=== PATIENT | female | born 1940 | race Asian ===

== ENCOUNTER 2018-02-12 23:22 | Inpatient (IN) | payer MEDICARE, OTHER ==
[~2018-02-12] VITALS: Ht 157.5 cm; Wt 39.5 kg
[~2018-02-12 23:22] MED LIST: BYSTOLIC10 MG ORAL; HYDRALAZINE HC100 MG ORAL; NIFEDIPINE XL30 M1 ORAL; SILDENAFIL20 MG ORAL
[2018-02-12] MEDS ORDERED: Sodium Chloride 500ML 500 ML IV ONE (23:31)
[2018-02-12 23:46] VITALS: BP 146/53
[2018-02-13] VITALS (10 sets, daily range): BP systolic 86–140; BP diastolic 40–78
--- NOTE | 2018-02-13 00:14 | Emergency Room Report ---
History of Present Illness General Chief Complaint: Chest Pain Source: Patient, Medical Record Present Illness HPI Patient was brought in with complaints of chest pain Started several hours ago prior to arrival Patient is at a nursing facility She had dialysis earlier in the morning today Feels of the pain started several hours after that Midsternal 5 out of 10 Denies any shortness of breath or cough and eyes any back or flank pain Patient gets dialysis Sunday and Saturdays Denies any fevers or chills Allergies: Coded Allergies: OLMESARTAN (Verified Allergy, Mild, 01/18/14) SWOOLEN BODY HEPARIN (Verified Adverse Reaction, Severe, 01/18/14) TOLD ALEJANDRA RE ICNov THAT PATIENT CANNOT HAVE HEPARIN. Patient History Past Medical History: see triage record Pertinent Family History: none Reviewed Nursing Documentation: PMH: Agreed; PSxH: Agreed Nursing Documentation-PMH Past Medical History: No History, Except For Hx Cardiac Problems: Yes - Heart disease; Heart failure; Cardiomyopathy; NSTEMI Hx Hypertension: Yes - Anemia Hx Diabetes: Yes Hx Cancer: No Hx Gastrointestinal Problems: No - Dysphagia; ESRD; Dialysis Hx Dialysis: Yes - [facility] LEFT ARM PERMACATH RIGHT SIDE CHEST Hx Neurological Problems: Yes Hx Cerebrovascular Accident: Yes - ICB NOV 2012 WITH SURGERY Hx Neurologic Surgery: Yes - 2013 Review of Systems All Other Systems: negative except mentioned in HPI Physical Exam Vital Signs Date Time Temp Pulse Resp B/P (MAP) Pulse Ox O2 Delivery O2 Flow Rate FiO2 02/12/18 23:23 88 16 141/76 98 Room Air Sp02 EP Interpretation: reviewed, normal General Appearance: no apparent distress Head: normocephalic, atraumatic Eyes: bilateral eye PERRL, bilateral eye EOMI ENT: normal pharynx, no angioedema Neck: supple Respiratory: lungs clear, normal breath sounds Cardiovascular #1: regular rate, rhythm, no edema Gastrointestinal: non tender Genitourinary: no CVA tenderness Musculoskeletal: back normal Neurologic: alert, oriented x3 Skin: other Lymphatic: no adenopathy Medical Decision Making Diagnostic Impression: Primary Impression: ACS (acute coronary syndrome) Additional Impression: Elevated troponin ER Course Patient is a fairly complex patient with multiple differential to consideration including but not limited to cardiac cardiopulmonary and vascular emergencies Patient's EKG does not show any obvious ST elevations Patient has done well throughout his stay At this time troponin elevated However the patient does have renal disease and dialysis Remains hemodynamically stable and admitted for further inpatient care Labs Test 02/12/18 23:59 White Blood Count 5.5 K/UL (4.8-10.8) Red Blood Count 4.11 M/UL (4.20-5.40) Hemoglobin 14.5 G/DL (12.0-16.0) Hematocrit 42.1 % (37.0-47.0) Mean Corpuscular Volume 102 FL (80-99) Mean Corpuscular Hemoglobin 35.3 PG (27.0-31.0) Mean Corpuscular Hemoglobin Concent 34.5 G/DL (32.0-36.0) Red Cell Distribution Width 15.9 % (11.6-14.8) Platelet Count 129 K/UL (150-450) Mean Platelet Volume 9.8 FL (6.5-10.1) Neutrophils (%) (Auto) 72.3 % (45.0-75.0) Lymphocytes (%) (Auto) 17.5 % (20.0-45.0) Monocytes (%) (Auto) 7.3 % (1.0-10.0) Eosinophils (%) (Auto) 1.4 % (0.0-3.0) Basophils (%) (Auto) 1.6 % (0.0-2.0) Sodium Level 130 MMOL/L (136-145) Potassium Level 4.4 MMOL/L (3.5-5.1) Chloride Level 91 MMOL/L (98-107) Carbon Dioxide Level 30 MMOL/L (21-32) Anion Gap 9 mmol/L (5-15) Blood Urea Nitrogen 17 mg/dL (7-18) Creatinine 3.2 MG/DL (0.55-1.30) Estimat Glomerular Filtration Rate mL/min (>60) Glucose Level 173 MG/DL (74-106) Calcium Level 7.8 MG/DL (8.5-10.1) Total Bilirubin 1.4 MG/DL (0.2-1.0) Direct Bilirubin 0.2 MG/DL (0.0-0.3) Aspartate Amino Transf (AST/SGOT) 56 U/L (15-37) Alanine Aminotransferase (ALT/SGPT) 14 U/L (12-78) Alkaline Phosphatase 135 U/L (46-116) Total Creatine Kinase 107 U/L (26-308) Creatine Kinase MB 1.9 NG/ML (0.0-3.6) Creatine Kinase MB Relative Index 1.7 Troponin I 1.550 ng/mL (0.000-0.056) Pro-B-Type Natriuretic Peptide 5946 pg/mL (0-125) Total Protein 9.6 G/DL (6.4-8.2) Albumin 2.6 G/DL (3.4-5.0) Globulin 7.0 g/dL Albumin/Globulin Ratio 0.4 (1.0-2.7) Lipase 219 U/L (73-393) EKG Diagnostic Results Rate: normal Rhythm: NSR ST Segments: other - Nonspecific ST and T-wave changes Rhythm Strip Diag. Results EP Interpretation: yes Rate: 88 Rhythm: NSR, no PVC's, no ectopy Chest X-Ray Diagnostic Results Chest X-Ray Diagnostic Results : Chest X-Ray Ordered: Yes # of Views/Limited/Complete: 1 View Indication: Chest Pain EP Interpretation: Yes Interpretation: no consolidation, no effusion, no pneumothorax Impression: No acute disease Electronically Signed by: Arcenio Rodriguez DO Last Vital Signs Date Time Temp Pulse Resp B/P (MAP) Pulse Ox O2 Delivery O2 Flow Rate FiO2 02/12/18 23:23 88 16 141/76 98 Room Air Status: improved Disposition: ADMITTED INPATIENT Condition: Serious Referrals: NON PHYSICIAN (PCP) Arcenio Rodriguez DO Feb 13, 2018 00:14
[2018-02-13] MEDS ORDERED: CALCIUM CARBON200 M1 PO (00:17)
[2018-02-13] MEDS ORDERED: ATORVASTATIN CA80 MG ORAL (00:17)
[2018-02-13] MEDS ORDERED: BENZONATATE100 MG ORAL (00:17)
[2018-02-13] MEDS ORDERED: CARVEDILOL6.25 MG ORAL (00:19)
[2018-02-13] MEDS ORDERED: PLAVIX75 MG ORAL (00:19)
[2018-02-13] MEDS ORDERED: CATAPRES0.1 MG ORAL (00:19)
[2018-02-13] MEDS ORDERED: FLUTICASONE PRO15 GM TOPIC (00:21)
[2018-02-13] MEDS ORDERED: DULCOLAX10 MG RC (00:21)
[2018-02-13] MEDS ORDERED: DIPHENHYDRAMINE25 M1 ORAL (00:21)
[2018-02-13 00:23] LABS: BASOPHILS % (AUTO) 1.6 % (0.0-2.0); EOSINOPHILS % (AUTO) 1.4 % (0.0-3.0); HEMATOCRIT 42.1 % (37.0-47.0); HEMOGLOBIN 14.5 G/DL (12.0-16.0); LYMPHOCYTES % (AUTO) 17.5 % (20.0-45.0); MEAN CORPUSCULAR VOLUME 102 FL (80-99); MONOCYTES % (AUTO) 7.3 % (1.0-10.0); NEUTROPHILS % (AUTO) 72.3 % (45.0-75.0); PLATELET COUNT 129 K/UL (150-450); RED BLOOD COUNT 4.11 M/UL (4.20-5.40); RED CELL DISTRIBUTION WIDTH 15.9 % (11.6-14.8); WHITE BLOOD COUNT 5.5 K/UL (4.8-10.8)
[2018-02-13] MEDS ORDERED: HEPARIN SO5000 UNIT2 SUBQ (00:24)
[2018-02-13] MEDS ORDERED: GUAIFENESI100 MG/5 M ORAL (00:24)
[2018-02-13] MEDS ORDERED: HYDROXYZINE HCL25 M1 PO (00:24)
[2018-02-13] MEDS ORDERED: LANTUS SOL100 UNIT/1 SUBQ (00:25)
[2018-02-13] MEDS ORDERED: LIDODERM700 M1 TOPIC (00:25)
[2018-02-13] MEDS ORDERED: ISOSORBIDE MONO30 M1 PO (00:25)
[2018-02-13] MEDS ORDERED: NEPHROVITE1 TAB ORAL (00:27)
[2018-02-13] MEDS ORDERED: LISINOPRIL10 MG ORAL (00:27)
[2018-02-13] MEDS ORDERED: MELATONIN3 M1 ORAL (00:27)
[2018-02-13] MEDS ORDERED: ACTOS45 MG ORAL (00:28)
[2018-02-13] MEDS ORDERED: MIRTAZAPINE15 MG ORAL (00:28)
[2018-02-13] MEDS ORDERED: RENVELA0.8 GM ORAL (00:28)
[2018-02-13] MEDS ORDERED: SENSIPAR30 MG ORAL (00:29)
[2018-02-13] MEDS ORDERED: Morphine Sulfate 2mg/ml Inj IVP ONE (00:45)
[2018-02-13 00:48] LABS: ANION GAP 9 mmol/L (5-15); BLOOD UREA NITROGEN 17 mg/dL (7-18); CALCIUM 7.8 MG/DL (8.5-10.1); CARBON DIOXIDE 30 MMOL/L (21-32); CHLORIDE 91 MMOL/L (98-107); CREATININE 3.2 MG/DL (0.55-1.30); POTASSIUM 4.4 MMOL/L (3.5-5.1); SODIUM 130 MMOL/L (136-145)
[2018-02-13 01:00] LABS: ALANINE AMINOTRANSFERASE 14 U/L (12-78); ALBUMIN 2.6 G/DL (3.4-5.0); ALBUMIN/GLOBULIN RATIO 0.4 (1.0-2.7); ALKALINE PHOSPHATASE 135 U/L (46-116); ASPARTATE AMINO TRANSFERASE 56 U/L (15-37); BILIRUBIN,TOTAL 1.4 MG/DL (0.2-1.0); CKMB 1.9 NG/ML (0.0-3.6); CREATINE KINASE 107 U/L (26-308)
[2018-02-13 01:09] LABS: BILIRUBIN,DIRECT 0.2 MG/DL (0.0-0.3)
[2018-02-13] MEDS ORDERED: SEROQUEL50 MG ORAL (04:08)
[2018-02-13] MEDS ORDERED: TRAMADOL HCL50 MG ORAL (04:08)
[2018-02-13] MEDS ORDERED: guaiFENesin 100mg/5ml Liq ud ORAL PRN (04:15)
[2018-02-13] MEDS ORDERED: HydrOXYzine tab 25 MG TAB ORAL PRN (04:15)
[2018-02-13] MEDS ORDERED: Heparin 5000 units/ml inj SUBQ SCH (06:00)
[2018-02-13] MEDS: NovoLOG Insulin Flexpen SUBQ SCH ×4 (06:30→21:21)
[2018-02-13] MEDS ORDERED: Imdur 30mg tab ORAL SCH (09:00)
[2018-02-13] MEDS ORDERED: Lisinopril 10mg tab ORAL SCH (09:00)
[2018-02-13] MEDS ORDERED: Carvedilol 6.25mg Tab ORAL SCH (09:00)
--- NOTE | 2018-02-13 09:24 | Diagnostic Imaging Report ---
Indication: Chest pain Technique: XRAY Chest 1v Comparison: 01/18/2014 Findings: Limited exam with low lung volumes and patient rotation. Heart is enlarged. Aorta is calcified and tortuous. There is mild interstitial edema. Linear atelectasis or scarring is noted at the left base. There is no large pleural effusion. No definite pneumothorax. There is osteopenia and degenerative change of the spine. Question mild age-indeterminate mid and lower thoracic vertebral body compression deformities. The previously seen dialysis catheter has been removed. There are multiple clips at the level of the left elbow/arm possibly related to dialysis access. There are atherosclerotic vascular calcifications. IMPRESSION: Limited exam. Cardiomegaly and mild interstitial opacification/edema. Linear opacity in the left midlung likely related to subsegmental atelectasis or scarring. Osteopenia with questionable mild compression deformities of some thoracic vertebral bodies. Clinical correlation recommended. Dedicated imaging of the spine can be obtained as clinically indicated. Atherosclerosis. Findings suggestive of end-stage renal disease/dialysis. Correlate clinically. Study obtained via the emergency department however patient admitted to the hospital at time of dictation of the final report.
[2018-02-13] MEDS: Nephrovite tab (Rena-Vite) ORAL SCH (09:27)
[2018-02-13] MEDS: Benzonatate 100mg Perles ORAL SCH ×3 (09:27→17:39)
[2018-02-13] MEDS: Renvela 800mg Pkt ORAL SCH ×3 (09:27→17:39)
[2018-02-13] MEDS: Sensipar 30mg Tab ORAL SCH (09:30)
[2018-02-13] MEDS: Levemir Flexpen SUBQ SCH (09:46)
--- NOTE | 2018-02-13 11:16 | History & Physical ---
History and Physical History & Physicial Dictated for Int Med-Dr Garcia no. [id number]. ANNY VALVERDE Feb 13, 2018 11:16
[2018-02-13 12:19] LABS: WHITE BLOOD COUNT 6.9 K/UL (4.8-10.8)
[2018-02-13 12:20] LABS: BASOPHILS % (AUTO) 1.3 % (0.0-2.0); EOSINOPHILS % (AUTO) 3.1 % (0.0-3.0); HEMOGLOBIN 11.6 G/DL (12.0-16.0); LYMPHOCYTES % (AUTO) 11.6 % (20.0-45.0); MEAN CORPUSCULAR VOLUME 104 FL (80-99); MONOCYTES % (AUTO) 9.3 % (1.0-10.0); NEUTROPHILS % (AUTO) 74.7 % (45.0-75.0); PLATELET COUNT 104 K/UL (150-450); RED BLOOD COUNT 3.38 M/UL (4.20-5.40)
--- NOTE | 2018-02-13 12:40 | Consultation ---
History of Present Illness General Date patient seen: Feb 13, 2018 Chief Complaint: Chest Pain Reason for Consultation: cough Present Illness HPI 77 year old female with hx of ESRF, on HD, DM, PVD, with ulcers on her right dorman and gangrenous toe, prison resident CHELSEA with cc of dyspnea, productive cough and chest pain. Pt is a poor historian and most of the information is obtained from the grand son at the bed site. She looks cachectic and chronically ill, in no acute distress. Allergies: Coded Allergies: OLMESARTAN (Verified Allergy, Mild, 01/18/14) SWOOLEN BODY DRONABINOL (Verified Allergy, Unknown, 02/13/18) HEPARIN (Verified Adverse Reaction, Severe, 01/18/14) DR TOLD SONS RE ICNov THAT PATIENT CANNOT HAVE HEPARIN. Medication History Scheduled Atorvastatin Calcium* (Lipitor*), 80 MG ORAL BEDTIME, (Reported) Benzonatate* (Benzonatate*), 100 MG ORAL THREE TIMES A DAY, (Reported) Calcium Carbonate (Calcium Carbonate), 200 MG PO EVERY 8 HOURS, (Reported) Carvedilol* (Carvedilol*), 6.25 MG ORAL EVERY 12 HOURS, (Reported) Cinacalcet* (Sensipar*), 30 MG ORAL DAILY, (Reported) Clonidine Hcl* (Catapres*), 0.1 MG ORAL BID, (Reported) Clopidogrel Bisulfate* (Plavix*), 75 MG ORAL DAILY, (Reported) Fluticasone Propionate (Fluticasone Propionate), 1 APPLIC TOPIC TWICE A DAY, ( Reported) Heparin Sod (Porcine) (Heparin Sodium*), 5,000 UNITS SUBQ EVERY 8 HOURS, ( Reported) Insulin Glargine (Lantus), 5 UNITS SUBQ DAILY, (Reported) Isosorbide Mononitrate (Isosorbide Mononitrate Er), 30 MG PO DAILY, (Reported) Lisinopril* (Lisinopril*), 10 MG ORAL DAILY, (Reported) Mirtazapine* (Remeron*), 15 MG ORAL BEDTIME, (Reported) Pioglitazone Hcl* (Actos*), 45 MG ORAL DAILY, (Reported) Quetiapine Fumarate (Seroquel), 25 MG ORAL 3XW, (Reported) Sevelamer Carbonate* (Renvela*), 800 MG ORAL THREE TIMES A DAY, (Reported) Vitamin B Cmplx/Vit C/Folic AC (Nephro-Luisa Tablet), 1 TAB ORAL DAILY, (Reported ) Scheduled PRN Bisacodyl (Dulcolax), 10 MG RC EVERY 6 HOURS PRN for Constipation, (Reported) Diphenhydramine Hcl* (Diphenhydramine Hcl*), 25 MG ORAL Q6H PRN for Itching, ( Reported) Guaifenesin* (Guaifenesin), 10 ML ORAL Q4H PRN for For Cough, (Reported) Hydroxyzine Hcl (Hydroxyzine Hcl), 25 MG PO Q6HR PRN for Itching, (Reported) Lidocaine (Lidoderm), 1 PATCH TOPIC EVERY 12 HOURS PRN for For Pain, (Reported) Tramadol Hcl* (Ultram*), 25 MG ORAL Q6H PRN for Moderate Pain (Pain Scale 4-6), (Reported) Discontinued Medications Hydralazine Hcl* (Hydralazine Hcl*), 100 MG ORAL EVERY 8 HOURS, (Reported) Discontinued Reason: MD discontinued med Melatonin (Melatonin), 3 MG ORAL BEDTIME PRN for Insomnia, (Reported) Discontinued Reason: MD discontinued med Nebivolol Hcl (Bystolic*), 20 MG ORAL DAILY, (Reported) Discontinued Reason: MD discontinued med Nifedipine Xl* (Nifedipine Xl*), 90 MG ORAL DAILY, (Reported) Discontinued Reason: MD discontinued med Sildenafil Citrate (Sildenafil), 25 MG ORAL TID, (Reported) Discontinued Reason: MD discontinued med Patient History Healthcare decision maker Resuscitation status Do Not Resuscitate Advanced Directive on File Yes Past Medical/Surgical History Past Medical/Surgical History: (1) Diabetes mellitus (2) PVD (peripheral vascular disease) (3) Severe protein-calorie malnutrition (4) ESRD (end stage renal disease) on dialysis Review of Systems All Other Systems: negative except mentioned in HPI Physical Exam General Appearance: cachetic Lines, tubes and drains: peripheral HEENT: normocephalic, atraumatic Neck: non-tender, normal alignment Respiratory/Chest: chest wall non-tender, lungs clear Breasts: no masses Cardiovascular/Chest: normal peripheral pulses Abdomen: normal bowel sounds, non tender Genitourinary/Rectal: normal genital exam Extremities: normal range of motion Skin Exam: other - vascular ulcer at right dorman, gangrenous toe Last 24 Hour Vital Signs Date Time Temp Pulse Resp B/P (MAP) Pulse Ox O2 Delivery O2 Flow Rate FiO2 02/13/18 09:27 140/68 02/13/18 09:27 140/68 02/13/18 09:27 140/68 02/13/18 09:27 75 140/68 02/13/18 08:00 97.0 75 20 140/68 99 Room Air 97.0 02/13/18 08:00 79 02/13/18 04:00 80 02/13/18 04:00 97.2 75 16 133/74 99 97.2 02/13/18 02:30 97.5 81 18 138/77 98 Room Air 97.5 02/13/18 02:12 81 02/13/18 02:05 97.7 79 16 140/78 98 Room Air 97.7 02/13/18 01:45 97.7 79 16 140/78 98 Room Air 97.7 02/13/18 01:32 97.7 02/13/18 00:45 97.9 78 18 134/65 99 Room Air 97.9 02/12/18 23:46 83 18 Room Air 02/12/18 23:46 97.9 83 18 146/53 98 Room Air 97.9 02/12/18 23:23 88 16 141/76 98 Room Air Intake and Output 02/12/18 02/13/18 19:00 07:00 Intake Total 740 ml Balance 740 ml Intake Oral 240 ml IV Total 500 ml Laboratory Tests Test 02/12/18 23:59 02/13/18 11:20 White Blood Count 5.5 K/UL (4.8-10.8) 6.9 K/UL (4.8-10.8) Red Blood Count 4.11 M/UL (4.20-5.40) L 3.38 M/UL (4.20-5.40) L Hemoglobin 14.5 G/DL (12.0-16.0) 11.6 G/DL (12.0-16.0) L Hematocrit 42.1 % (37.0-47.0) 35.0 % (37.0-47.0) L Mean Corpuscular Volume 102 FL (80-99) H 104 FL (80-99) H Mean Corpuscular Hemoglobin 35.3 PG (27.0-31.0) H 34.3 PG (27.0-31.0) H Mean Corpuscular Hemoglobin Concent 34.5 G/DL (32.0-36.0) 33.1 G/DL (32.0-36.0) Red Cell Distribution Width 15.9 % (11.6-14.8) H 16.0 % (11.6-14.8) H Platelet Count 129 K/UL (150-450) L 104 K/UL (150-450) L Mean Platelet Volume 9.8 FL (6.5-10.1) 8.8 FL (6.5-10.1) Neutrophils (%) (Auto) 72.3 % (45.0-75.0) 74.7 % (45.0-75.0) Lymphocytes (%) (Auto) 17.5 % (20.0-45.0) L 11.6 % (20.0-45.0) L Monocytes (%) (Auto) 7.3 % (1.0-10.0) 9.3 % (1.0-10.0) Eosinophils (%) (Auto) 1.4 % (0.0-3.0) 3.1 % (0.0-3.0) H Basophils (%) (Auto) 1.6 % (0.0-2.0) 1.3 % (0.0-2.0) Sodium Level 130 MMOL/L (136-145) L Pending Potassium Level 4.4 MMOL/L (3.5-5.1) Pending Chloride Level 91 MMOL/L (98-107) L Pending Carbon Dioxide Level 30 MMOL/L (21-32) Pending Anion Gap 9 mmol/L (5-15) Blood Urea Nitrogen 17 mg/dL (7-18) Pending Creatinine 3.2 MG/DL (0.55-1.30) H Pending Estimat Glomerular Filtration Rate mL/min (>60) Pending Glucose Level 173 MG/DL (74-106) H Pending Calcium Level 7.8 MG/DL (8.5-10.1) L Pending Total Bilirubin 1.4 MG/DL (0.2-1.0) H Pending Direct Bilirubin 0.2 MG/DL (0.0-0.3) Aspartate Amino Transf (AST/SGOT) 56 U/L (15-37) H Pending Alanine Aminotransferase (ALT/SGPT) 14 U/L (12-78) Pending Alkaline Phosphatase 135 U/L (46-116) H Pending Total Creatine Kinase 107 U/L (26-308) Creatine Kinase MB 1.9 NG/ML (0.0-3.6) Creatine Kinase MB Relative Index 1.7 Troponin I 1.550 ng/mL (0.000-0.056) Pending Pro-B-Type Natriuretic Peptide 5946 pg/mL (0-125) H Total Protein 9.6 G/DL (6.4-8.2) H Pending Albumin 2.6 G/DL (3.4-5.0) L Pending Globulin 7.0 g/dL Pending Albumin/Globulin Ratio 0.4 (1.0-2.7) L Lipase 219 U/L (73-393) Phosphorus Level Pending Magnesium Level Pending Height (Feet): 5 Height (Inches): 2.00 Weight (Pounds): 87 Medications Current Medications Medications (Trade) Dose Ordered Sig/Finn Route PRN Reason Start Time Stop Time Status Last Admin Dose Admin Atorvastatin Calcium (Lipitor) 80 mg BEDTIME ORAL 02/13/18 21:00 03/15/18 20:59 Benzonatate (Tessalon Perles) 100 mg THREE TIMES A DAY ORAL 02/13/18 09:00 03/15/18 08:59 02/13/18 09:27 Bisacodyl (Dulcolax) 10 mg EVERY 6 HOURS PRN RECTAL Constipation 02/13/18 04:15 03/15/18 04:14 Carvedilol (Coreg) 6.25 mg EVERY 12 HOURS ORAL 02/13/18 09:00 03/15/18 08:59 02/13/18 09:27 Cinacalcet (Sensipar) 30 mg DAILY ORAL 02/13/18 09:00 03/15/18 08:59 02/13/18 09:30 Clonidine HCl (Catapres Tab) 0.1 mg BID ORAL 02/13/18 09:00 03/15/18 08:59 02/13/18 09:27 Clopidogrel Bisulfate (Plavix) 75 mg DAILY ORAL 02/13/18 09:00 03/15/18 08:59 02/13/18 09:26 Dextrose (Dextrose 50%) 25 ml STAT PRN IV Hypoglycemia 02/13/18 04:00 03/15/18 03:59 Dextrose (Dextrose 50%) 50 ml STAT PRN IV Hypoglycemia 02/13/18 04:00 03/15/18 03:59 Diphenhydramine HCl (Benadryl) 25 mg Q6H PRN ORAL Itching 02/13/18 04:15 03/15/18 04:14 Guaifenesin (Robitussin) 200 mg Q4H PRN ORAL For Cough 02/13/18 04:15 03/15/18 04:14 Hydroxyzine HCl (Atarax) 25 mg Q6HR PRN ORAL Itching 02/13/18 04:15 03/15/18 04:14 Insulin Aspart (NovoLOG) BEFORE MEALS AND HS SUBQ 02/13/18 06:30 03/15/18 06:29 Insulin Detemir (Levemir) 5 units DAILY SUBQ 02/13/18 09:00 03/15/18 08:59 02/13/18 09:46 Isosorbide Mononitrate (Imdur) 30 mg DAILY ORAL 02/13/18 09:00 03/15/18 08:59 02/13/18 09:27 Lidocaine (Lidoderm 5% PATCH) 1 patch EVERY 12 HOURS PRN TDERMAL For Pain 02/13/18 04:15 03/15/18 04:14 Lisinopril (Zestril) 10 mg DAILY ORAL 02/13/18 09:00 03/15/18 08:59 02/13/18 09:27 Mirtazapine (Remeron) 15 mg BEDTIME ORAL 02/13/18 21:00 03/15/18 20:59 Non-Formulary Medication (Non-Formulary Med) 1 ea DAILY ORAL 02/13/18 09:00 03/15/18 08:59 UNV Pioglitazone HCl (Actos) 45 mg DAILY ORAL 02/13/18 09:00 03/15/18 08:59 02/13/18 09:27 Quetiapine Fumarate (SEROquel) 25 mg DAILYPRN PRN ORAL PRIOR TO HD SESSIONS ONLY 02/13/18 08:45 03/15/18 08:44 Sevelamer Carbonate (Renvela) 800 mg THREE TIMES A DAY ORAL 02/13/18 09:00 03/15/18 08:59 02/13/18 09:27 Tramadol HCl (Ultram) 25 mg Q6H PRN ORAL Moderate Pain (Pain Scale 4-6) 02/13/18 07:00 02/20/18 06:59 Vitamin B Complex/ Vit C/Folic Acid (Nephrovite) 1 tab DAILY ORAL 02/13/18 09:00 03/15/18 08:59 02/13/18 09:27 Assessment/Plan Problem List: (1) Acute bronchitis ICD Codes: J20.9 - Acute bronchitis, unspecified SNOMED: 34987831 (2) Pulmonary edema ICD Codes: J81.1 - Chronic pulmonary edema SNOMED: 87100122 (3) ESRD (end stage renal disease) on dialysis ICD Codes: N18.6 - End stage renal disease; Z99.2 - Dependence on renal dialysis SNOMED: 861719138 (4) Severe protein-calorie malnutrition ICD Codes: E43 - Unspecified severe protein-calorie malnutrition SNOMED: 392333878 (5) PVD (peripheral vascular disease) ICD Codes: I73.9 - Peripheral vascular disease, unspecified SNOMED: 667703724 (6) Congestive heart failure (CHF) (7) Hypoxia Assessment/Plan check sputum iv abx HD respiratory treatment titrate fio2 to sat of 92% HD by chemical pumper optimize cardiac meds dvt prophylaxis. Get Joyce MD Feb 13, 2018 12:40
[2018-02-13] MEDS ORDERED: Albuterol/Ipratropium 3ml neb HHN PRN (12:45)
[2018-02-13] MEDS ORDERED: Promethazine/Codeine 5ml UD ORAL PRN (12:45)
[2018-02-13 12:50] LABS: ALANINE AMINOTRANSFERASE 13 U/L (12-78); ALBUMIN 2.1 G/DL (3.4-5.0); ALBUMIN/GLOBULIN RATIO 0.4 (1.0-2.7); ALKALINE PHOSPHATASE 113 U/L (46-116); ANION GAP 9 mmol/L (5-15); ASPARTATE AMINO TRANSFERASE 24 U/L (15-37); BILIRUBIN,TOTAL 0.9 MG/DL (0.2-1.0); BLOOD UREA NITROGEN 23 mg/dL (7-18); CALCIUM 7.1 MG/DL (8.5-10.1); CARBON DIOXIDE 32 MMOL/L (21-32); CHLORIDE 93 MMOL/L (98-107); CREATININE 3.9 MG/DL (0.55-1.30); PHOSPHORUS 5.3 MG/DL (2.5-4.9); POTASSIUM 3.2 MMOL/L (3.5-5.1); SODIUM 134 MMOL/L (136-145)
--- NOTE | 2018-02-13 13:30 | History and Physical Report ---
DATE OF ADMISSION: 02/12/2018 CHIEF COMPLAINT: The patient is a 77-year-old female, who presents with complaint of chest pain. HISTORY OF PRESENT ILLNESS: Much of the history and physical was obtained from the patient's son, Tami Lombardo, at the bedside. The patient herself understands Hungarian, however, she is Setswana speaking. The patient is a resident of [facility]. According to staff at [facility], the patient began to experience chest pain about 5 to 6 days ago. Chest pain increased last evening, 02/12/2018. The patient describes the chest pain "allover." The patient had associated dizziness. The patient states she was unable to open her eyes. The chest pain increased over the last 5 to 6 hours prior to admission. The patient presented to [facility]. The patient was found to have elevated troponin and elevated BNP. The patient was admitted for chest pain to rule out acute coronary syndrome. REVIEW OF SYSTEMS: CONSTITUTIONAL: The patient denies weight loss or weight gain. The patient denies fevers or chills. HEENT: The patient denies ear or throat pain. The patient denies headache. CARDIOVASCULAR: The patient complains of chest pain as above. The patient denies palpitations. CHEST: The patient denies wheeze or shortness of breath. ABDOMINAL: The patient denies nausea, vomiting, diarrhea, or constipation. GENITOURINARY: The patient denies dysuria or increased frequency of urination. NEUROMUSCULAR: The patient denies seizures or generalized weakness. PAST MEDICAL HISTORY: Significant for: 1. Coronary artery disease, status post stent placement. 2. Congestive heart failure. 3. End-stage renal disease, on hemodialysis every Sunday, , and Sunday. Last dialysis was February 12, 2018. 4. Diabetes type 2. 5. Hypertension. 6. Cerebrovascular disease, status post cerebrovascular accident in 2013. 7. Peripheral vascular disease. PAST SURGICAL HISTORY: Significant for: 1. Craniotomy in 2013 2. Left hip replacement in 2016. 3. Left upper extremity arteriovenous graft for hemodialysis. 4. Pacemaker implantation in 2016. 5. Renal transplant. 6. Left heart catheterization in 2014 with stent placement. 7. Pacemaker implantation in 2016. CURRENT MEDICATIONS: 1. Lipitor 80 mg p.o. daily. 2. Benzoate 100 mg p.o. q.8 hours p.r.n. 3. Calcium carbonate 200 mg p.o. q.8 hours. 4. Carvedilol 6.2 mg p.o. twice daily. 5. Clonidine 0.1 mg p.o. 4 times daily. 6. Clopidogrel 75 mg p.o. daily. 7. cream applied twice daily. 8. Heparin 5000 units subcutaneously q.8 hours. 9. Hydroxyzine 25 mg p.o. q.6 hours p.r.n. 10. Lantus insulin 5 units subcutaneously daily. 11. Isosorbide mononitrate 30 mg p.o. daily. 12. Lisinopril 10 mg p.o. daily. 13. Melatonin 3 mg p.o. nightly. 14. Nephro-Luisa 1 tablet p.o. daily. 15. Pioglitazone 45 mg p.o. daily. 16. Remeron 15 mg p.o. nightly. 17. Renvela 800 mg p.o. 3 times daily. 18. Sensipar 30 mg p.o. daily. ALLERGIES: To Benicar. SOCIAL HISTORY: The patient is a . The patient denies tobacco or alcohol use. The patient has a grown son, who is at the bedside. PHYSICAL EXAMINATION: VITAL SIGNS: Temperature 97.7, respirations 16, pulse 79, blood pressure 140/78. GENERAL: The patient is a thin-appearing female, in no apparent distress. HEENT: Eyes, pupils equal and responsive to light and accommodation. Extraocular movements are intact. NECK: Supple. No lymphadenopathy. CHEST: Lungs are clear to auscultation bilaterally without wheezes or rales. CARDIOVASCULAR: Regular rhythm and rate. S1, S2 normal without murmurs, rubs, or gallops. ABDOMEN: Soft, nontender, nondistended. Positive bowel sounds. No evidence of hepatosplenomegaly. Currently, no rebound or guarding noted. EXTREMITIES: Negative for clubbing, cyanosis, or edema. There are multiple ulcers over the right leg and right arm which are healing. NEUROLOGIC: Cranial nerves II through XII grossly intact without focal deficits. Motor strength is 5/5, bilaterally intact. Deep tendon reflexes are 2+, plantar. LABORATORY STUDIES: WBC 5.5, hemoglobin 14.5, hematocrit 42.1, platelet 129,000. Sodium 130, potassium 4.4, chloride 91, CO2 30, BUN 17, creatinine 3.3, and glucose 173. Troponin elevated at 1.55. BNP elevated at 5946. ASSESSMENT: This is a 77-year-old female with: 1. Chest pain. 2. Elevated troponin. 3. Acute on chronic congestive heart failure. 4. End-stage renal disease. 5. Coronary artery disease. 6. Cerebrovascular disease. 7. Diabetes type 2. 8. Hypertension. 9. Peripheral vascular disease. 10. Pacemaker in situ. TREATMENT: 1. Chest pain/elevated troponin/congestive heart failure. Cardiology consultation has been obtained with Dr. Abhijit Simental. An echocardiogram is pending. Serial troponin levels will be performed. Serial BMP levels will be performed. 2. End-stage renal disease. The patient's last dialysis was on Monday, February 12, 2018. Nephrology consultation has been obtained with Dr. Newton. We will follow recommendations of Dr. Newton. 3. Coronary artery disease. As above, Cardiology consultation has been obtained with Dr. Simental. 4. History of cerebrovascular disease. 5. Diabetes type 2. The patient has been started on NovoLog sliding scale. 6. Hypertension. Continue lisinopril and Coreg as above. 7. Peripheral vascular disease. 8. Pacemaker in situ. Victorino Merino M.D. DR: Andrés JOB#: [id number] CC:
--- NOTE | 2018-02-13 14:33 | Consultation ---
History of Present Illness General Date patient seen: Feb 13, 2018 Time patient seen: 14:19 Chief Complaint: Chest Pain Reason for Consultation: cough Present Illness HPI 77 yo F with x of ESRD on HD TThS L AVG and R chest permacath, DM2, HLD, CVA 2013 s/p craniotomy,s/p L hip replacement 2016, CHF/ICM s/p PPM 2016, CAD/ NSTEMI s/p stent, PVD w/ ulcers on R dorman and gangrenous toe, alf resident presents to ED on 02/12 with dyspnea, productive cough, CP (midsternal, 02/28) w/ associated dizziness. In ED found to have elevated troponin, BNP. Denies SOB, f/c afebrile, no leukocytosis. At RA. Allergies: Coded Allergies: OLMESARTAN (Verified Allergy, Mild, 01/18/14) SWOOLEN BODY DRONABINOL (Verified Allergy, Unknown, 02/13/18) HEPARIN (Verified Adverse Reaction, Severe, 01/18/14) TOLD SONS RE Nov THAT PATIENT CANNOT HAVE HEPARIN. Medication History Scheduled Atorvastatin Calcium* (Lipitor*), 80 MG ORAL BEDTIME, (Reported) Benzonatate* (Benzonatate*), 100 MG ORAL THREE TIMES A DAY, (Reported) Calcium Carbonate (Calcium Carbonate), 200 MG PO EVERY 8 HOURS, (Reported) Carvedilol* (Carvedilol*), 6.25 MG ORAL EVERY 12 HOURS, (Reported) Cinacalcet* (Sensipar*), 30 MG ORAL DAILY, (Reported) Clonidine Hcl* (Catapres*), 0.1 MG ORAL BID, (Reported) Clopidogrel Bisulfate* (Plavix*), 75 MG ORAL DAILY, (Reported) Fluticasone Propionate (Fluticasone Propionate), 1 APPLIC TOPIC TWICE A DAY, ( Reported) Heparin Sod (Porcine) (Heparin Sodium*), 5,000 UNITS SUBQ EVERY 8 HOURS, ( Reported) Insulin Glargine (Lantus), 5 UNITS SUBQ DAILY, (Reported) Isosorbide Mononitrate (Isosorbide Mononitrate Er), 30 MG PO DAILY, (Reported) Lisinopril* (Lisinopril*), 10 MG ORAL DAILY, (Reported) Mirtazapine* (Remeron*), 15 MG ORAL BEDTIME, (Reported) Pioglitazone Hcl* (Actos*), 45 MG ORAL DAILY, (Reported) Quetiapine Fumarate (Seroquel), 25 MG ORAL 3XW, (Reported) Sevelamer Carbonate* (Renvela*), 800 MG ORAL THREE TIMES A DAY, (Reported) Vitamin B Cmplx/Vit C/Folic AC (Nephro-Luisa Tablet), 1 TAB ORAL DAILY, (Reported ) Scheduled PRN Bisacodyl (Dulcolax), 10 MG RC EVERY 6 HOURS PRN for Constipation, (Reported) Diphenhydramine Hcl* (Diphenhydramine Hcl*), 25 MG ORAL Q6H PRN for Itching, ( Reported) Guaifenesin* (Guaifenesin), 10 ML ORAL Q4H PRN for For Cough, (Reported) Hydroxyzine Hcl (Hydroxyzine Hcl), 25 MG PO Q6HR PRN for Itching, (Reported) Lidocaine (Lidoderm), 1 PATCH TOPIC EVERY 12 HOURS PRN for For Pain, (Reported) Tramadol Hcl* (Ultram*), 25 MG ORAL Q6H PRN for Moderate Pain (Pain Scale 4-6), (Reported) Discontinued Medications Hydralazine Hcl* (Hydralazine Hcl*), 100 MG ORAL EVERY 8 HOURS, (Reported) Discontinued Reason: MD discontinued med Melatonin (Melatonin), 3 MG ORAL BEDTIME PRN for Insomnia, (Reported) Discontinued Reason: MD discontinued med Nebivolol Hcl (Bystolic*), 20 MG ORAL DAILY, (Reported) Discontinued Reason: MD discontinued med Nifedipine Xl* (Nifedipine Xl*), 90 MG ORAL DAILY, (Reported) Discontinued Reason: MD discontinued med Sildenafil Citrate (Sildenafil), 25 MG ORAL TID, (Reported) Discontinued Reason: MD discontinued med Patient History Healthcare decision maker Resuscitation status Do Not Resuscitate Advanced Directive on File Yes Patient History Narrative Pmhx: as above Shx: The patient is a . The patient denies tobacco or alcohol use. The patient has a grown son, who is at the bedside. Fhx: non contributory Review of Systems All Other Systems: negative except mentioned in HPI Physical Exam Physical Exam Narrative GENERAL: The patient is a thin-appearing female, in no apparent distress. HEENT: Eyes, pupils equal and responsive to light and accommodation. Extraocular movements are intact. NECK: Supple. No lymphadenopathy. CHEST: Lungs are clear to auscultation bilaterally without wheezes or rales. CARDIOVASCULAR: Regular rhythm and rate. S1, S2 normal without murmurs, rubs, or gallops. ABDOMEN: Soft, nontender, nondistended. Positive bowel sounds. No evidence of hepatosplenomegaly. Currently, no rebound or guarding noted. EXTREMITIES: Negative for clubbing, cyanosis, or edema. There are multiple ulcers over the right leg and right arm which are healing. Last 24 Hour Vital Signs Date Time Temp Pulse Resp B/P (MAP) Pulse Ox O2 Delivery O2 Flow Rate FiO2 02/13/18 12:00 97.2 68 20 102/49 99 Room Air 97.2 02/13/18 12:00 70 02/13/18 09:27 140/68 02/13/18 09:27 140/68 02/13/18 09:27 140/68 02/13/18 09:27 75 140/68 02/13/18 08:00 97.0 75 20 140/68 99 Room Air 97.0 02/13/18 08:00 79 02/13/18 04:00 80 02/13/18 04:00 97.2 75 16 133/74 99 97.2 02/13/18 02:30 97.5 81 18 138/77 98 Room Air 97.5 02/13/18 02:12 81 02/13/18 02:05 97.7 79 16 140/78 98 Room Air 97.7 02/13/18 01:45 97.7 79 16 140/78 98 Room Air 97.7 02/13/18 01:32 97.7 02/13/18 00:45 97.9 78 18 134/65 99 Room Air 97.9 02/12/18 23:46 83 18 Room Air 02/12/18 23:46 97.9 83 18 146/53 98 Room Air 97.9 02/12/18 23:23 88 16 141/76 98 Room Air Intake and Output 02/12/18 02/13/18 19:00 07:00 Intake Total 740 ml Balance 740 ml Intake Oral 240 ml IV Total 500 ml Laboratory Tests Test 02/12/18 23:59 02/13/18 11:20 White Blood Count 5.5 K/UL (4.8-10.8) 6.9 K/UL (4.8-10.8) Red Blood Count 4.11 M/UL (4.20-5.40) L 3.38 M/UL (4.20-5.40) L Hemoglobin 14.5 G/DL (12.0-16.0) 11.6 G/DL (12.0-16.0) L Hematocrit 42.1 % (37.0-47.0) 35.0 % (37.0-47.0) L Mean Corpuscular Volume 102 FL (80-99) H 104 FL (80-99) H Mean Corpuscular Hemoglobin 35.3 PG (27.0-31.0) H 34.3 PG (27.0-31.0) H Mean Corpuscular Hemoglobin Concent 34.5 G/DL (32.0-36.0) 33.1 G/DL (32.0-36.0) Red Cell Distribution Width 15.9 % (11.6-14.8) H 16.0 % (11.6-14.8) H Platelet Count 129 K/UL (150-450) L 104 K/UL (150-450) L Mean Platelet Volume 9.8 FL (6.5-10.1) 8.8 FL (6.5-10.1) Neutrophils (%) (Auto) 72.3 % (45.0-75.0) 74.7 % (45.0-75.0) Lymphocytes (%) (Auto) 17.5 % (20.0-45.0) L 11.6 % (20.0-45.0) L Monocytes (%) (Auto) 7.3 % (1.0-10.0) 9.3 % (1.0-10.0) Eosinophils (%) (Auto) 1.4 % (0.0-3.0) 3.1 % (0.0-3.0) H Basophils (%) (Auto) 1.6 % (0.0-2.0) 1.3 % (0.0-2.0) Sodium Level 130 MMOL/L (136-145) L 134 MMOL/L (136-145) L Potassium Level 4.4 MMOL/L (3.5-5.1) 3.2 MMOL/L (3.5-5.1) L Chloride Level 91 MMOL/L (98-107) L 93 MMOL/L (98-107) L Carbon Dioxide Level 30 MMOL/L (21-32) 32 MMOL/L (21-32) Anion Gap 9 mmol/L (5-15) 9 mmol/L (5-15) Blood Urea Nitrogen 17 mg/dL (7-18) 23 mg/dL (7-18) H Creatinine 3.2 MG/DL (0.55-1.30) H 3.9 MG/DL (0.55-1.30) H Estimat Glomerular Filtration Rate mL/min (>60) mL/min (>60) Glucose Level 173 MG/DL (74-106) H 161 MG/DL (74-106) H Calcium Level 7.8 MG/DL (8.5-10.1) L 7.1 MG/DL (8.5-10.1) L Total Bilirubin 1.4 MG/DL (0.2-1.0) H 0.9 MG/DL (0.2-1.0) Direct Bilirubin 0.2 MG/DL (0.0-0.3) Aspartate Amino Transf (AST/SGOT) 56 U/L (15-37) H 24 U/L (15-37) Alanine Aminotransferase (ALT/SGPT) 14 U/L (12-78) 13 U/L (12-78) Alkaline Phosphatase 135 U/L (46-116) H 113 U/L (46-116) Total Creatine Kinase 107 U/L (26-308) Creatine Kinase MB 1.9 NG/ML (0.0-3.6) Creatine Kinase MB Relative Index 1.7 Troponin I 1.550 ng/mL (0.000-0.056) 1.421 ng/mL (0.000-0.056) Pro-B-Type Natriuretic Peptide 5946 pg/mL (0-125) H Total Protein 9.6 G/DL (6.4-8.2) H 7.3 G/DL (6.4-8.2) Albumin 2.6 G/DL (3.4-5.0) L 2.1 G/DL (3.4-5.0) L Globulin 7.0 g/dL 5.2 g/dL Albumin/Globulin Ratio 0.4 (1.0-2.7) L 0.4 (1.0-2.7) L Lipase 219 U/L (73-393) Phosphorus Level 5.3 MG/DL (2.5-4.9) H Magnesium Level 2.1 MG/DL (1.8-2.4) Height (Feet): 5 Height (Inches): 2.00 Weight (Pounds): 87 Medications Current Medications Medications (Trade) Dose Ordered Sig/Finn Route PRN Reason Start Time Stop Time Status Last Admin Dose Admin Albuterol/ Ipratropium (Albuterol/ Ipratropium) 3 ml EVERY 4 HOURS PRN HHN Shortness of Breath 02/13/18 12:45 02/18/18 12:44 Atorvastatin Calcium (Lipitor) 80 mg BEDTIME ORAL 02/13/18 21:00 03/15/18 20:59 Benzonatate (Tessalon Perles) 100 mg THREE TIMES A DAY ORAL 02/13/18 09:00 03/15/18 08:59 02/13/18 12:39 Bisacodyl (Dulcolax) 10 mg EVERY 6 HOURS PRN RECTAL Constipation 02/13/18 04:15 03/15/18 04:14 Carvedilol (Coreg) 6.25 mg EVERY 12 HOURS ORAL 02/13/18 09:00 03/15/18 08:59 02/13/18 09:27 Cinacalcet (Sensipar) 30 mg DAILY ORAL 02/13/18 09:00 03/15/18 08:59 02/13/18 09:30 Clonidine HCl (Catapres Tab) 0.1 mg BID ORAL 02/13/18 09:00 03/15/18 08:59 02/13/18 09:27 Clopidogrel Bisulfate (Plavix) 75 mg DAILY ORAL 02/13/18 09:00 03/15/18 08:59 02/13/18 09:26 Dextrose (Dextrose 50%) 25 ml STAT PRN IV Hypoglycemia 02/13/18 04:00 03/15/18 03:59 Dextrose (Dextrose 50%) 50 ml STAT PRN IV Hypoglycemia 02/13/18 04:00 03/15/18 03:59 Diphenhydramine HCl (Benadryl) 25 mg Q6H PRN ORAL Itching 02/13/18 04:15 03/15/18 04:14 Guaifenesin (Robitussin) 200 mg Q4H PRN ORAL For Cough 02/13/18 04:15 03/15/18 04:14 Hydroxyzine HCl (Atarax) 25 mg Q6HR PRN ORAL Itching 02/13/18 04:15 03/15/18 04:14 Insulin Aspart (NovoLOG) BEFORE MEALS AND HS SUBQ 02/13/18 06:30 03/15/18 06:29 02/13/18 12:39 Insulin Detemir (Levemir) 5 units DAILY SUBQ 02/13/18 09:00 03/15/18 08:59 02/13/18 09:46 Isosorbide Mononitrate (Imdur) 30 mg DAILY ORAL 02/13/18 09:00 03/15/18 08:59 02/13/18 09:27 Levofloxacin 100 ml @ 100 mls/hr Q24H IVPB 02/13/18 14:00 02/20/18 13:59 Lidocaine (Lidoderm 5% PATCH) 1 patch EVERY 12 HOURS PRN TDERMAL For Pain 02/13/18 04:15 03/15/18 04:14 Lisinopril (Zestril) 10 mg DAILY ORAL 02/13/18 09:00 03/15/18 08:59 02/13/18 09:27 Mirtazapine (Remeron) 15 mg BEDTIME ORAL 02/13/18 21:00 03/15/18 20:59 Non-Formulary Medication (Non-Formulary Med) 1 ea DAILY ORAL 02/13/18 09:00 03/15/18 08:59 UNV Pioglitazone HCl (Actos) 45 mg DAILY ORAL 02/13/18 09:00 03/15/18 08:59 02/13/18 09:27 Promethazine HCl/ Codeine (Phenergan with Codeine) 5 ml Q4H PRN ORAL For Cough 02/13/18 12:45 03/15/18 12:44 Quetiapine Fumarate (SEROquel) 25 mg DAILYPRN PRN ORAL PRIOR TO HD SESSIONS ONLY 02/13/18 08:45 03/15/18 08:44 Sevelamer Carbonate (Renvela) 800 mg THREE TIMES A DAY ORAL 02/13/18 09:00 03/15/18 08:59 02/13/18 12:39 Tramadol HCl (Ultram) 25 mg Q6H PRN ORAL Moderate Pain (Pain Scale 4-6) 02/13/18 07:00 02/20/18 06:59 Vitamin B Complex/ Vit C/Folic Acid (Nephrovite) 1 tab DAILY ORAL 02/13/18 09:00 03/15/18 08:59 02/13/18 09:27 Assessment/Plan Assessment/Plan Abx: Levaquin 02/13- Assessment: Afebrile, no leukocytosis Dyspnea- 2ry to CHF exacerbation; no PNA -CXR: Cardiomegaly and mild interstitial opacification/edema. Linear opacity in the left midlung likely related to subsegmental atelectasis or scarring. Troponinemia- ?NSTEMI I vs II MACY ESRD on HD TThS L AVG and R chest permacath DM2 HLD CVA/ICH 2013 s/p craniotomy s/p L hip replacement 2016 CHF/ICM s/p PPM 2017 CAD/NSTEMI s/p stent PVD w/ ulcers on R dorman and gangrenous toe alf resident Plan: -D/c Levaquin #1 and monitor off abx -f/u cx -Monitor CBC/BMP, temperatures -cards, renal f/u -aspiration precautions Thank you for this consultation. Will continue to follow along with you. Discussed with Cora Carrillo M.D. Feb 13, 2018 14:33
--- NOTE | 2018-02-13 14:35 | Cardiology Report ---
APPROVED REPORT EXAM: Two-dimensional and M-mode echocardiogram with Doppler and color Doppler. INDICATION Chest Pain M-Mode DIMENSIONS IVSd1.2 (0.7-1.1cm)Left Atrium (MM)4.5 (1.6-4.0cm) LVDd4.5 (3.5-5.6cm)Aortic Root3.2 (2.0-3.7cm) PWd1.2 (0.7-1.1cm)Aortic Cusp Exc.1.2 (1.5-2.0cm) LVDs3.2 (2.5-4.0cm) PWs1.8 cm Normal left ventricular chamber size. Global left ventricular hypokinesis. Left ventricular ejection fraction estimated to be 40 %. Mild left ventricular hypertrophy. No evidence of pericardial effusion. Moderate left atrial enlargement. Mild right atrial enlargement. Right ventricular chamber size is within normal limits. Aortic valve calcification with decreased cusp excursion c/w aortic stenosis. Moderately thickened mitral valve leaflets with normal excursion. Heavy mitral annulus and aortic root calcification. Normal pulmonic valve structure. Normal tricuspid valve structure. IVC dilated at 2.2 cm with slight physiologic collapse suggestive of increased RA pressure. A color flow and spectral Doppler study was performed and revealed: Moderate aortic regurgitation. Peak aortic valve gradient of 45 mm Hg and a mean of 22 mmHg. Aortic valve area 0.9 cm2 calculated by continuity equation suggestive of moderate to severe aortic stenosis. Moderate mitral regurgitation. Mitral inflow velocities indicates possible pseudo normalization pattern implying moderately elevated left atrial pressure (Grade II ) Moderate to severe tricuspid regurgitation. Tricuspid systolic velocities suggests peak right ventricular systolic pressure of 56 mmHg, consistent with moderate to severe pulmonary hypertension. Moderate pulmonic regurgitation present.
--- NOTE | 2018-02-13 14:52 | Consultation ---
Consult Note Consult Note asked to [facility] for dialysis management Patient was brought in with complaints of chest pain Started several hours ago prior to arrival Patient is at a nursing facility She had dialysis earlier 02/12/18 Feels of the pain started several hours after that Midsternal 5 out of 10 Denies any shortness of breath or cough and eyes any back or flank pain Patient gets dialysis Sunday and Saturdays Denies any fevers or chills Allergies: Coded Allergies: OLMESARTAN (Verified Allergy, Mild, 01/18/14) SWOOLEN BODY HEPARIN (Verified Adverse Reaction, Severe, 01/18/14) TOLD SONS RE [facility] NOV THAT PATIENT CANNOT HAVE HEPARIN. Past Medical History: No History, Except For Hx Cardiac Problems: Yes - Heart disease; Heart failure; Cardiomyopathy; NSTEMI Hx Hypertension: Yes - Anemia Hx Diabetes: Yes Hx Gastrointestinal Problems: No - Dysphagia; ESRD; Dialysis Hx Dialysis: Yes - [facility] LEFT ARM PERMACATH RIGHT SIDE CHEST Hx Neurological Problems: Yes Hx Cerebrovascular Accident: Yes - [facility] NOV 2012 WITH SURGERY Hx Neurologic Surgery: Yes - 2013 . Assessment/Plan admitted with CP and high Trop I ESRD left arm fistula HTN s/p Craniotomy DM2 HypoAlbuminemia Pulm HTN h/o SDH Anemia CHF Diastolic Pacer TR Plan: Adjust BP meds Echo: Noted Phos binders- Gastric support Per orders HD in [place]- ARLET NINO Feb 13, 2018 14:52
--- NOTE | 2018-02-13 14:54 | Cardiology Report ---
APPROVED REPORT EKG Measurement Heart [id number] Normal sinus rhythm Possible Left atrial enlargement Left axis deviation Right bundle branch block Left ventricular hypertrophy Abnormal ECG
[2018-02-13] MEDS ORDERED: Sodium Chloride 500ML 500 ML IV ONE (16:15)
[2018-02-13] MEDS: Docusate 100mg cap ORAL SCH (17:39)
--- NOTE | 2018-02-13 19:40 | Cardiology Progress Note ---
Assessment/Plan Assessment/Plan chest pain nstemi likey demad related hypertension with hs of labile b[p cardiomyuopathy mild to mod cad by cath [facility] 2015 dm esrd on hd s/p ns bolus bp marginally better need to check bp other ext trop min elevated and on down [place] erwin reviewed hold all antihypertensive be toelrant of moderate elelvatecd bp and treat iff bp umm greater than 140 dc coreg is on clinidien which may affect heart rate as well ecotrin statin Objective Last 24 Hour Vital Signs Date Time Temp Pulse Resp B/P (MAP) Pulse Ox O2 Delivery O2 Flow Rate FiO2 02/13/18 17:22 48 90/49 02/13/18 17:02 47 94/42 96 Nasal Cannula 2.0 02/13/18 16:21 97.3 51 20 86/40 99 Room Air 97.3 02/13/18 16:00 52 02/13/18 12:00 97.2 68 20 102/49 99 Room Air 97.2 02/13/18 12:00 70 02/13/18 09:27 140/68 02/13/18 09:27 140/68 02/13/18 09:27 140/68 02/13/18 09:27 75 140/68 02/13/18 08:00 97.0 75 20 140/68 99 Room Air 97.0 02/13/18 08:00 79 02/13/18 04:00 80 02/13/18 04:00 97.2 75 16 133/74 99 97.2 02/13/18 02:30 97.5 81 18 138/77 98 Room Air 97.5 02/13/18 02:12 81 02/13/18 02:05 97.7 79 16 140/78 98 Room Air 97.7 02/13/18 01:45 97.7 79 16 140/78 98 Room Air 97.7 02/13/18 01:32 97.7 02/13/18 00:45 97.9 78 18 134/65 99 Room Air 97.9 02/12/18 23:46 83 18 Room Air 02/12/18 23:46 97.9 83 18 146/53 98 Room Air 97.9 02/12/18 23:23 88 16 141/76 98 Room Air Intake and Output 02/12/18 02/13/18 19:00 07:00 Intake Total 740 ml Balance 740 ml Intake Oral 240 ml IV Total 500 ml Laboratory Tests Test 02/12/18 23:59 02/13/18 11:20 White Blood Count 5.5 K/UL (4.8-10.8) 6.9 K/UL (4.8-10.8) Red Blood Count 4.11 M/UL (4.20-5.40) L 3.38 M/UL (4.20-5.40) L Hemoglobin 14.5 G/DL (12.0-16.0) 11.6 G/DL (12.0-16.0) L Hematocrit 42.1 % (37.0-47.0) 35.0 % (37.0-47.0) L Mean Corpuscular Volume 102 FL (80-99) H 104 FL (80-99) H Mean Corpuscular Hemoglobin 35.3 PG (27.0-31.0) H 34.3 PG (27.0-31.0) H Mean Corpuscular Hemoglobin Concent 34.5 G/DL (32.0-36.0) 33.1 G/DL (32.0-36.0) Red Cell Distribution Width 15.9 % (11.6-14.8) H 16.0 % (11.6-14.8) H Platelet Count 129 K/UL (150-450) L 104 K/UL (150-450) L Mean Platelet Volume 9.8 FL (6.5-10.1) 8.8 FL (6.5-10.1) Neutrophils (%) (Auto) 72.3 % (45.0-75.0) 74.7 % (45.0-75.0) Lymphocytes (%) (Auto) 17.5 % (20.0-45.0) L 11.6 % (20.0-45.0) L Monocytes (%) (Auto) 7.3 % (1.0-10.0) 9.3 % (1.0-10.0) Eosinophils (%) (Auto) 1.4 % (0.0-3.0) 3.1 % (0.0-3.0) H Basophils (%) (Auto) 1.6 % (0.0-2.0) 1.3 % (0.0-2.0) Sodium Level 130 MMOL/L (136-145) L 134 MMOL/L (136-145) L Potassium Level 4.4 MMOL/L (3.5-5.1) 3.2 MMOL/L (3.5-5.1) L Chloride Level 91 MMOL/L (98-107) L 93 MMOL/L (98-107) L Carbon Dioxide Level 30 MMOL/L (21-32) 32 MMOL/L (21-32) Anion Gap 9 mmol/L (5-15) 9 mmol/L (5-15) Blood Urea Nitrogen 17 mg/dL (7-18) 23 mg/dL (7-18) H Creatinine 3.2 MG/DL (0.55-1.30) H 3.9 MG/DL (0.55-1.30) H Estimat Glomerular Filtration Rate mL/min (>60) mL/min (>60) Glucose Level 173 MG/DL (74-106) H 161 MG/DL (74-106) H Calcium Level 7.8 MG/DL (8.5-10.1) L 7.1 MG/DL (8.5-10.1) L Total Bilirubin 1.4 MG/DL (0.2-1.0) H 0.9 MG/DL (0.2-1.0) Direct Bilirubin 0.2 MG/DL (0.0-0.3) Aspartate Amino Transf (AST/SGOT) 56 U/L (15-37) H 24 U/L (15-37) Alanine Aminotransferase (ALT/SGPT) 14 U/L (12-78) 13 U/L (12-78) Alkaline Phosphatase 135 U/L (46-116) H 113 U/L (46-116) Total Creatine Kinase 107 U/L (26-308) Creatine Kinase MB 1.9 NG/ML (0.0-3.6) Creatine Kinase MB Relative Index 1.7 Troponin I 1.550 ng/mL (0.000-0.056) 1.421 ng/mL (0.000-0.056) Pro-B-Type Natriuretic Peptide 5946 pg/mL (0-125) H Total Protein 9.6 G/DL (6.4-8.2) H 7.3 G/DL (6.4-8.2) Albumin 2.6 G/DL (3.4-5.0) L 2.1 G/DL (3.4-5.0) L Globulin 7.0 g/dL 5.2 g/dL Albumin/Globulin Ratio 0.4 (1.0-2.7) L 0.4 (1.0-2.7) L Lipase 219 U/L (73-393) Phosphorus Level 5.3 MG/DL (2.5-4.9) H Magnesium Level 2.1 MG/DL (1.8-2.4) UBALDO DALLAS Feb 13, 2018 19:40
[2018-02-13] MEDS: Atorvastatin 80mg tab ORAL SCH (21:20)
[2018-02-14] VITALS: BP 93/46
[2018-02-14 04:00] VITALS: BP 145/117
[2018-02-14] MEDS: NovoLOG Insulin Flexpen SUBQ SCH ×4 (06:46→20:44)
[2018-02-14 08:00] VITALS: BP 104/43
--- NOTE | 2018-02-14 08:01 | Consultation ---
DATE OF CONSULTATION: 02/13/2018 CARDIOLOGY CONSULTATION CONSULTING PHYSICIAN: Abhijit Simental M.D. REFERRING PHYSICIAN: Nas Garcia M.D. REASON FOR REFERRAL: Abnormal cardiac enzymes. HISTORY OF PRESENT ILLNESS: This is an elderly female, who is really a poor historian at the present time. The patient is a resident of convalescent facility and was transferred to the acute care hospital for midsternal and nonradiating sharp chest pains for six hours, apparently at the time of onset of cough. No shortness of breath. No pain on palpation. No bruising. No bleeding or deformity. No reduction of pain after two sprays of nitroglycerin and aspirin. The patient has multiple open wounds allover from unknown source. IV was attempted and placed and the patient was brought to the emergency room at [facility]. EKG showed right bundle-branch conduction with secondary T-wave abnormality at that time. The patient was brought to the emergency room here at [place], was seen by the emergency room physician, and indicated she had dialysis earlier in the morning on the day of admission and pain started several hours after that dialysis, 02/28. No fevers or chills documented. The patient is somewhat drowsy at the present time and not able to provide information. The [facility] data was reviewed as well as the convalescent facility notes being reviewed and it appears that in December, she was seen by Dr. Lokesh azevedo at [facility] and diagnosed with acute coronary syndrome with [id number] myocardial infarction, CAD, congestive heart failure, systolic and diastolic dysfunction, hypertension, hyperlipidemia, renal failure, on hemodialysis, aortic stenosis, diabetes mellitus, left bundle-branch hemiblock. In September 2017, she underwent an echocardiogram that showed severely suppressed LV systolic function with ejection fraction of 26%, severe diastolic dysfunction, global hypokinesis, RV hypokinesis, low-gradient moderate aortic stenosis, peak gradient of 16 and mean of 8 at that time, aortic valve area of 0.8. In 2014, she underwent cardiac catheterization that basically showed nonobstructive coronary artery disease, the left main 20% to 30% distal stenosis, 50% mid LAD stenosis, circumflex and mild calcifications of small vessel with RCA proximal 30% stenosis, 50% right PDA stenosis at that time. She has had several hospitalizations at [facility]. Subsequently, she was seen by Dr. Lokesh Cummings and cardiac evaluations have shown some troponins to be abnormal with levels as high as 9.39 and Gianfranco level of 1.17. The patient, however, has not had any further studies performed. PAST MEDICAL HISTORY: Her other medical problems, history of congestive heart failure, arthritis, diabetes mellitus, hypertension, stroke in 2014, and pulmonary hypertension. PAST SURGICAL HISTORY: PermCath placement, AV fistulas, craniotomies, temporary pacemaker implantation, kidney transplant, and joint replacements. SOCIAL HISTORY: She never smoked and never drank alcoholic beverages. She lives in a convalescent facility. REVIEW OF SYSTEMS: GASTROINTESTINAL: From the patient, really unable to obtain. Per nursing staff, there are some reports of vomiting today. No coffee-grounds and no bloody or black stool. GENITOURINARY: Negative. PULMONARY: She has not been really coughing significantly. CONSTITUTIONAL: No fever, chills, or night sweats. PHYSICAL EXAMINATION: GENERAL: Shows to be lethargic, arousable, elderly female, in no respiratory distress. VITAL SIGNS: Blood pressure has been anywhere between 86/40 to 102/49 with heart rate in the 50s. NECK: Supple. LUNGS: Few crackles at the bases. CARDIAC: Showed regular rhythm. Systolic ejection murmur noted. ABDOMEN: Soft and nontender. Positive bowel sounds. EXTREMITIES: There is no edema. NEUROLOGIC: She is awake, alert, and responsive. LABORATORY AND DIAGNOSTIC DATA: White count of 6.9, hemoglobin 11.6, and platelet count of 104,000. Sodium 134, potassium 3.2, chloride 92, bicarbonate 32, BUN of 22, creatinine 3.9, and glucose of 161. Troponin 1.5 at the time of admission late last night and 1.42 at 11 o'clock today. Chest x-ray performed in the emergency room last night shows limited study, cardiomegaly, interstitial opacification edema, subsegmental atelectasis versus scarring, osteopenia, compression deformities in the thoracic spine, and atherosclerotic changes. An echocardiogram has been performed showing ejection fraction of 40%, global hypokinesis, moderate aortic regurgitation, peak gradient of aortic valve of 45, mean of 22, aortic valve area of 0.9, moderate mitral regurgitation, and diastolic relaxation abnormality. The patient's electrocardiogram shows basically sinus rhythm with right bundle-branch conduction defect and in direct comparison with data from [facility], last EKG in December 2017 appears completely unchanged. ASSESSMENT AND PLAN: 1. Nes-NC-kugxffsvr myocardial infarction, possibly demand related. 2. Bwjl-mo-zgcurxyi coronary artery disease on cardiac catheterization in 2014. 3. End-stage renal disease, on hemodialysis. 4. Hypotension. 5. Aortic stenosis. 6. LV systolic dysfunction. 7. Congestive heart failure. 8. Peripheral vascular disease. Dr. Garcia, this patient's data was reviewed. As mentioned, [facility] data was reviewed. The patient's medications include Lipitor 80, Coreg 6.25 mg two times daily, clonidine 0.1 mg three times daily for hypertension, Plavix 75 mg, Benadryl, heparin subcutaneously, hydroxyzine, insulin, Imdur 30 mg, Lidoderm patch, lisinopril 10 mg, melatonin, Nephro-Luisa, diabetic medication, Renvela, Sensipar. For the time being because she is at times bradycardic, we will discontinue Coreg. All antihypertensive medications will be on hold. In light of her low blood pressure, the patient has received some fluids, normal saline hydration. She appears awake, responsive, and communicative and does not appear to be in any respiratory distress. Her cardiac enzyme abnormalities are mild and I am certain that the renal insufficiency is of questionable significance with a new assay. It is of note that she has had cardiac enzyme abnormalities even at higher level back in August 2017, but she has never had any cardiac workup subsequent to a cath in 2014. Her EKG appears to be unchanged. We will ask the staff to check blood pressure on other extremities to make sure it is not a single erroneous reading of hypotension. Her blood pressure readings at [facility] were in the 110 range on previous occasions on several of the progress notes I have noted through at [facility]. Therefore, this may not be significantly different. She apparently has advanced directives of Do Not Resuscitate and she is known to have apparently labile blood pressure. Abhijit Simental M.D. DR: FREDY JOB#: [id number] CC:
[2018-02-14] MEDS: Sensipar 30mg Tab ORAL SCH (08:29)
[2018-02-14] MEDS: Nephrovite tab (Rena-Vite) ORAL SCH (08:29)
[2018-02-14] MEDS: Docusate 100mg cap ORAL SCH ×3 (08:29→17:30)
[2018-02-14] MEDS: Benzonatate 100mg Perles ORAL SCH ×3 (08:29→17:30)
[2018-02-14] MEDS: Renvela 800mg Pkt ORAL SCH ×3 (08:30→17:30)
[2018-02-14] MEDS: Levemir Flexpen SUBQ SCH (08:46)
[2018-02-14] MEDS ORDERED: Lisinopril 10mg tab ORAL SCH (09:00)
--- NOTE | 2018-02-14 11:06 | Nephrology Progress Note ---
Assessment/Plan Problem List: (1) ESRD (end stage renal disease) on dialysis (2) Elevated troponin (3) Congestive heart failure (CHF) (4) Diabetes mellitus Assessment admitted with CP and high Trop I ESRD left arm fistula HTN s/p Craniotomy DM2 HypoAlbuminemia Pulm HTN h/o SDH Anemia CHF Diastolic Pacer TR Plan Plan: Adjust BP meds, fluid challenged yesterday Echo: Noted Phos binders- Gastric support Per orders HD today- Hold Cincalcet / Sensipar for low Ca Subjective ROS Limited/Unobtainable: No Objective Objective Last 24 Hour Vital Signs Date Time Temp Pulse Resp B/P (MAP) Pulse Ox O2 Delivery O2 Flow Rate FiO2 02/14/18 08:00 97.2 59 20 104/43 96 Room Air 97.2 02/14/18 06:50 60 18 Room Air 21 02/14/18 04:00 97.3 54 20 145/117 100 Room Air 97.3 02/14/18 04:00 53 02/14/18 00:00 60 02/14/18 00:00 97.3 60 21 93/46 90 Room Air 97.3 02/13/18 20:00 97.0 56 19 96/41 97 Room Air 97.0 02/13/18 20:00 55 02/13/18 19:50 55 18 Room Air 21 02/13/18 17:22 48 90/49 02/13/18 17:02 47 94/42 96 Nasal Cannula 2.0 02/13/18 16:21 97.3 51 20 86/40 99 Room Air 97.3 02/13/18 16:00 52 02/13/18 12:00 97.2 68 20 102/49 99 Room Air 97.2 02/13/18 12:00 70 Intake and Output 02/13/18 02/14/18 19:00 07:00 # Voids 1 Laboratory Tests 02/13/18 11:20: White Blood Count 6.9, Red Blood Count 3.38L, Hemoglobin 11.6L, Hematocrit 35.0L , Mean Corpuscular Volume 104H, Mean Corpuscular Hemoglobin 34.3H, Mean Corpuscular Hemoglobin Concent 33.1, Red Cell Distribution Width 16.0H, Platelet Count 104L, Mean Platelet Volume 8.8, Neutrophils (%) (Auto) 74.7, Lymphocytes (%) (Auto) 11.6L, Monocytes (%) (Auto) 9.3, Eosinophils (%) (Auto) 3.1H, Basophils (%) (Auto) 1.3, Sodium Level 134L, Potassium Level 3.2L, Chloride Level 93L, Carbon Dioxide Level 32, Anion Gap 9, Blood Urea Nitrogen 23H, Creatinine 3.9H, Estimat Glomerular Filtration Rate , Glucose Level 161H, Calcium Level 7.1L, Phosphorus Level 5.3H, Magnesium Level 2.1, Total Bilirubin 0.9, Aspartate Amino Transf (AST/SGOT) 24, Alanine Aminotransferase (ALT/SGPT) 13, Alkaline Phosphatase 113, Troponin I 1.421H, Total Protein 7.3, Albumin 2.1L , Globulin 5.2, Albumin/Globulin Ratio 0.4L, Cortisol AM Sample [Pending] 02/14/18 06:45: Pro-B-Type Natriuretic Peptide 5715H Height (Feet): 5 Height (Inches): 2.00 Weight (Pounds): 87 General Appearance: no apparent distress Cardiovascular: bradycardia Respiratory/Chest: decreased breath sounds Abdomen: soft Objective no change ARLET NINO Feb 14, 2018 11:06
[2018-02-14 12:00] VITALS: BP 96/49
--- NOTE | 2018-02-14 12:11 | Infectious Diseases Prog Note ---
Assessment/Plan Assessment/Plan Abx: Levaquin 02/13- Assessment: Afebrile, no leukocytosis Dyspnea- 2ry to CHF exacerbation; no PNA -CXR: Cardiomegaly and mild interstitial opacification/edema. Linear opacity in the left midlung likely related to subsegmental atelectasis or scarring. Troponinemia- ?NSTEMI I vs II MACY ESRD on HD TThS L AVG and R chest permacath DM2 HLD CVA/ICH 2013 s/p craniotomy s/p L hip replacement 2016 CHF/ICM s/p PPM 2016 CAD/NSTEMI s/p stent PVD w/ ulcers on R dorman and gangrenous toe skilled nursing resident Plan: -Continue to monitor off abx -02/13 SP Levaquin #1 -f/u cx -Monitor CBC/BMP, temperatures -cards, renal f/u -aspiration precautions Thank you for this consultation. Will continue to follow along with you. Discussed with RN. Subjective Allergies: Coded Allergies: OLMESARTAN (Verified Allergy, Mild, 01/18/14) SWOOLEN BODY DRONABINOL (Verified Allergy, Unknown, 02/13/18) HEPARIN (Verified Adverse Reaction, Severe, 01/18/14) TOLD SONS RE ICNov THAT PATIENT CANNOT HAVE HEPARIN. Subjective afebrile no leukocytosis off abx At Objective Vital Signs Last 24 Hour Vital Signs Date Time Temp Pulse Resp B/P (MAP) Pulse Ox O2 Delivery O2 Flow Rate FiO2 02/14/18 12:00 97.7 60 21 96/49 99 Room Air 97.7 02/14/18 08:00 97.2 59 20 104/43 96 Room Air 97.2 02/14/18 06:50 60 18 Room Air 21 02/14/18 04:00 97.3 54 20 145/117 100 Room Air 97.3 02/14/18 04:00 53 02/14/18 00:00 60 02/14/18 00:00 97.3 60 21 93/46 90 Room Air 97.3 02/13/18 20:00 97.0 56 19 96/41 97 Room Air 97.0 02/13/18 20:00 55 02/13/18 19:50 55 18 Room Air 21 02/13/18 17:22 48 90/49 02/13/18 17:02 47 94/42 96 Nasal Cannula 2.0 02/13/18 16:21 97.3 51 20 86/40 99 Room Air 97.3 02/13/18 16:00 52 Height (Feet): 5 Height (Inches): 2.00 Weight (Pounds): 87 Objective GENERAL: The patient is a thin-appearing female, in no apparent distress. HEENT: Eyes, pupils equal and responsive to light and accommodation. Extraocular movements are intact. NECK: Supple. No lymphadenopathy. CHEST: Lungs are clear to auscultation bilaterally without wheezes or rales. CARDIOVASCULAR: Regular rhythm and rate. S1, S2 normal without murmurs, rubs, or gallops. ABDOMEN: Soft, nontender, nondistended. Positive bowel sounds. No evidence of hepatosplenomegaly. Currently, no rebound or guarding noted. EXTREMITIES: Negative for clubbing, cyanosis, or edema. There are multiple ulcers over the right leg and right arm which are healing. Microbiology Date/Time Source Procedure Growth Status 02/13/18 02:30 Wrist Right Gram Stain Pending Resulted 02/13/18 02:30 Wound Culture - Preliminary Staphylococcus Aureus Resulted Laboratory Tests Test 02/14/18 06:45 C-Reactive Protein, Quantitative 5.1 mg/dL (0.00-0.90) H Pro-B-Type Natriuretic Peptide 5715 pg/mL (0-125) H Current Medications Medications (Trade) Dose Ordered Sig/Finn Route PRN Reason Start Time Stop Time Status Last Admin Dose Admin Albuterol/ Ipratropium (Albuterol/ Ipratropium) 3 ml EVERY 4 HOURS PRN HHN Shortness of Breath 02/13/18 12:45 02/18/18 12:44 Atorvastatin Calcium (Lipitor) 80 mg BEDTIME ORAL 02/13/18 21:00 03/15/18 20:59 02/13/18 21:20 Benzonatate (Tessalon Perles) 100 mg THREE TIMES A DAY ORAL 02/13/18 09:00 03/15/18 08:59 02/14/18 08:29 Bisacodyl (Dulcolax) 10 mg EVERY 6 HOURS PRN RECTAL Constipation 02/13/18 04:15 03/15/18 04:14 Clopidogrel Bisulfate (Plavix) 75 mg DAILY ORAL 02/13/18 09:00 03/15/18 08:59 02/14/18 08:29 Dextrose (Dextrose 50%) 25 ml STAT PRN IV Hypoglycemia 02/13/18 04:00 03/15/18 03:59 Dextrose (Dextrose 50%) 50 ml STAT PRN IV Hypoglycemia 02/13/18 04:00 03/15/18 03:59 Diphenhydramine HCl (Benadryl) 25 mg Q6H PRN ORAL Itching 02/13/18 04:15 03/15/18 04:14 Docusate Sodium (Colace) 100 mg THREE TIMES A DAY ORAL 02/13/18 18:00 03/15/18 17:59 02/14/18 08:29 Guaifenesin (Robitussin) 200 mg Q4H PRN ORAL For Cough 02/13/18 04:15 03/15/18 04:14 Hydroxyzine HCl (Atarax) 25 mg Q6HR PRN ORAL Itching 02/13/18 04:15 03/15/18 04:14 Insulin Aspart (NovoLOG) BEFORE MEALS AND HS SUBQ 02/13/18 06:30 03/15/18 06:29 02/14/18 06:46 Insulin Detemir (Levemir) 5 units DAILY SUBQ 02/13/18 09:00 03/15/18 08:59 02/14/18 08:46 Lidocaine (Lidoderm 5% PATCH) 1 patch EVERY 12 HOURS PRN TDERMAL For Pain 02/13/18 04:15 03/15/18 04:14 Non-Formulary Medication (Non-Formulary Med) 1 ea DAILY ORAL 02/13/18 09:00 03/15/18 08:59 UNV Pantoprazole (Protonix) 40 mg EVERY 12 HOURS ORAL 02/13/18 21:00 03/15/18 20:59 02/14/18 08:29 Promethazine HCl/ Codeine (Phenergan with Codeine) 5 ml Q4H PRN ORAL For Cough 02/13/18 12:45 03/15/18 12:44 Quetiapine Fumarate (SEROquel) 25 mg DAILYPRN PRN ORAL PRIOR TO HD SESSIONS ONLY 02/13/18 08:45 03/15/18 08:44 Sevelamer Carbonate (Renvela) 1,600 mg THREE TIMES A DAY ORAL 02/13/18 18:00 03/15/18 08:59 02/14/18 08:30 Tramadol HCl (Ultram) 25 mg Q6H PRN ORAL Moderate Pain (Pain Scale 4-6) 02/13/18 07:00 02/20/18 06:59 Vitamin B Complex/ Vit C/Folic Acid (Nephrovite) 1 tab DAILY ORAL 02/13/18 09:00 03/15/18 08:59 02/14/18 08:29 Cora Smith M.D. Feb 14, 2018 12:11
--- NOTE | 2018-02-14 12:33 | Pulmonology Progress Note ---
Assessment/Plan Problems: (1) ACS (acute coronary syndrome) (2) Acute bronchitis (3) Pulmonary edema (4) ESRD (end stage renal disease) on dialysis (5) Severe protein-calorie malnutrition (6) PVD (peripheral vascular disease) (7) Congestive heart failure (CHF) (8) Hypoxia Assessment/Plan respiratory treatment check sputum one episode of hypotension yesterday, responded to NS 500 cc f/u troponin f/u cardiology recommendations med/surg when ok with mica splitter Subjective ROS Limited/Unobtainable: No Constitutional: Reports: no symptoms HEENT: Repors: no symptoms Respiratory: Reports: no symptoms Allergies: Coded Allergies: OLMESARTAN (Verified Allergy, Mild, 01/18/14) SWOOLEN BODY DRONABINOL (Verified Allergy, Unknown, 02/13/18) HEPARIN (Verified Adverse Reaction, Severe, 01/18/14) TOLD SONS RE Nov THAT PATIENT CANNOT HAVE HEPARIN. Objective Last 24 Hour Vital Signs Date Time Temp Pulse Resp B/P (MAP) Pulse Ox O2 Delivery O2 Flow Rate FiO2 02/14/18 12:00 97.7 60 21 96/49 99 Room Air 97.7 02/14/18 08:00 97.2 59 20 104/43 96 Room Air 97.2 02/14/18 06:50 60 18 Room Air 21 02/14/18 04:00 97.3 54 20 145/117 100 Room Air 97.3 02/14/18 04:00 53 02/14/18 00:00 60 02/14/18 00:00 97.3 60 21 93/46 90 Room Air 97.3 02/13/18 20:00 97.0 56 19 96/41 97 Room Air 97.0 02/13/18 20:00 55 02/13/18 19:50 55 18 Room Air 21 02/13/18 17:22 48 90/49 02/13/18 17:02 47 94/42 96 Nasal Cannula 2.0 02/13/18 16:21 97.3 51 20 86/40 99 Room Air 97.3 02/13/18 16:00 52 Intake and Output 02/13/18 02/14/18 19:00 07:00 # Voids 1 General Appearance: WD/WN HEENT: normocephalic Respiratory/Chest: chest wall non-tender, lungs clear Cardiovascular: normal peripheral pulses, normal rate Abdomen: normal bowel sounds, soft, non tender Genitourinary: normal external genitalia Extremities: no clubbing Skin: no ulcers 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, no motor/sensory deficits Microbiology Date/Time Source Procedure Growth Status 02/13/18 02:30 Wrist Right Gram Stain Pending Resulted 02/13/18 02:30 Wound Culture - Preliminary Staphylococcus Aureus Resulted Laboratory Tests 02/14/18 06:45: C-Reactive Protein, Quantitative 5.1H, Pro-B-Type Natriuretic Peptide 5715H Current Medications Medications (Trade) Dose Ordered Sig/Finn Route PRN Reason Start Time Stop Time Status Last Admin Dose Admin Albuterol/ Ipratropium (Albuterol/ Ipratropium) 3 ml EVERY 4 HOURS PRN HHN Shortness of Breath 02/13/18 12:45 02/18/18 12:44 Atorvastatin Calcium (Lipitor) 80 mg BEDTIME ORAL 02/13/18 21:00 03/15/18 20:59 02/13/18 21:20 Benzonatate (Tessalon Perles) 100 mg THREE TIMES A DAY ORAL 02/13/18 09:00 03/15/18 08:59 02/14/18 12:15 Bisacodyl (Dulcolax) 10 mg EVERY 6 HOURS PRN RECTAL Constipation 02/13/18 04:15 03/15/18 04:14 Clopidogrel Bisulfate (Plavix) 75 mg DAILY ORAL 02/13/18 09:00 03/15/18 08:59 02/14/18 08:29 Dextrose (Dextrose 50%) 25 ml STAT PRN IV Hypoglycemia 02/13/18 04:00 03/15/18 03:59 Dextrose (Dextrose 50%) 50 ml STAT PRN IV Hypoglycemia 02/13/18 04:00 03/15/18 03:59 Diphenhydramine HCl (Benadryl) 25 mg Q6H PRN ORAL Itching 02/13/18 04:15 03/15/18 04:14 Docusate Sodium (Colace) 100 mg THREE TIMES A DAY ORAL 02/13/18 18:00 03/15/18 17:59 02/14/18 12:15 Guaifenesin (Robitussin) 200 mg Q4H PRN ORAL For Cough 02/13/18 04:15 03/15/18 04:14 Hydroxyzine HCl (Atarax) 25 mg Q6HR PRN ORAL Itching 02/13/18 04:15 03/15/18 04:14 Insulin Aspart (NovoLOG) BEFORE MEALS AND HS SUBQ 02/13/18 06:30 03/15/18 06:29 02/14/18 06:46 Insulin Detemir (Levemir) 5 units DAILY SUBQ 02/13/18 09:00 03/15/18 08:59 02/14/18 08:46 Lidocaine (Lidoderm 5% PATCH) 1 patch EVERY 12 HOURS PRN TDERMAL For Pain 02/13/18 04:15 03/15/18 04:14 Non-Formulary Medication (Non-Formulary Med) 1 ea DAILY ORAL 02/13/18 09:00 03/15/18 08:59 UNV Pantoprazole (Protonix) 40 mg EVERY 12 HOURS ORAL 02/13/18 21:00 03/15/18 20:59 02/14/18 08:29 Promethazine HCl/ Codeine (Phenergan with Codeine) 5 ml Q4H PRN ORAL For Cough 02/13/18 12:45 03/15/18 12:44 Quetiapine Fumarate (SEROquel) 25 mg DAILYPRN PRN ORAL PRIOR TO HD SESSIONS ONLY 02/13/18 08:45 03/15/18 08:44 Sevelamer Carbonate (Renvela) 1,600 mg THREE TIMES A DAY ORAL 02/13/18 18:00 03/15/18 08:59 02/14/18 12:15 Tramadol HCl (Ultram) 25 mg Q6H PRN ORAL Moderate Pain (Pain Scale 4-6) 02/13/18 07:00 02/20/18 06:59 Vitamin B Complex/ Vit C/Folic Acid (Nephrovite) 1 tab DAILY ORAL 02/13/18 09:00 03/15/18 08:59 02/14/18 08:29 Get Joyce MD Feb 14, 2018 12:33
[2018-02-14 13:00] VITALS: BP 92/41
--- NOTE | 2018-02-14 13:43 | Consultation ---
History of Present Illness General Date patient seen: Feb 13, 2018 Chief Complaint: Chest Pain Reason for Consultation: cough Present Illness HPI 77 yo F with x of ESRD on HD TThS L AVG and R chest PermCath, DM2, HLD, CVA 2013 s/p craniotomy,s/p L hip replacement 2016. In addition the pt has hx of depression and failure to thrive. the pt was admitted on seroquel and remeron. the pt was unable to provide hx and is confused, withdrawn and depressed. Allergies: Coded Allergies: OLMESARTAN (Verified Allergy, Mild, 01/18/14) SWOOLEN BODY DRONABINOL (Verified Allergy, Unknown, 02/13/18) HEPARIN (Verified Adverse Reaction, Severe, 01/18/14) DR TOLD SONS RE ICNov THAT PATIENT CANNOT HAVE HEPARIN. Medication History Scheduled Atorvastatin Calcium* (Lipitor*), 80 MG ORAL BEDTIME, (Reported) Benzonatate* (Benzonatate*), 100 MG ORAL THREE TIMES A DAY, (Reported) Calcium Carbonate (Calcium Carbonate), 200 MG PO EVERY 8 HOURS, (Reported) Carvedilol* (Carvedilol*), 6.25 MG ORAL EVERY 12 HOURS, (Reported) Cinacalcet* (Sensipar*), 30 MG ORAL DAILY, (Reported) Clonidine Hcl* (Catapres*), 0.1 MG ORAL BID, (Reported) Clopidogrel Bisulfate* (Plavix*), 75 MG ORAL DAILY, (Reported) Fluticasone Propionate (Fluticasone Propionate), 1 APPLIC TOPIC TWICE A DAY, ( Reported) Heparin Sod (Porcine) (Heparin Sodium*), 5,000 UNITS SUBQ EVERY 8 HOURS, ( Reported) Insulin Glargine (Lantus), 5 UNITS SUBQ DAILY, (Reported) Isosorbide Mononitrate (Isosorbide Mononitrate Er), 30 MG PO DAILY, (Reported) Lisinopril* (Lisinopril*), 10 MG ORAL DAILY, (Reported) Mirtazapine* (Remeron*), 15 MG ORAL BEDTIME, (Reported) Pioglitazone Hcl* (Actos*), 45 MG ORAL DAILY, (Reported) Quetiapine Fumarate (Seroquel), 25 MG ORAL 3XW, (Reported) Sevelamer Carbonate* (Renvela*), 800 MG ORAL THREE TIMES A DAY, (Reported) Vitamin B Cmplx/Vit C/Folic AC (Nephro-Luisa Tablet), 1 TAB ORAL DAILY, (Reported ) Scheduled PRN Bisacodyl (Dulcolax), 10 MG RC EVERY 6 HOURS PRN for Constipation, (Reported) Diphenhydramine Hcl* (Diphenhydramine Hcl*), 25 MG ORAL Q6H PRN for Itching, ( Reported) Guaifenesin* (Guaifenesin), 10 ML ORAL Q4H PRN for For Cough, (Reported) Hydroxyzine Hcl (Hydroxyzine Hcl), 25 MG PO Q6HR PRN for Itching, (Reported) Lidocaine (Lidoderm), 1 PATCH TOPIC EVERY 12 HOURS PRN for For Pain, (Reported) Tramadol Hcl* (Ultram*), 25 MG ORAL Q6H PRN for Moderate Pain (Pain Scale 4-6), (Reported) Discontinued Medications Hydralazine Hcl* (Hydralazine Hcl*), 100 MG ORAL EVERY 8 HOURS, (Reported) Discontinued Reason: MD discontinued med Melatonin (Melatonin), 3 MG ORAL BEDTIME PRN for Insomnia, (Reported) Discontinued Reason: MD discontinued med Nebivolol Hcl (Bystolic*), 20 MG ORAL DAILY, (Reported) Discontinued Reason: MD discontinued med Nifedipine Xl* (Nifedipine Xl*), 90 MG ORAL DAILY, (Reported) Discontinued Reason: MD discontinued med Sildenafil Citrate (Sildenafil), 25 MG ORAL TID, (Reported) Discontinued Reason: MD discontinued med Patient History Limited by: medical condition History Provided By: Patient, Medical Record, PMD Healthcare decision maker Resuscitation status Do Not Resuscitate Advanced Directive on File Yes Past Medical/Surgical History Past Medical/Surgical History: (1) Fluid overload (2) Diabetes mellitus (3) PVD (peripheral vascular disease) (4) Severe protein-calorie malnutrition (5) ESRD (end stage renal disease) on dialysis (6) Pulmonary edema (7) Acute bronchitis (8) Hypoxia (9) Congestive heart failure (CHF) (10) Elevated troponin (11) ACS (acute coronary syndrome) Review of Systems Psychiatric: Reports: prior hx, anxiety, depressed feelings Physical Exam General Appearance: WD/WN, no apparent distress, alert, confused Neurologic: depressed affect Last 24 Hour Vital Signs Date Time Temp Pulse Resp B/P (MAP) Pulse Ox O2 Delivery O2 Flow Rate FiO2 02/14/18 12:00 60 02/14/18 12:00 97.7 60 21 96/49 99 Room Air 97.7 02/14/18 08:00 59 02/14/18 08:00 97.2 59 20 104/43 96 Room Air 97.2 02/14/18 06:50 60 18 Room Air 21 02/14/18 04:00 97.3 54 20 145/117 100 Room Air 97.3 02/14/18 04:00 53 02/14/18 00:00 60 02/14/18 00:00 97.3 60 21 93/46 90 Room Air 97.3 02/13/18 20:00 97.0 56 19 96/41 97 Room Air 97.0 02/13/18 20:00 55 02/13/18 19:50 55 18 Room Air 21 02/13/18 17:22 48 90/49 02/13/18 17:02 47 94/42 96 Nasal Cannula 2.0 02/13/18 16:21 97.3 51 20 86/40 99 Room Air 97.3 02/13/18 16:00 52 Intake and Output 02/13/18 02/14/18 19:00 07:00 # Voids 1 Laboratory Tests Test 02/14/18 06:45 C-Reactive Protein, Quantitative 5.1 mg/dL (0.00-0.90) H Pro-B-Type Natriuretic Peptide 5715 pg/mL (0-125) H Height (Feet): 5 Height (Inches): 2.00 Weight (Pounds): 87 Medications Current Medications Medications (Trade) Dose Ordered Sig/Finn Route PRN Reason Start Time Stop Time Status Last Admin Dose Admin Albuterol/ Ipratropium (Albuterol/ Ipratropium) 3 ml EVERY 4 HOURS PRN HHN Shortness of Breath 02/13/18 12:45 02/18/18 12:44 Atorvastatin Calcium (Lipitor) 80 mg BEDTIME ORAL 02/13/18 21:00 03/15/18 20:59 02/13/18 21:20 Benzonatate (Tessalon Perles) 100 mg THREE TIMES A DAY ORAL 02/13/18 09:00 03/15/18 08:59 02/14/18 12:15 Bisacodyl (Dulcolax) 10 mg EVERY 6 HOURS PRN RECTAL Constipation 02/13/18 04:15 03/15/18 04:14 Clopidogrel Bisulfate (Plavix) 75 mg DAILY ORAL 02/13/18 09:00 03/15/18 08:59 02/14/18 08:29 Dextrose (Dextrose 50%) 25 ml STAT PRN IV Hypoglycemia 02/13/18 04:00 03/15/18 03:59 Dextrose (Dextrose 50%) 50 ml STAT PRN IV Hypoglycemia 02/13/18 04:00 03/15/18 03:59 Diphenhydramine HCl (Benadryl) 25 mg Q6H PRN ORAL Itching 02/13/18 04:15 03/15/18 04:14 Docusate Sodium (Colace) 100 mg THREE TIMES A DAY ORAL 02/13/18 18:00 03/15/18 17:59 02/14/18 12:15 Guaifenesin (Robitussin) 200 mg Q4H PRN ORAL For Cough 02/13/18 04:15 03/15/18 04:14 Hydroxyzine HCl (Atarax) 25 mg Q6HR PRN ORAL Itching 02/13/18 04:15 03/15/18 04:14 Insulin Aspart (NovoLOG) BEFORE MEALS AND HS SUBQ 02/13/18 06:30 03/15/18 06:29 02/14/18 06:46 Insulin Detemir (Levemir) 5 units DAILY SUBQ 02/13/18 09:00 03/15/18 08:59 02/14/18 08:46 Lidocaine (Lidoderm 5% PATCH) 1 patch EVERY 12 HOURS PRN TDERMAL For Pain 02/13/18 04:15 03/15/18 04:14 Non-Formulary Medication (Non-Formulary Med) 1 ea DAILY ORAL 02/13/18 09:00 03/15/18 08:59 UNV Pantoprazole (Protonix) 40 mg EVERY 12 HOURS ORAL 02/13/18 21:00 03/15/18 20:59 02/14/18 08:29 Promethazine HCl/ Codeine (Phenergan with Codeine) 5 ml Q4H PRN ORAL For Cough 02/13/18 12:45 03/15/18 12:44 Quetiapine Fumarate (SEROquel) 25 mg DAILYPRN PRN ORAL PRIOR TO HD SESSIONS ONLY 02/13/18 08:45 03/15/18 08:44 Sevelamer Carbonate (Renvela) 1,600 mg THREE TIMES A DAY ORAL 02/13/18 18:00 03/15/18 08:59 02/14/18 12:15 Tramadol HCl (Ultram) 25 mg Q6H PRN ORAL Moderate Pain (Pain Scale 4-6) 02/13/18 07:00 02/20/18 06:59 Vitamin B Complex/ Vit C/Folic Acid (Nephrovite) 1 tab DAILY ORAL 02/13/18 09:00 03/15/18 08:59 02/14/18 08:29 Assessment/Plan Status: stable Assessment/Plan MDD failure to thrive cognitive impairment -cont remeron -cont Cosmo Castro M.D. Feb 14, 2018 13:43
--- NOTE | 2018-02-14 14:09 | General Progress Note ---
Assessment/Plan Assessment/Plan MDD failure to thrive cognitive impairment -cont remeron -cont seroquel Subjective Date patient seen: Feb 14, 2018 Neurologic/Psychiatric: Reports: anxiety, depressed, emotional problems Allergies: Coded Allergies: OLMESARTAN (Verified Allergy, Mild, 01/18/14) SWOOLEN BODY DRONABINOL (Verified Allergy, Unknown, 02/13/18) HEPARIN (Verified Adverse Reaction, Severe, 01/18/14) DR TOLD SONS RE ICB NOV THAT PATIENT CANNOT HAVE HEPARIN. Subjective the pt was confused the family was in the room. the pt has been eating . no agitation Objective Last 24 Hour Vital Signs Date Time Temp Pulse Resp B/P (MAP) Pulse Ox O2 Delivery O2 Flow Rate FiO2 02/14/18 12:00 60 02/14/18 12:00 97.7 60 21 96/49 99 Room Air 97.7 02/14/18 08:00 59 02/14/18 08:00 97.2 59 20 104/43 96 Room Air 97.2 02/14/18 06:50 60 18 Room Air 21 02/14/18 04:00 97.3 54 20 145/117 100 Room Air 97.3 02/14/18 04:00 53 02/14/18 00:00 60 02/14/18 00:00 97.3 60 21 93/46 90 Room Air 97.3 02/13/18 20:00 97.0 56 19 96/41 97 Room Air 97.0 02/13/18 20:00 55 02/13/18 19:50 55 18 Room Air 21 02/13/18 17:22 48 90/49 02/13/18 17:02 47 94/42 96 Nasal Cannula 2.0 02/13/18 16:21 97.3 51 20 86/40 99 Room Air 97.3 02/13/18 16:00 52 Intake and Output 02/13/18 02/14/18 19:00 07:00 # Voids 1 Laboratory Tests 02/14/18 06:45: C-Reactive Protein, Quantitative 5.1H, Pro-B-Type Natriuretic Peptide 5715H Height (Feet): 5 Height (Inches): 2.00 Weight (Pounds): 87 General Appearance: WD/WN, no apparent distress, alert, confused Cosmo Smith M.D. Feb 14, 2018 14:09
--- NOTE | 2018-02-14 14:47 | Internal Med Progress Note ---
Subjective Physician Name Nas Garcia Attending Physician Nas Garcia MD Current Medications Medications (Trade) Dose Ordered Sig/Finn Route PRN Reason Start Time Stop Time Status Last Admin Dose Admin Albuterol/ Ipratropium (Albuterol/ Ipratropium) 3 ml EVERY 4 HOURS PRN HHN Shortness of Breath 02/13/18 12:45 02/18/18 12:44 Atorvastatin Calcium (Lipitor) 80 mg BEDTIME ORAL 02/13/18 21:00 03/15/18 20:59 02/13/18 21:20 Benzonatate (Tessalon Perles) 100 mg THREE TIMES A DAY ORAL 02/13/18 09:00 03/15/18 08:59 02/14/18 12:15 Bisacodyl (Dulcolax) 10 mg EVERY 6 HOURS PRN RECTAL Constipation 02/13/18 04:15 03/15/18 04:14 Clopidogrel Bisulfate (Plavix) 75 mg DAILY ORAL 02/13/18 09:00 03/15/18 08:59 02/14/18 08:29 Dextrose (Dextrose 50%) 25 ml STAT PRN IV Hypoglycemia 02/13/18 04:00 03/15/18 03:59 Dextrose (Dextrose 50%) 50 ml STAT PRN IV Hypoglycemia 02/13/18 04:00 03/15/18 03:59 Diphenhydramine HCl (Benadryl) 25 mg Q6H PRN ORAL Itching 02/13/18 04:15 03/15/18 04:14 Docusate Sodium (Colace) 100 mg THREE TIMES A DAY ORAL 02/13/18 18:00 03/15/18 17:59 02/14/18 12:15 Guaifenesin (Robitussin) 200 mg Q4H PRN ORAL For Cough 02/13/18 04:15 03/15/18 04:14 Hydroxyzine HCl (Atarax) 25 mg Q6HR PRN ORAL Itching 02/13/18 04:15 03/15/18 04:14 Insulin Aspart (NovoLOG) BEFORE MEALS AND HS SUBQ 02/13/18 06:30 03/15/18 06:29 02/14/18 06:46 Insulin Detemir (Levemir) 5 units DAILY SUBQ 02/13/18 09:00 5/25/18 08:59 02/14/18 08:46 Lidocaine (Lidoderm 5% PATCH) 1 patch EVERY 12 HOURS PRN TDERMAL For Pain 02/13/18 04:15 03/15/18 04:14 Pantoprazole (Protonix) 40 mg EVERY 12 HOURS ORAL 02/13/18 21:00 03/15/18 20:59 02/14/18 08:29 Promethazine HCl/ Codeine (Phenergan with Codeine) 5 ml Q4H PRN ORAL For Cough 02/13/18 12:45 03/15/18 12:44 Quetiapine Fumarate (SEROquel) 25 mg DAILYPRN PRN ORAL PRIOR TO HD SESSIONS ONLY 02/13/18 08:45 03/15/18 08:44 Sevelamer Carbonate (Renvela) 1,600 mg THREE TIMES A DAY ORAL 02/13/18 18:00 03/15/18 08:59 02/14/18 12:15 Tramadol HCl (Ultram) 25 mg Q6H PRN ORAL Moderate Pain (Pain Scale 4-6) 02/13/18 07:00 02/20/18 06:59 Vitamin B Complex/ Vit C/Folic Acid (Nephrovite) 1 tab DAILY ORAL 02/13/18 09:00 03/15/18 08:59 02/14/18 08:29 Allergies: Coded Allergies: OLMESARTAN (Verified Allergy, Mild, 01/18/14) SWOOLEN BODY DRONABINOL (Verified Allergy, Unknown, 02/13/18) HEPARIN (Verified Adverse Reaction, Severe, 01/18/14) TOLD SONS RE B NOV THAT PATIENT CANNOT HAVE HEPARIN. Subjective awake, alert, responsive, eating good, son at bedside, Dialysis at bedside Objective Last Vital Signs Date Time Temp Pulse Resp B/P (MAP) Pulse Ox O2 Delivery O2 Flow Rate FiO2 02/14/18 12:00 60 02/14/18 12:00 97.7 21 96/49 99 Room Air 97.7 02/14/18 06:50 21 02/13/18 17:02 2.0 Laboratory Tests Test 02/14/18 06:45 C-Reactive Protein, Quantitative 5.1 mg/dL (0.00-0.90) H Pro-B-Type Natriuretic Peptide 5715 pg/mL (0-125) H Microbiology Date/Time Source Procedure Growth Status 02/13/18 02:30 Wrist Right Gram Stain Pending Resulted 02/13/18 02:30 Wound Culture - Preliminary Staphylococcus Aureus Resulted Intake and Output 02/13/18 02/14/18 19:00 07:00 # Voids 1 Objective General: No acute distress, awake and alert HEENT: NCAT, sclera anicteric, PERRL, EOMI. Neck: Supple, no significant jugular venous distention, Lungs: Fair inspiratory effort, clear to auscultation bilaterally, no Wheeze or Rales. Heart: Regular rate and rhythm, normal S1/S2, no murmur Abdomen: soft, nontender, nondistended. Normoactive bowel sounds. Extremities: No Cyanosis , clubbing or edema. Muscle atrophy. left UE AVF. Neuro: A&O x 3, Able to move all extremities Skin: warm, no rashes, Right toe gangrene toe. Assessment/Plan Assessment/Plan Dyspnea- 2ry to CHF exacerbation Troponinemia- ?NSTEMI I / Demand ischemia ESRD on HD TThS DM2 HLD CVA/ICH 2013 s/p craniotomy s/p L hip replacement 2016 CHF/ICM s/p PPM 2016 CAD/NSTEMI s/p stent PVD w/ ulcers on R dorman and gangrenous toe Plan: Dialysis today Monitor labs and culture PT Mobility Full code Nas Albert MD Feb 14, 2018 14:47
[2018-02-14 16:36] VITALS: BP 136/62
--- NOTE | 2018-02-14 18:44 | Cardiology Progress Note ---
Assessment/Plan Assessment/Plan 1. [id number] myocardial infarction, possibly demand related. 2. Oepc-nr-jgotsair coronary artery disease on cardiac catheterization in 2015. 3. End-stage renal disease, on hemodialysis. 4. Hypotension. 5. Aortic stenosis. 6. LV systolic dysfunction. 7. Congestive heart failure. 8. Peripheral vascular disease. reepat trop in am son at bedside translating not have any cp had hd no sig fluid removed today on dialysis tele neg bp readin are better pt had had sever antihypertensive yest before my visit , bp now better will observe cortisol ordered already dnr per son Subjective Cardiovascular: Denies: chest pain, lightheadedness Respiratory: Reports: shortness of breath - midl Objective Last 24 Hour Vital Signs Date Time Temp Pulse Resp B/P (MAP) Pulse Ox O2 Delivery O2 Flow Rate FiO2 02/14/18 16:49 Room Air 02/14/18 16:48 Room Air 2.0 21 02/14/18 16:48 Room Air 2.0 21 02/14/18 16:36 97.3 72 20 136/62 Room Air 97.3 02/14/18 16:00 64 02/14/18 13:00 Room Air 02/14/18 13:00 97.5 58 20 92/41 Room Air 97.5 02/14/18 12:00 60 02/14/18 12:00 97.7 60 21 96/49 99 Room Air 97.7 02/14/18 08:00 59 02/14/18 08:00 97.2 59 20 104/43 96 Room Air 97.2 02/14/18 06:50 60 18 Room Air 21 02/14/18 04:00 97.3 54 20 145/117 100 Room Air 97.3 02/14/18 04:00 53 02/14/18 00:00 60 02/14/18 00:00 97.3 60 21 93/46 90 Room Air 97.3 02/13/18 20:00 97.0 56 19 96/41 97 Room Air 97.0 02/13/18 20:00 55 02/13/18 19:50 55 18 Room Air 21 General Appearance: no apparent distress, alert Neck: supple Cardiovascular: normal rate Respiratory/Chest: lungs clear Abdomen: normal bowel sounds, non tender, soft Extremities: no swelling Intake and Output 02/13/18 02/14/18 19:00 07:00 # Voids 1 Laboratory Tests Test 02/14/18 06:45 C-Reactive Protein, Quantitative 5.1 mg/dL (0.00-0.90) H Pro-B-Type Natriuretic Peptide 5715 pg/mL (0-125) H Microbiology Date/Time Source Procedure Growth Status 02/13/18 02:30 Wrist Right Gram Stain Pending Resulted 02/13/18 02:30 Wound Culture - Preliminary Staphylococcus Aureus Resulted UBALDO DALLAS Feb 14, 2018 18:44
[2018-02-14] MEDS: Atorvastatin 80mg tab ORAL SCH (20:56)
[2018-02-15] VITALS: BP 135/65
[2018-02-15] MEDS: traMADol 50mg tab ORAL PRN (01:33)
[2018-02-15] MEDS: NovoLOG Insulin Flexpen SUBQ SCH ×4 (06:30→21:00)
[2018-02-15 08:00] VITALS: BP 110/49
[2018-02-15] MEDS: Nephrovite tab (Rena-Vite) ORAL SCH (08:35)
[2018-02-15] MEDS: Docusate 100mg cap ORAL SCH ×3 (08:35→17:07)
[2018-02-15] MEDS: Renvela 800mg Pkt ORAL SCH ×4 (08:36→17:32)
[2018-02-15] MEDS: Benzonatate 100mg Perles ORAL SCH ×3 (08:36→17:07)
[2018-02-15] MEDS: Levemir Flexpen SUBQ SCH (09:05)
--- NOTE | 2018-02-15 10:14 | Nephrology Progress Note ---
Assessment/Plan Problem List: (1) ESRD (end stage renal disease) on dialysis (2) Elevated troponin (3) Congestive heart failure (CHF) (4) Diabetes mellitus Assessment admitted with CP and high Trop I ESRD left arm fistula HTN s/p Craniotomy DM2 HypoAlbuminemia Pulm HTN h/o SDH Anemia CHF Diastolic Pacer TR Plan Plan: today's lab pending Adjust BP meds, fluid challenged Echo: Noted Phos binders- Gastric support Per orders HD 02/14 done Hold Cincalcet / Sensipar for low Ca Subjective ROS Limited/Unobtainable: No Constitutional: Reports: malaise Objective Objective Last 24 Hour Vital Signs Date Time Temp Pulse Resp B/P (MAP) Pulse Ox O2 Delivery O2 Flow Rate FiO2 02/15/18 08:00 98.2 71 20 110/49 97 Room Air 98.2 02/15/18 00:00 88 02/15/18 00:00 98.8 79 20 135/65 96 Room Air 98.8 02/14/18 21:21 58 20 Room Air 21 02/14/18 20:00 78 02/14/18 16:49 Room Air 02/14/18 16:48 Room Air 2.0 21 02/14/18 16:48 Room Air 2.0 21 02/14/18 16:36 97.3 72 20 136/62 Room Air 97.3 02/14/18 16:00 64 02/14/18 13:00 Room Air 02/14/18 13:00 97.5 58 20 92/41 Room Air 97.5 02/14/18 12:00 60 02/14/18 12:00 97.7 60 21 96/49 99 Room Air 97.7 Intake and Output 02/14/18 02/15/18 19:00 07:00 Intake Total 150 ml Balance 150 ml Intake Oral 150 ml # Voids 1 Height (Feet): 5 Height (Inches): 2.00 Weight (Pounds): 87 General Appearance: no apparent distress Objective no change ARLET NINO Feb 15, 2018 10:14
[2018-02-15 11:30] LABS: BASOPHILS % (AUTO) 0.8 % (0.0-2.0); EOSINOPHILS % (AUTO) 0.7 % (0.0-3.0); HEMATOCRIT 37.9 % (37.0-47.0); HEMOGLOBIN 12.2 G/DL (12.0-16.0); LYMPHOCYTES % (AUTO) 10.5 % (20.0-45.0); MEAN CORPUSCULAR VOLUME 106 FL (80-99); MONOCYTES % (AUTO) 6.8 % (1.0-10.0); NEUTROPHILS % (AUTO) 81.2 % (45.0-75.0); PLATELET COUNT 107 K/UL (150-450); RED BLOOD COUNT 3.59 M/UL (4.20-5.40); WHITE BLOOD COUNT 6.6 K/UL (4.8-10.8)
[2018-02-15 11:45] LABS: ANION GAP 2 mmol/L (5-15); BLOOD UREA NITROGEN 29 mg/dL (7-18); CALCIUM 7.4 MG/DL (8.5-10.1); CARBON DIOXIDE 38 MMOL/L (21-32); CHLORIDE 96 MMOL/L (98-107); CREATININE 3.6 MG/DL (0.55-1.30); POTASSIUM 3.5 MMOL/L (3.5-5.1); SODIUM 136 MMOL/L (136-145)
--- NOTE | 2018-02-15 11:51 | Pulmonology Progress Note ---
Assessment/Plan Problems: (1) Non-ST elevation (NSTEMI) myocardial infarction (2) DNR (do not resuscitate) (3) Acute bronchitis (4) Pulmonary edema (5) ESRD (end stage renal disease) on dialysis (6) Severe protein-calorie malnutrition (7) PVD (peripheral vascular disease) (8) Congestive heart failure (CHF) (9) Hypoxia Assessment/Plan respiratory treatment check sputum one episode of hypotension yesterday, responded to NS 500 cc f/u troponin this morning VRE positive recutm wrist has MRSA, start vancomycin f/u cardiology recommendations med/surg when ok with family worker Subjective ROS Limited/Unobtainable: No Interval Events: doing better, BP better Allergies: Coded Allergies: OLMESARTAN (Verified Allergy, Mild, 01/18/14) SWOOLEN BODY DRONABINOL (Verified Allergy, Unknown, 02/13/18) HEPARIN (Verified Adverse Reaction, Severe, 01/18/14) TOLD SONS RE ICB NOV THAT PATIENT CANNOT HAVE HEPARIN. Objective Last 24 Hour Vital Signs Date Time Temp Pulse Resp B/P (MAP) Pulse Ox O2 Delivery O2 Flow Rate FiO2 02/15/18 08:00 98.2 71 20 110/49 97 Room Air 98.2 02/15/18 00:00 88 02/15/18 00:00 98.8 79 20 135/65 96 Room Air 98.8 02/14/18 21:21 58 20 Room Air 21 02/14/18 20:00 78 02/14/18 16:49 Room Air 02/14/18 16:48 Room Air 2.0 21 02/14/18 16:48 Room Air 2.0 21 02/14/18 16:36 97.3 72 20 136/62 Room Air 97.3 02/14/18 16:00 64 02/14/18 13:00 Room Air 02/14/18 13:00 97.5 58 20 92/41 Room Air 97.5 02/14/18 12:00 60 02/14/18 12:00 97.7 60 21 96/49 99 Room Air 97.7 Intake and Output 02/14/18 02/15/18 19:00 07:00 Intake Total 150 ml Balance 150 ml Intake Oral 150 ml # Voids 1 HEENT: normocephalic, atraumatic Respiratory/Chest: chest wall non-tender, lungs clear Breasts: no masses Cardiovascular: normal peripheral pulses, normal rate Abdomen: normal bowel sounds, soft, non tender Genitourinary: normal external genitalia Extremities: no cyanosis Skin: lesions - right wrist Neurologic/Psychiatric: communications professor II-XII grossly normal Microbiology Date/Time Source Procedure Growth Status 02/13/18 01:00 Nasal Nares MRSA Culture - Final NO METHICILLIN RESISTANT STAPH AUREUS... Complete 02/13/18 02:30 Wrist Right Gram Stain - Final Resulted 02/13/18 02:30 Wound Culture - Preliminary Staphylococcus Aureus Resulted 02/13/18 01:00 Rectum VRE Culture - Final Enterococcus Faecalis - Vre Complete Laboratory Tests 02/15/18 11:10: White Blood Count 6.6, Red Blood Count 3.59L, Hemoglobin 12.2, Hematocrit 37.9, Mean Corpuscular Volume 106H, Mean Corpuscular Hemoglobin 33.9H, Mean Corpuscular Hemoglobin Concent 32.1, Red Cell Distribution Width 16.0H, Platelet Count 107L, Mean Platelet Volume 8.5, Neutrophils (%) (Auto) 81.2H, Lymphocytes (%) (Auto) 10.5L, Monocytes (%) (Auto) 6.8, Eosinophils (%) (Auto) 0.7, Basophils (%) (Auto) 0.8, Sodium Level 136, Potassium Level 3.5, Chloride Level 96L, Carbon Dioxide Level 38H, Anion Gap 2L, Blood Urea Nitrogen 29H, Creatinine 3.6H, Estimat Glomerular Filtration Rate , Glucose Level 170H, Calcium Level 7.4L, Phosphorus Level [Pending], Magnesium Level [Pending], Total Bilirubin [Pending], Aspartate Amino Transf (AST/SGOT) [Pending], Alanine Aminotransferase (ALT/SGPT) [Pending], Alkaline Phosphatase [Pending], Troponin I [Pending], Pro-B-Type Natriuretic Peptide [Pending], Total Protein [Pending], Albumin [Pending], Globulin [Pending] Current Medications Medications (Trade) Dose Ordered Sig/Finn Route PRN Reason Start Time Stop Time Status Last Admin Dose Admin Albuterol/ Ipratropium (Albuterol/ Ipratropium) 3 ml EVERY 4 HOURS PRN HHN Shortness of Breath 02/13/18 12:45 02/18/18 12:44 Atorvastatin Calcium (Lipitor) 80 mg BEDTIME ORAL 02/13/18 21:00 03/15/18 20:59 02/13/18 21:20 Benzonatate (Tessalon Perles) 100 mg THREE TIMES A DAY ORAL 02/13/18 09:00 03/15/18 08:59 02/15/18 08:36 Bisacodyl (Dulcolax) 10 mg EVERY 6 HOURS PRN RECTAL Constipation 02/13/18 04:15 03/15/18 04:14 Clopidogrel Bisulfate (Plavix) 75 mg DAILY ORAL 02/13/18 09:00 03/15/18 08:59 02/15/18 08:35 Dextrose (Dextrose 50%) 25 ml STAT PRN IV Hypoglycemia 02/13/18 04:00 03/15/18 03:59 Dextrose (Dextrose 50%) 50 ml STAT PRN IV Hypoglycemia 02/13/18 04:00 03/15/18 03:59 Diphenhydramine HCl (Benadryl) 25 mg Q6H PRN ORAL Itching 02/13/18 04:15 03/15/18 04:14 Docusate Sodium (Colace) 100 mg THREE TIMES A DAY ORAL 02/13/18 18:00 03/15/18 17:59 02/15/18 08:35 Guaifenesin (Robitussin) 200 mg Q4H PRN ORAL For Cough 02/13/18 04:15 03/15/18 04:14 Hydroxyzine HCl (Atarax) 25 mg Q6HR PRN ORAL Itching 02/13/18 04:15 03/15/18 04:14 Insulin Aspart (NovoLOG) BEFORE MEALS AND HS SUBQ 02/13/18 06:30 03/15/18 06:29 02/14/18 06:46 Insulin Detemir (Levemir) 5 units DAILY SUBQ 02/13/18 09:00 03/15/18 08:59 02/15/18 09:05 Lidocaine (Lidoderm 5% PATCH) 1 patch EVERY 12 HOURS PRN TDERMAL For Pain 02/13/18 04:15 03/15/18 04:14 Pantoprazole (Protonix) 40 mg EVERY 12 HOURS ORAL 02/13/18 21:00 03/15/18 20:59 02/15/18 08:35 Promethazine HCl/ Codeine (Phenergan with Codeine) 5 ml Q4H PRN ORAL For Cough 02/13/18 12:45 03/15/18 12:44 Quetiapine Fumarate (SEROquel) 25 mg DAILYPRN PRN ORAL PRIOR TO HD SESSIONS ONLY 02/13/18 08:45 03/15/18 08:44 Sevelamer Carbonate (Renvela) 1,600 mg THREE TIMES A DAY ORAL 02/13/18 18:00 03/15/18 08:59 02/15/18 08:36 Tramadol HCl (Ultram) 25 mg Q6H PRN ORAL Moderate Pain (Pain Scale 4-6) 02/13/18 07:00 02/20/18 06:59 02/15/18 01:33 Vitamin B Complex/ Vit C/Folic Acid (Nephrovite) 1 tab DAILY ORAL 02/13/18 09:00 03/15/18 08:59 02/15/18 08:35 Get Joyce MD Feb 15, 2018 11:51
[2018-02-15 11:55] LABS: ALANINE AMINOTRANSFERASE 15 U/L (12-78); ALBUMIN 2.5 G/DL (3.4-5.0); ALBUMIN/GLOBULIN RATIO 4.2 (1.0-2.7); ALKALINE PHOSPHATASE 108 U/L (46-116); ASPARTATE AMINO TRANSFERASE 40 U/L (15-37); BILIRUBIN,TOTAL 1.1 MG/DL (0.2-1.0); PHOSPHORUS 2.9 MG/DL (2.5-4.9)
[2018-02-15 11:56] LABS: BILIRUBIN,DIRECT 0.5 MG/DL (0.0-0.3)
[2018-02-15] MEDS ORDERED: Vancomycin 750mg/NS 250ml IVPB ONE (13:00)
--- NOTE | 2018-02-15 15:03 | Internal Med Progress Note ---
Subjective Physician Name Nas Garcia Attending Physician Nas Garcia MD Current Medications Medications (Trade) Dose Ordered Sig/Finn Route PRN Reason Start Time Stop Time Status Last Admin Dose Admin Albuterol/ Ipratropium (Albuterol/ Ipratropium) 3 ml EVERY 4 HOURS PRN HHN Shortness of Breath 02/13/18 12:45 02/18/18 12:44 Atorvastatin Calcium (Lipitor) 80 mg BEDTIME ORAL 02/13/18 21:00 03/15/18 20:59 02/13/18 21:20 Benzonatate (Tessalon Perles) 100 mg THREE TIMES A DAY ORAL 02/13/18 09:00 03/15/18 08:59 02/15/18 13:24 Bisacodyl (Dulcolax) 10 mg EVERY 6 HOURS PRN RECTAL Constipation 02/13/18 04:15 03/15/18 04:14 Clopidogrel Bisulfate (Plavix) 75 mg DAILY ORAL 02/13/18 09:00 03/15/18 08:59 02/15/18 08:35 Dextrose (Dextrose 50%) 25 ml STAT PRN IV Hypoglycemia 02/13/18 04:00 03/15/18 03:59 Dextrose (Dextrose 50%) 50 ml STAT PRN IV Hypoglycemia 02/13/18 04:00 03/15/18 03:59 Diphenhydramine HCl (Benadryl) 25 mg Q6H PRN ORAL Itching 02/13/18 04:15 03/15/18 04:14 Docusate Sodium (Colace) 100 mg THREE TIMES A DAY ORAL 02/13/18 18:00 03/15/18 17:59 02/15/18 13:24 Guaifenesin (Robitussin) 200 mg Q4H PRN ORAL For Cough 02/13/18 04:15 03/15/18 04:14 Hydroxyzine HCl (Atarax) 25 mg Q6HR PRN ORAL Itching 02/13/18 04:15 03/15/18 04:14 Insulin Aspart (NovoLOG) BEFORE MEALS AND HS SUBQ 02/13/18 06:30 03/15/18 06:29 02/14/18 06:46 Insulin Detemir (Levemir) 5 units DAILY SUBQ 02/13/18 09:00 5/25/18 08:59 02/15/18 09:05 Lidocaine (Lidoderm 5% PATCH) 1 patch EVERY 12 HOURS PRN TDERMAL For Pain 02/13/18 04:15 03/15/18 04:14 Pantoprazole (Protonix) 40 mg EVERY 12 HOURS ORAL 02/13/18 21:00 03/15/18 20:59 02/15/18 08:35 Promethazine HCl/ Codeine (Phenergan with Codeine) 5 ml Q4H PRN ORAL For Cough 02/13/18 12:45 03/15/18 12:44 Quetiapine Fumarate (SEROquel) 25 mg DAILYPRN PRN ORAL PRIOR TO HD SESSIONS ONLY 02/13/18 08:45 03/15/18 08:44 Sevelamer Carbonate (Renvela) 1,600 mg THREE TIMES A DAY ORAL 02/13/18 18:00 03/15/18 08:59 02/15/18 13:24 Tramadol HCl (Ultram) 25 mg Q6H PRN ORAL Moderate Pain (Pain Scale 4-6) 02/13/18 07:00 02/20/18 06:59 02/15/18 01:33 Vancomycin HCl (Vanco rx to dose) 1 ea DAILY PRN MISC Per rx protocol 02/15/18 12:00 03/17/18 11:59 Vitamin B Complex/ Vit C/Folic Acid (Nephrovite) 1 tab DAILY ORAL 02/13/18 09:00 03/15/18 08:59 02/15/18 08:35 Allergies: Coded Allergies: OLMESARTAN (Verified Allergy, Mild, 01/18/14) SWOOLEN BODY DRONABINOL (Verified Allergy, Unknown, 02/13/18) HEPARIN (Verified Adverse Reaction, Severe, 01/18/14) TOLD SONS RE ICB NOV THAT PATIENT CANNOT HAVE HEPARIN. Subjective awake, alert, responsive, NAD, feeling weak, Troponin 3.539 Objective Last Vital Signs Date Time Temp Pulse Resp B/P (MAP) Pulse Ox O2 Delivery O2 Flow Rate FiO2 02/15/18 12:00 68 02/15/18 08:28 18 Room Air 02/15/18 08:00 98.2 110/49 97 98.2 02/14/18 21:21 21 02/14/18 16:48 2.0 Laboratory Tests Test 02/15/18 11:10 White Blood Count 6.6 K/UL (4.8-10.8) Red Blood Count 3.59 M/UL (4.20-5.40) L Hemoglobin 12.2 G/DL (12.0-16.0) Hematocrit 37.9 % (37.0-47.0) Mean Corpuscular Volume 106 FL (80-99) H Mean Corpuscular Hemoglobin 33.9 PG (27.0-31.0) H Mean Corpuscular Hemoglobin Concent 32.1 G/DL (32.0-36.0) Red Cell Distribution Width 16.0 % (11.6-14.8) H Platelet Count 107 K/UL (150-450) L Mean Platelet Volume 8.5 FL (6.5-10.1) Neutrophils (%) (Auto) 81.2 % (45.0-75.0) H Lymphocytes (%) (Auto) 10.5 % (20.0-45.0) L Monocytes (%) (Auto) 6.8 % (1.0-10.0) Eosinophils (%) (Auto) 0.7 % (0.0-3.0) Basophils (%) (Auto) 0.8 % (0.0-2.0) Sodium Level 136 MMOL/L (136-145) Potassium Level 3.5 MMOL/L (3.5-5.1) Chloride Level 96 MMOL/L (98-107) L Carbon Dioxide Level 38 MMOL/L (21-32) H Anion Gap 2 mmol/L (5-15) L Blood Urea Nitrogen 29 mg/dL (7-18) H Creatinine 3.6 MG/DL (0.55-1.30) H Estimat Glomerular Filtration Rate mL/min (>60) Glucose Level 170 MG/DL (74-106) H Calcium Level 7.4 MG/DL (8.5-10.1) L Phosphorus Level 2.9 MG/DL (2.5-4.9) Magnesium Level 2.2 MG/DL (1.8-2.4) Total Bilirubin 1.1 MG/DL (0.2-1.0) H Direct Bilirubin 0.5 MG/DL (0.0-0.3) H Aspartate Amino Transf (AST/SGOT) 40 U/L (15-37) H Alanine Aminotransferase (ALT/SGPT) 15 U/L (12-78) Alkaline Phosphatase 108 U/L (46-116) Troponin I 3.539 ng/mL (0.000-0.056) Pro-B-Type Natriuretic Peptide 5804 pg/mL (0-125) H Total Protein 3.1 G/DL (6.4-8.2) L Albumin 2.5 G/DL (3.4-5.0) L Globulin 0.6 g/dL Albumin/Globulin Ratio 4.2 (1.0-2.7) H Microbiology Date/Time Source Procedure Growth Status 02/13/18 01:00 Nasal Nares MRSA Culture - Final NO METHICILLIN RESISTANT STAPH AUREUS... Complete 02/13/18 02:30 Wrist Right Gram Stain - Final Resulted 02/13/18 02:30 Wound Culture - Preliminary Staphylococcus Aureus Resulted 02/13/18 01:00 Rectum VRE Culture - Final Enterococcus Faecalis - Vre Complete Intake and Output 02/14/18 02/15/18 19:00 07:00 Intake Total 150 ml Balance 150 ml Intake Oral 150 ml # Voids 1 Objective General: No acute distress, awake and alert HEENT: NCAT, sclera anicteric, PERRL, EOMI. Neck: Supple, no significant jugular venous distention, Lungs: Fair inspiratory effort, clear to auscultation bilaterally, no Wheeze or Rales. Heart: Regular rate and rhythm, normal S1/S2, no murmur Abdomen: soft, nontender, nondistended. Normoactive bowel sounds. Extremities: No Cyanosis , clubbing, + 1 edema. Muscle atrophy. left UE AVF. Neuro: A&O x 3, Able to move all extremities Skin: warm, no rashes, Right toe gangrene toe. Assessment/Plan Assessment/Plan Dyspnea- 2ry to CHF exacerbation Troponinemia- NSTEMI ESRD on HD TThS DM2 HLD CVA/ICH 2013 s/p craniotomy s/p L hip replacement 2016 CHF/ICM s/p PPM 2016 CAD/NSTEMI s/p stent Severe PAD / PVD w/ ulcers on R dorman and gangrenous toe Plan: Dialysis in AM Monitor labs and culture PT Mobility Full code SCD Abx: Vanco Nas Heredia MD Feb 15, 2018 15:03
--- NOTE | 2018-02-15 15:13 | General Progress Note ---
Assessment/Plan Status: stable, progressing Assessment/Plan MDD failure to thrive cognitive impairment -cont remeron -cont seroquel Subjective Date patient seen: Feb 15, 2018 Allergies: Coded Allergies: OLMESARTAN (Verified Allergy, Mild, 01/18/14) SWOOLEN BODY DRONABINOL (Verified Allergy, Unknown, 02/13/18) HEPARIN (Verified Adverse Reaction, Severe, 01/18/14) DR TOLD SONS RE ICB NOV THAT PATIENT CANNOT HAVE HEPARIN. Subjective the pt was confused Objective Last 24 Hour Vital Signs Date Time Temp Pulse Resp B/P (MAP) Pulse Ox O2 Delivery O2 Flow Rate FiO2 02/15/18 12:00 68 02/15/18 08:28 73 18 Room Air 02/15/18 08:00 98.2 71 20 110/49 97 Room Air 98.2 02/15/18 08:00 71 02/15/18 00:00 88 02/15/18 00:00 98.8 79 20 135/65 96 Room Air 98.8 02/14/18 21:21 58 20 Room Air 21 02/14/18 20:00 78 02/14/18 16:49 Room Air 02/14/18 16:48 Room Air 2.0 21 02/14/18 16:48 Room Air 2.0 21 02/14/18 16:36 97.3 72 20 136/62 Room Air 97.3 02/14/18 16:00 64 Intake and Output 02/14/18 02/15/18 19:00 07:00 Intake Total 150 ml Balance 150 ml Intake Oral 150 ml # Voids 1 Laboratory Tests 02/15/18 11:10: White Blood Count 6.6, Red Blood Count 3.59L, Hemoglobin 12.2, Hematocrit 37.9, Mean Corpuscular Volume 106H, Mean Corpuscular Hemoglobin 33.9H, Mean Corpuscular Hemoglobin Concent 32.1, Red Cell Distribution Width 16.0H, Platelet Count 107L, Mean Platelet Volume 8.5, Neutrophils (%) (Auto) 81.2H, Lymphocytes (%) (Auto) 10.5L, Monocytes (%) (Auto) 6.8, Eosinophils (%) (Auto) 0.7, Basophils (%) (Auto) 0.8, Sodium Level 136, Potassium Level 3.5, Chloride Level 96L, Carbon Dioxide Level 38H, Anion Gap 2L, Blood Urea Nitrogen 29H, Creatinine 3.6H, Estimat Glomerular Filtration Rate , Glucose Level 170H, Calcium Level 7.4L, Phosphorus Level 2.9, Magnesium Level 2.2, Total Bilirubin 1.1H, Direct Bilirubin 0.5H, Aspartate Amino Transf (AST/SGOT) 40H, Alanine Aminotransferase (ALT/SGPT) 15, Alkaline Phosphatase 108, Troponin I 3.539H, Pro -B-Type Natriuretic Peptide 5804H, Total Protein 3.1L, Albumin 2.5L, Globulin 0.6, Albumin/Globulin Ratio 4.2H Height (Feet): 5 Height (Inches): 2.00 Weight (Pounds): 87 General Appearance: WD/WN, no apparent distress, alert, confused Neurologic: depressed affect Cosmo Smith M.D. Feb 15, 2018 15:13
--- NOTE | 2018-02-15 15:38 | Infectious Diseases Prog Note ---
Assessment/Plan Assessment/Plan Assessment: Afebrile, no leukocytosis Dyspnea- 2ry to CHF exacerbation; no PNA -CXR: Cardiomegaly and mild interstitial opacification/edema. Linear opacity in the left midlung likely related to subsegmental atelectasis or scarring. Troponinemia- ?NSTEMI I vs II MACY R wirst abrasion with mild surrounding cellulitis -wound cx : MRSA (S Vanco, bactrim, tetracycline) ESRD on HD TThS L AVG and R chest permacath DM2 HLD CVA/ICH 2013 s/p craniotomy s/p L hip replacement 2016 CHF/ICM s/p PPM 2017 CAD/NSTEMI s/p stent PVD w/ ulcers on R dorman and gangrenous toe custodial resident Plan: -Switch IV Vancomycin #/ to PO Doxycycline 100mg bid for MRSA cellulitis R wrist -02/13 SP Levaquin #1 -f/u cx -Monitor CBC/BMP, temperatures -cards, renal f/u -aspiration precautions Thank you for this consultation. Will continue to follow along with you. Discussed with RN and Dr Joyce. Subjective Allergies: Coded Allergies: OLMESARTAN (Verified Allergy, Mild, 01/18/14) SWOOLEN BODY DRONABINOL (Verified Allergy, Unknown, 02/13/18) HEPARIN (Verified Adverse Reaction, Severe, 01/18/14) DR JESI ROBERTS RE ICB NOV THAT PATIENT CANNOT HAVE HEPARIN. Subjective afebrile no leukocytosis At RA Objective Vital Signs Last 24 Hour Vital Signs Date Time Temp Pulse Resp B/P (MAP) Pulse Ox O2 Delivery O2 Flow Rate FiO2 02/15/18 12:00 68 02/15/18 08:28 73 18 Room Air 02/15/18 08:00 98.2 71 20 110/49 97 Room Air 98.2 02/15/18 08:00 71 02/15/18 00:00 88 02/15/18 00:00 98.8 79 20 135/65 96 Room Air 98.8 02/14/18 21:21 58 20 Room Air 21 02/14/18 20:00 78 02/14/18 16:49 Room Air 02/14/18 16:48 Room Air 2.0 21 02/14/18 16:48 Room Air 2.0 21 02/14/18 16:36 97.3 72 20 136/62 Room Air 97.3 02/14/18 16:00 64 Height (Feet): 5 Height (Inches): 2.00 Weight (Pounds): 87 Objective GENERAL: The patient is a thin-appearing female, in no apparent distress. HEENT: Eyes, pupils equal and responsive to light and accommodation. Extraocular movements are intact. NECK: Supple. No lymphadenopathy. CHEST: Lungs are clear to auscultation bilaterally without wheezes or rales. CARDIOVASCULAR: Regular rhythm and rate. S1, S2 normal without murmurs, rubs, or gallops. ABDOMEN: Soft, nontender, nondistended. Positive bowel sounds. No evidence of hepatosplenomegaly. Currently, no rebound or guarding noted. EXTREMITIES: Negative for clubbing, cyanosis, or edema. There are multiple ulcers over the right leg and right arm which are healing. Microbiology Date/Time Source Procedure Growth Status 02/13/18 01:00 Nasal Nares MRSA Culture - Final NO METHICILLIN RESISTANT STAPH AUREUS... Complete 02/13/18 02:30 Wrist Right Gram Stain - Final Resulted 02/13/18 02:30 Wound Culture - Preliminary Staphylococcus Aureus Resulted 02/13/18 01:00 Rectum VRE Culture - Final Enterococcus Faecalis - Vre Complete Laboratory Tests Test 02/15/18 11:10 White Blood Count 6.6 K/UL (4.8-10.8) Red Blood Count 3.59 M/UL (4.20-5.40) L Hemoglobin 12.2 G/DL (12.0-16.0) Hematocrit 37.9 % (37.0-47.0) Mean Corpuscular Volume 106 FL (80-99) H Mean Corpuscular Hemoglobin 33.9 PG (27.0-31.0) H Mean Corpuscular Hemoglobin Concent 32.1 G/DL (32.0-36.0) Red Cell Distribution Width 16.0 % (11.6-14.8) H Platelet Count 107 K/UL (150-450) L Mean Platelet Volume 8.5 FL (6.5-10.1) Neutrophils (%) (Auto) 81.2 % (45.0-75.0) H Lymphocytes (%) (Auto) 10.5 % (20.0-45.0) L Monocytes (%) (Auto) 6.8 % (1.0-10.0) Eosinophils (%) (Auto) 0.7 % (0.0-3.0) Basophils (%) (Auto) 0.8 % (0.0-2.0) Sodium Level 136 MMOL/L (136-145) Potassium Level 3.5 MMOL/L (3.5-5.1) Chloride Level 96 MMOL/L (98-107) L Carbon Dioxide Level 38 MMOL/L (21-32) H Anion Gap 2 mmol/L (5-15) L Blood Urea Nitrogen 29 mg/dL (7-18) H Creatinine 3.6 MG/DL (0.55-1.30) H Estimat Glomerular Filtration Rate mL/min (>60) Glucose Level 170 MG/DL (74-106) H Calcium Level 7.4 MG/DL (8.5-10.1) L Phosphorus Level 2.9 MG/DL (2.5-4.9) Magnesium Level 2.2 MG/DL (1.8-2.4) Total Bilirubin 1.1 MG/DL (0.2-1.0) H Direct Bilirubin 0.5 MG/DL (0.0-0.3) H Aspartate Amino Transf (AST/SGOT) 40 U/L (15-37) H Alanine Aminotransferase (ALT/SGPT) 15 U/L (12-78) Alkaline Phosphatase 108 U/L (46-116) Troponin I 3.539 ng/mL (0.000-0.056) Pro-B-Type Natriuretic Peptide 5804 pg/mL (0-125) H Total Protein 3.1 G/DL (6.4-8.2) L Albumin 2.5 G/DL (3.4-5.0) L Globulin 0.6 g/dL Albumin/Globulin Ratio 4.2 (1.0-2.7) H Current Medications Medications (Trade) Dose Ordered Sig/Finn Route PRN Reason Start Time Stop Time Status Last Admin Dose Admin Albuterol/ Ipratropium (Albuterol/ Ipratropium) 3 ml EVERY 4 HOURS PRN HHN Shortness of Breath 02/13/18 12:45 02/18/18 12:44 Atorvastatin Calcium (Lipitor) 80 mg BEDTIME ORAL 02/13/18 21:00 03/15/18 20:59 02/13/18 21:20 Benzonatate (Tessalon Perles) 100 mg THREE TIMES A DAY ORAL 02/13/18 09:00 03/15/18 08:59 02/15/18 13:24 Bisacodyl (Dulcolax) 10 mg EVERY 6 HOURS PRN RECTAL Constipation 02/13/18 04:15 03/15/18 04:14 Clopidogrel Bisulfate (Plavix) 75 mg DAILY ORAL 02/13/18 09:00 03/15/18 08:59 02/15/18 08:35 Dextrose (Dextrose 50%) 25 ml STAT PRN IV Hypoglycemia 02/13/18 04:00 03/15/18 03:59 Dextrose (Dextrose 50%) 50 ml STAT PRN IV Hypoglycemia 02/13/18 04:00 03/15/18 03:59 Diphenhydramine HCl (Benadryl) 25 mg Q6H PRN ORAL Itching 02/13/18 04:15 03/15/18 04:14 Docusate Sodium (Colace) 100 mg THREE TIMES A DAY ORAL 02/13/18 18:00 03/15/18 17:59 02/15/18 13:24 Guaifenesin (Robitussin) 200 mg Q4H PRN ORAL For Cough 02/13/18 04:15 03/15/18 04:14 Hydroxyzine HCl (Atarax) 25 mg Q6HR PRN ORAL Itching 02/13/18 04:15 03/15/18 04:14 Insulin Aspart (NovoLOG) BEFORE MEALS AND HS SUBQ 02/13/18 06:30 03/15/18 06:29 02/14/18 06:46 Insulin Detemir (Levemir) 5 units DAILY SUBQ 02/13/18 09:00 03/15/18 08:59 02/15/18 09:05 Lidocaine (Lidoderm 5% PATCH) 1 patch EVERY 12 HOURS PRN TDERMAL For Pain 02/13/18 04:15 03/15/18 04:14 Pantoprazole (Protonix) 40 mg EVERY 12 HOURS ORAL 02/13/18 21:00 03/15/18 20:59 02/15/18 08:35 Promethazine HCl/ Codeine (Phenergan with Codeine) 5 ml Q4H PRN ORAL For Cough 02/13/18 12:45 03/15/18 12:44 Quetiapine Fumarate (SEROquel) 25 mg DAILYPRN PRN ORAL PRIOR TO HD SESSIONS ONLY 02/13/18 08:45 03/15/18 08:44 Sevelamer Carbonate (Renvela) 1,600 mg THREE TIMES A DAY ORAL 02/13/18 18:00 03/15/18 08:59 02/15/18 13:24 Tramadol HCl (Ultram) 25 mg Q6H PRN ORAL Moderate Pain (Pain Scale 4-6) 02/13/18 07:00 02/20/18 06:59 02/15/18 01:33 Vancomycin HCl (Vanco rx to dose) 1 ea DAILY PRN MISC Per rx protocol 02/15/18 12:00 03/17/18 11:59 Vitamin B Complex/ Vit C/Folic Acid (Nephrovite) 1 tab DAILY ORAL 02/13/18 09:00 03/15/18 08:59 02/15/18 08:35 Cora Smith M.D. Feb 15, 2018 15:38
[2018-02-15 16:00] VITALS: BP 127/58
--- NOTE | 2018-02-15 17:00 | Cardiology Progress Note ---
Assessment/Plan Assessment/Plan 1. [id number]-[id number] myocardial infarction, possibly demand related. 2. [id number] coronary artery disease on cardiac catheterization in 2015. 3. End-stage renal disease, on hemodialysis. 4. Hypotension. 5. Aortic stenosis. 6. LV systolic dysfunction. 7. Congestive heart failure. 8. Peripheral vascular disease. repeat trop elevated more so than 2 days ago tele neg bp reading are better cortisol ordered already dnr per son poor candidate for invasive eval Subjective Cardiovascular: Denies: chest pain, lightheadedness, palpitations Respiratory: Denies: shortness of breath Gastrointestinal/Abdominal: Denies: abdominal pain Subjective rn translated Objective Last 24 Hour Vital Signs Date Time Temp Pulse Resp B/P (MAP) Pulse Ox O2 Delivery O2 Flow Rate FiO2 02/15/18 16:00 97.7 70 20 127/58 97 Room Air 97.7 02/15/18 12:00 68 02/15/18 08:28 73 18 Room Air 02/15/18 08:00 98.2 71 20 110/49 97 Room Air 98.2 02/15/18 08:00 71 02/15/18 00:00 88 02/15/18 00:00 98.8 79 20 135/65 96 Room Air 98.8 02/14/18 21:21 58 20 Room Air 21 02/14/18 20:00 78 General Appearance: no apparent distress, alert Neck: supple Cardiovascular: normal rate, regular rhythm Respiratory/Chest: lungs clear Abdomen: normal bowel sounds, non tender, soft Extremities: no swelling Intake and Output 02/14/18 02/15/18 19:00 07:00 Intake Total 150 ml Balance 150 ml Intake Oral 150 ml # Voids 1 Laboratory Tests Test 02/15/18 11:10 White Blood Count 6.6 K/UL (4.8-10.8) Red Blood Count 3.59 M/UL (4.20-5.40) L Hemoglobin 12.2 G/DL (12.0-16.0) Hematocrit 37.9 % (37.0-47.0) Mean Corpuscular Volume 106 FL (80-99) H Mean Corpuscular Hemoglobin 33.9 PG (27.0-31.0) H Mean Corpuscular Hemoglobin Concent 32.1 G/DL (32.0-36.0) Red Cell Distribution Width 16.0 % (11.6-14.8) H Platelet Count 107 K/UL (150-450) L Mean Platelet Volume 8.5 FL (6.5-10.1) Neutrophils (%) (Auto) 81.2 % (45.0-75.0) H Lymphocytes (%) (Auto) 10.5 % (20.0-45.0) L Monocytes (%) (Auto) 6.8 % (1.0-10.0) Eosinophils (%) (Auto) 0.7 % (0.0-3.0) Basophils (%) (Auto) 0.8 % (0.0-2.0) Sodium Level 136 MMOL/L (136-145) Potassium Level 3.5 MMOL/L (3.5-5.1) Chloride Level 96 MMOL/L (98-107) L Carbon Dioxide Level 38 MMOL/L (21-32) H Anion Gap 2 mmol/L (5-15) L Blood Urea Nitrogen 29 mg/dL (7-18) H Creatinine 3.6 MG/DL (0.55-1.30) H Estimat Glomerular Filtration Rate mL/min (>60) Glucose Level 170 MG/DL (74-106) H Calcium Level 7.4 MG/DL (8.5-10.1) L Phosphorus Level 2.9 MG/DL (2.5-4.9) Magnesium Level 2.2 MG/DL (1.8-2.4) Total Bilirubin 1.1 MG/DL (0.2-1.0) H Direct Bilirubin 0.5 MG/DL (0.0-0.3) H Aspartate Amino Transf (AST/SGOT) 40 U/L (15-37) H Alanine Aminotransferase (ALT/SGPT) 15 U/L (12-78) Alkaline Phosphatase 108 U/L (46-116) Troponin I 3.539 ng/mL (0.000-0.056) Pro-B-Type Natriuretic Peptide 5804 pg/mL (0-125) H Total Protein 3.1 G/DL (6.4-8.2) L Albumin 2.5 G/DL (3.4-5.0) L Globulin 0.6 g/dL Albumin/Globulin Ratio 4.2 (1.0-2.7) H Microbiology Date/Time Source Procedure Growth Status 02/13/18 01:00 Nasal Nares MRSA Culture - Final NO METHICILLIN RESISTANT STAPH AUREUS... Complete 02/13/18 02:30 Wrist Right Gram Stain - Final Resulted 02/13/18 02:30 Wound Culture - Preliminary Staphylococcus Aureus Resulted 02/13/18 01:00 Rectum VRE Culture - Final Enterococcus Faecalis - Vre Complete UBALDO DALLAS Feb 15, 2018 17:00
[2018-02-15 20:00] VITALS: BP 135/66
[2018-02-15] MEDS ORDERED: Nitroglycerin 2% oint pkt TOPIC SCH (20:30)
[2018-02-15] MEDS: Atorvastatin 80mg tab ORAL SCH ×2 (21:00→21:21)
[2018-02-16] MEDS: Nitroglycerin 2% oint pkt TOPIC SCH ×4 (00:20→18:17)
[2018-02-16] MEDS: NovoLOG Insulin Flexpen SUBQ SCH ×4 (06:06→21:01)
[2018-02-16 08:00] VITALS: BP 133/67
[2018-02-16] MEDS: Nephrovite tab (Rena-Vite) ORAL SCH (08:19)
[2018-02-16] MEDS: Benzonatate 100mg Perles ORAL SCH ×3 (08:19→18:17)
[2018-02-16] MEDS: Renvela 800mg Pkt ORAL SCH ×3 (08:20→18:18)
[2018-02-16] MEDS: Docusate 100mg cap ORAL SCH ×3 (08:20→18:17)
[2018-02-16] MEDS: Levemir Flexpen SUBQ SCH (09:00)
--- NOTE | 2018-02-16 09:09 | Nephrology Progress Note ---
Assessment/Plan Problem List: (1) ESRD (end stage renal disease) on dialysis (2) Elevated troponin (3) Congestive heart failure (CHF) (4) Diabetes mellitus Assessment admitted with CP and high Trop I ESRD left arm fistula HTN s/p Craniotomy DM2 HypoAlbuminemia Pulm HTN h/o SDH Anemia CHF Diastolic Pacer TR Plan Plan: Adjust BP meds, fluid challenged Echo: Noted Phos binders- Gastric support Per orders HD 02/14 done, nexr planned HD 02/18 Hold Cincalcet / Sensipar for low Ca Subjective ROS Limited/Unobtainable: No Constitutional: Reports: malaise Objective Objective Last 24 Hour Vital Signs Date Time Temp Pulse Resp B/P (MAP) Pulse Ox O2 Delivery O2 Flow Rate FiO2 02/16/18 08:00 97.3 77 19 133/67 99 Room Air 97.3 02/16/18 07:41 74 18 Room Air 21 02/16/18 06:00 153/82 02/16/18 05:33 72 18 Room Air 02/16/18 04:00 69 02/16/18 00:20 153/82 02/15/18 21:21 127/58 02/15/18 20:00 97.6 70 19 135/66 97 Room Air 97.6 02/15/18 16:00 97.7 70 20 127/58 97 Room Air 97.7 02/15/18 16:00 68 02/15/18 12:00 68 Intake and Output 02/15/18 02/16/18 19:00 07:00 Intake Total 220 ml 550 ml Balance 220 ml 550 ml Intake Oral 220 ml 550 ml Laboratory Tests 02/15/18 11:10: White Blood Count 6.6, Red Blood Count 3.59L, Hemoglobin 12.2, Hematocrit 37.9, Mean Corpuscular Volume 106H, Mean Corpuscular Hemoglobin 33.9H, Mean Corpuscular Hemoglobin Concent 32.1, Red Cell Distribution Width 16.0H, Platelet Count 107L, Mean Platelet Volume 8.5, Neutrophils (%) (Auto) 81.2H, Lymphocytes (%) (Auto) 10.5L, Monocytes (%) (Auto) 6.8, Eosinophils (%) (Auto) 0.7, Basophils (%) (Auto) 0.8, Sodium Level 136, Potassium Level 3.5, Chloride Level 96L, Carbon Dioxide Level 38H, Anion Gap 2L, Blood Urea Nitrogen 29H, Creatinine 3.6H, Estimat Glomerular Filtration Rate , Glucose Level 170H, Calcium Level 7.4L, Phosphorus Level 2.9, Magnesium Level 2.2, Total Bilirubin 1.1H, Direct Bilirubin 0.5H, Aspartate Amino Transf (AST/SGOT) 40H, Alanine Aminotransferase (ALT/SGPT) 15, Alkaline Phosphatase 108, Troponin I 3.539H, Pro -B-Type Natriuretic Peptide 5804H, Total Protein 3.1L, Albumin 2.5L, Globulin 0.6, Albumin/Globulin Ratio 4.2H 02/15/18 18:10: Troponin I 4.240H 02/16/18 07:07: Troponin I [Pending], Prothrombin Time 10.4, Prothromb Time International Ratio 1.0, Activated Partial Thromboplast Time 32 Height (Feet): 5 Height (Inches): 2.00 Weight (Pounds): 87 General Appearance: no apparent distress Cardiovascular: normal rate Respiratory/Chest: decreased breath sounds Abdomen: soft Objective no change ARLET NINO Feb 16, 2018 09:09
[2018-02-16] MEDS: Lisinopril 2.5mg tab ORAL SCH ×2 (09:23→18:17)
[2018-02-16 12:00] VITALS: BP 134/69
--- NOTE | 2018-02-16 12:46 | Infectious Diseases Prog Note ---
Assessment/Plan Assessment/Plan Assessment: Afebrile, no leukocytosis Dyspnea- 2ry to CHF exacerbation; no PNA -CXR: Cardiomegaly and mild interstitial opacification/edema. Linear opacity in the left midlung likely related to subsegmental atelectasis or scarring. Troponinemia- ?NSTEMI I vs II MACY R wirst abrasion with mild surrounding cellulitis -wound cx : MRSA (S Vanco, bactrim, tetracycline) ESRD on HD TThS L AVG and R chest permacath DM2 HLD CVA/ICH 2013 s/p craniotomy s/p L hip replacement 2016 CHF/ICM s/p PPM 2017 CAD/NSTEMI s/p stent PVD w/ ulcers on R dorman and gangrenous toe [facility] resident Plan: - PO Doxycycline 100mg bid ( d# 2 /5 )for MRSA cellulitis R wrist - 02/15 SP IV Vancomycin d# 1 -02/13 SP Levaquin #1 -f/u cx -Monitor CBC/BMP, temperatures -cards, renal f/u -aspiration precautions Subjective Constitutional: Denies: no symptoms, fever, chills, fatigue, anorexia, drenching sweats, other Allergies: Coded Allergies: OLMESARTAN (Verified Allergy, Mild, 01/18/14) SWOOLEN BODY DRONABINOL (Verified Allergy, Unknown, 02/13/18) HEPARIN (Verified Adverse Reaction, Severe, 01/18/14) TOLD ALEJANDRA RE ICNov THAT PATIENT CANNOT HAVE HEPARIN. Objective Vital Signs Last 24 Hour Vital Signs Date Time Temp Pulse Resp B/P (MAP) Pulse Ox O2 Delivery O2 Flow Rate FiO2 02/16/18 12:14 134/69 02/16/18 12:00 97.9 76 19 134/69 99 Room Air 97.9 02/16/18 09:23 133/67 02/16/18 08:00 77 02/16/18 08:00 97.3 77 19 133/67 99 Room Air 97.3 02/16/18 07:41 74 18 Room Air 21 02/16/18 06:00 153/82 02/16/18 05:33 72 18 Room Air 02/16/18 04:00 69 02/16/18 00:20 153/82 02/15/18 21:21 127/58 02/15/18 20:00 97.6 70 19 135/66 97 Room Air 97.6 02/15/18 16:00 97.7 70 20 127/58 97 Room Air 97.7 02/15/18 16:00 68 Height (Feet): 5 Height (Inches): 2.00 Weight (Pounds): 87 HEENT: anicteric Respiratory/Chest: normal breath sounds Cardiovascular: normal peripheral pulses Abdomen: soft, non tender Laboratory Tests Test 02/15/18 18:10 02/16/18 07:07 Troponin I 4.240 ng/mL (0.000-0.056) 3.405 ng/mL (0.000-0.056) Prothrombin Time 10.4 SEC (9.30-11.50) Prothromb Time International Ratio 1.0 (0.9-1.1) Activated Partial Thromboplast Time 32 SEC (23-33) Current Medications Medications (Trade) Dose Ordered Sig/Finn Route PRN Reason Start Time Stop Time Status Last Admin Dose Admin Albuterol/ Ipratropium (Albuterol/ Ipratropium) 3 ml EVERY 4 HOURS PRN HHN Shortness of Breath 02/13/18 12:45 02/18/18 12:44 Atorvastatin Calcium (Lipitor) 80 mg BEDTIME ORAL 02/13/18 21:00 03/15/18 20:59 02/13/18 21:20 Benzonatate (Tessalon Perles) 100 mg THREE TIMES A DAY ORAL 02/13/18 09:00 03/15/18 08:59 02/16/18 12:15 Bisacodyl (Dulcolax) 10 mg EVERY 6 HOURS PRN RECTAL Constipation 02/13/18 04:15 03/15/18 04:14 Clopidogrel Bisulfate (Plavix) 75 mg DAILY ORAL 02/13/18 09:00 03/15/18 08:59 02/16/18 08:19 Dextrose (Dextrose 50%) 25 ml STAT PRN IV Hypoglycemia 02/13/18 04:00 03/15/18 03:59 Dextrose (Dextrose 50%) 50 ml STAT PRN IV Hypoglycemia 02/13/18 04:00 03/15/18 03:59 Diphenhydramine HCl (Benadryl) 25 mg Q6H PRN ORAL Itching 4/25/18 04:15 03/15/18 04:14 Docusate Sodium (Colace) 100 mg THREE TIMES A DAY ORAL 02/13/18 18:00 03/15/18 17:59 02/16/18 12:14 Doxycycline Monohydrate (Vibramycin) 100 mg EVERY 12 HOURS ORAL 02/16/18 09:00 02/23/18 08:59 02/16/18 08:19 Guaifenesin (Robitussin) 200 mg Q4H PRN ORAL For Cough 02/13/18 04:15 03/15/18 04:14 Hydroxyzine HCl (Atarax) 25 mg Q6HR PRN ORAL Itching 02/13/18 04:15 03/15/18 04:14 Insulin Aspart (NovoLOG) BEFORE MEALS AND HS SUBQ 02/13/18 06:30 03/15/18 06:29 02/14/18 06:46 Insulin Detemir (Levemir) 5 units DAILY SUBQ 02/13/18 09:00 03/15/18 08:59 02/16/18 09:00 Lidocaine (Lidoderm 5% PATCH) 1 patch EVERY 12 HOURS PRN TDERMAL For Pain 02/13/18 04:15 03/15/18 04:14 Lisinopril (Zestril) 2.5 mg BID ORAL 02/16/18 09:30 03/18/18 09:29 02/16/18 09:23 Nitroglycerin (Nitro-Bid) 0.5 inch EVERY 6 HOURS TOPIC 02/16/18 00:00 03/18/18 00:00 02/16/18 12:14 Pantoprazole (Protonix) 40 mg EVERY 12 HOURS ORAL 02/13/18 21:00 03/15/18 20:59 02/16/18 08:19 Promethazine HCl/ Codeine (Phenergan with Codeine) 5 ml Q4H PRN ORAL For Cough 02/13/18 12:45 03/15/18 12:44 Quetiapine Fumarate (SEROquel) 25 mg DAILYPRN PRN ORAL PRIOR TO HD SESSIONS ONLY 02/13/18 08:45 03/15/18 08:44 Sevelamer Carbonate (Renvela) 1,600 mg THREE TIMES A DAY ORAL 02/13/18 18:00 03/15/18 08:59 02/16/18 12:15 Tramadol HCl (Ultram) 25 mg Q6H PRN ORAL Moderate Pain (Pain Scale 4-6) 02/13/18 07:00 02/20/18 06:59 02/15/18 01:33 Vitamin B Complex/ Vit C/Folic Acid (Nephrovite) 1 tab DAILY ORAL 02/13/18 09:00 03/15/18 08:59 02/16/18 08:19 Miguelangel Cruz MD Feb 16, 2018 12:45
[2018-02-16 16:00] VITALS: BP 132/70
[2018-02-16] MEDS ORDERED: Fleet's Enema 133ml RECTAL PRN (19:15)
--- NOTE | 2018-02-16 19:17 | Internal Med Progress Note ---
Subjective Physician Name Nas Garcia Attending Physician Nas Garcia MD Current Medications Medications (Trade) Dose Ordered Sig/Finn Route PRN Reason Start Time Stop Time Status Last Admin Dose Admin Albuterol/ Ipratropium (Albuterol/ Ipratropium) 3 ml EVERY 4 HOURS PRN HHN Shortness of Breath 02/13/18 12:45 02/18/18 12:44 Atorvastatin Calcium (Lipitor) 80 mg BEDTIME ORAL 02/13/18 21:00 03/15/18 20:59 02/13/18 21:20 Benzonatate (Tessalon Perles) 100 mg THREE TIMES A DAY ORAL 02/13/18 09:00 03/15/18 08:59 02/16/18 18:17 Bisacodyl (Dulcolax) 10 mg EVERY 6 HOURS PRN RECTAL Constipation 02/13/18 04:15 03/15/18 04:14 02/16/18 17:00 Clopidogrel Bisulfate (Plavix) 75 mg DAILY ORAL 02/13/18 09:00 03/15/18 08:59 02/16/18 08:19 Dextrose (Dextrose 50%) 25 ml STAT PRN IV Hypoglycemia 02/13/18 04:00 03/15/18 03:59 Dextrose (Dextrose 50%) 50 ml STAT PRN IV Hypoglycemia 02/13/18 04:00 03/15/18 03:59 Diphenhydramine HCl (Benadryl) 25 mg Q6H PRN ORAL Itching 02/13/18 04:15 03/15/18 04:14 Docusate Sodium (Colace) 100 mg THREE TIMES A DAY ORAL 02/13/18 18:00 03/15/18 17:59 02/16/18 18:17 Doxycycline Monohydrate (Vibramycin) 100 mg EVERY 12 HOURS ORAL 02/16/18 09:00 02/23/18 08:59 02/16/18 08:19 Guaifenesin (Robitussin) 200 mg Q4H PRN ORAL For Cough 02/13/18 04:15 03/15/18 04:14 Hydroxyzine HCl (Atarax) 25 mg Q6HR PRN ORAL Itching 02/13/18 04:15 03/15/18 04:14 Insulin Aspart (NovoLOG) BEFORE MEALS AND HS SUBQ 4/25/18 06:30 03/15/18 06:29 02/14/18 06:46 Insulin Detemir (Levemir) 5 units DAILY SUBQ 02/13/18 09:00 03/15/18 08:59 02/16/18 09:00 Lidocaine (Lidoderm 5% PATCH) 1 patch EVERY 12 HOURS PRN TDERMAL For Pain 02/13/18 04:15 03/15/18 04:14 Lisinopril (Zestril) 2.5 mg BID ORAL 02/16/18 09:30 03/18/18 09:29 02/16/18 18:17 Nitroglycerin (Nitro-Bid) 0.5 inch EVERY 6 HOURS TOPIC 02/16/18 00:00 03/18/18 00:00 02/16/18 18:17 Pantoprazole (Protonix) 40 mg EVERY 12 HOURS ORAL 02/13/18 21:00 03/15/18 20:59 02/16/18 08:19 Promethazine HCl/ Codeine (Phenergan with Codeine) 5 ml Q4H PRN ORAL For Cough 02/13/18 12:45 03/15/18 12:44 Quetiapine Fumarate (SEROquel) 25 mg DAILYPRN PRN ORAL PRIOR TO HD SESSIONS ONLY 02/13/18 08:45 03/15/18 08:44 Sevelamer Carbonate (Renvela) 1,600 mg THREE TIMES A DAY ORAL 02/13/18 18:00 03/15/18 08:59 02/16/18 18:18 Sodium Phosphate (Fleet's Sodium Phosl Enema) 133 ml ONCE ONCE RECTAL 02/16/18 19:15 02/16/18 19:16 UNV Tramadol HCl (Ultram) 25 mg Q6H PRN ORAL Moderate Pain (Pain Scale 4-6) 02/13/18 07:00 02/20/18 06:59 02/15/18 01:33 Vitamin B Complex/ Vit C/Folic Acid (Nephrovite) 1 tab DAILY ORAL 02/13/18 09:00 03/15/18 08:59 02/16/18 08:19 Allergies: Coded Allergies: OLMESARTAN (Verified Allergy, Mild, 01/18/14) SWOOLEN BODY DRONABINOL (Verified Allergy, Unknown, 02/13/18) HEPARIN (Verified Adverse Reaction, Severe, 01/18/14) DR TOLD SONS RE ICB NOV THAT PATIENT CANNOT HAVE HEPARIN. Subjective awake, alert, responsive, NAD, feeling good, sitting up at bedside, Troponin 3.405 (decreasing) Objective Last Vital Signs Date Time Temp Pulse Resp B/P (MAP) Pulse Ox O2 Delivery O2 Flow Rate FiO2 02/16/18 18:17 132/70 02/16/18 16:00 97.2 78 19 95 Room Air 97.2 02/16/18 07:41 21 02/14/18 16:48 2.0 Laboratory Tests Test 02/16/18 07:07 Prothrombin Time 10.4 SEC (9.30-11.50) Prothromb Time International Ratio 1.0 (0.9-1.1) Activated Partial Thromboplast Time 32 SEC (23-33) Troponin I 3.405 ng/mL (0.000-0.056) Intake and Output 02/15/18 02/16/18 19:00 07:00 Intake Total 220 ml 550 ml Balance 220 ml 550 ml Intake Oral 220 ml 550 ml Objective General: No acute distress, awake and alert HEENT: NCAT, sclera anicteric, PERRL, EOMI. Neck: Supple, no significant jugular venous distention, Lungs: Fair inspiratory effort, clear to auscultation bilaterally, no Wheeze or Rales. Heart: Regular rate and rhythm, normal S1/S2, no murmur Abdomen: soft, nontender, nondistended. Normoactive bowel sounds. Extremities: No Cyanosis , clubbing, + 1 edema. Muscle atrophy. left UE AVF. Neuro: A&O x 3, Able to move all extremities Skin: warm, no rashes, Right toe gangrene toe. Assessment/Plan Assessment/Plan Dyspnea- 2ry to CHF exacerbation ACS- NSTEMI ESRD on HD TThS DM2 HLD CVA/ICH 2013 s/p craniotomy s/p L hip replacement 2016 CHF/ICM s/p PPM 2017 CAD/NSTEMI s/p stent Severe PAD / PVD w/ ulcers on R dorman and gangrenous toe moderate to severe aortic stenosis. Moderate mitral regurgitation. Moderate to severe pulmonary hypertension. Plan: Dialysis on Sunday Monitor labs and culture PT Mobility Full code SCD Abx: Vanco IV 2D Echo: Normal left ventricular chamber size. Global left ventricular hypokinesis. Left ventricular ejection fraction estimated to be 40 %. Mild left ventricular hypertrophy. No evidence of pericardial effusion. Moderate left atrial enlargement. Mild right atrial enlargement. Right ventricular chamber size is within normal limits. Aortic valve calcification with decreased cusp excursion c/w aortic stenosis. Moderately thickened mitral valve leaflets with normal excursion. Heavy mitral annulus and aortic root calcification. Normal pulmonic valve structure. Normal tricuspid valve structure. IVC dilated at 2.2 cm with slight physiologic collapse suggestive of increased RA pressure. A color flow and spectral Doppler study was performed and revealed: Moderate aortic regurgitation. Peak aortic valve gradient of 45 mm Hg and a mean of 22 mmHg. Aortic valve area 0.9 cm2 calculated by continuity equation suggestive of moderate to severe aortic stenosis. Moderate mitral regurgitation. Mitral inflow velocities indicates possible pseudo normalization pattern implying moderately elevated left atrial pressure (Grade II ) Moderate to severe tricuspid regurgitation. Tricuspid systolic velocities suggests peak right ventricular systolic pressure of 56 mmHg, consistent with moderate to severe pulmonary hypertension. Moderate pulmonic regurgitation present. Nas Garcia MD Feb 16, 2018 19:17
[2018-02-16 20:00] VITALS: BP 149/66
[2018-02-16] MEDS: Atorvastatin 80mg tab ORAL SCH (20:57)
--- NOTE | 2018-02-16 22:09 | Cardiology Progress Note ---
Assessment/Plan Assessment/Plan CMP elevated troponin severe renal disease at present time the aptient is stable family is not present Subjective Subjective The patient is sitting across the bed, alert denies chest pain or dyspnea refusing to lay down, reports that he is comfortable in that position Objective Last 24 Hour Vital Signs Date Time Temp Pulse Resp B/P (MAP) Pulse Ox O2 Delivery O2 Flow Rate FiO2 02/16/18 18:17 132/70 02/16/18 18:17 132/70 02/16/18 16:00 97.2 78 19 132/70 95 Room Air 97.2 02/16/18 12:14 134/69 02/16/18 12:00 97.9 76 19 134/69 99 Room Air 97.9 02/16/18 09:23 133/67 02/16/18 08:00 77 02/16/18 08:00 97.3 77 19 133/67 99 Room Air 97.3 02/16/18 07:41 74 18 Room Air 21 02/16/18 06:00 153/82 02/16/18 05:33 72 18 Room Air 02/16/18 04:00 69 02/16/18 00:20 153/82 General Appearance: severe distress, other - looks chronically ill EENT: PERRL/EOMI Neck: JVD Rhythm: PACs Cardiovascular: regular rhythm Respiratory/Chest: rhonchi - bilaterally Abdomen: non tender Extremities: other - there is wound on the right arm and rash on LE 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
--- NOTE | 2018-02-16 22:27 | Pulmonology Progress Note ---
Assessment/Plan Problems: (1) Non-ST elevation (NSTEMI) myocardial infarction (2) Acute bronchitis (3) Pulmonary edema (4) ESRD (end stage renal disease) on dialysis (5) Severe protein-calorie malnutrition (6) PVD (peripheral vascular disease) (7) Congestive heart failure (CHF) (8) Hypoxia (9) DNR (do not resuscitate) Assessment/Plan all noted respiratory treatment check sputum one episode of hypotension yesterday, responded to NS 500 cc f/u troponin this morning VRE positive recutm wrist has MRSA, f/u cardiology recommendations med/surg when ok with splunk developer Subjective Allergies: Coded Allergies: OLMESARTAN (Verified Allergy, Mild, 01/18/14) SWOOLEN BODY DRONABINOL (Verified Allergy, Unknown, 02/13/18) HEPARIN (Verified Adverse Reaction, Severe, 01/18/14) TOLD SONS RE ICNov THAT PATIENT CANNOT HAVE HEPARIN. Objective Last 24 Hour Vital Signs Date Time Temp Pulse Resp B/P (MAP) Pulse Ox O2 Delivery O2 Flow Rate FiO2 02/16/18 20:00 83 02/16/18 18:17 132/70 02/16/18 18:17 132/70 02/16/18 16:00 97.2 78 19 132/70 95 Room Air 97.2 02/16/18 12:14 134/69 02/16/18 12:00 97.9 76 19 134/69 99 Room Air 97.9 02/16/18 09:23 133/67 02/16/18 08:00 77 02/16/18 08:00 97.3 77 19 133/67 99 Room Air 97.3 02/16/18 07:41 74 18 Room Air 21 02/16/18 06:00 153/82 02/16/18 05:33 72 18 Room Air 02/16/18 04:00 69 02/16/18 00:20 153/82 Intake and Output 02/15/18 02/16/18 19:00 07:00 Intake Total 220 ml 550 ml Balance 220 ml 550 ml Intake Oral 220 ml 550 ml Objective General Appearance: cachectic HEENT: normocephalic, atraumatic Respiratory/Chest: chest wall non-tender, + rhonchi Cardiovascular: normal peripheral pulses, normal rate, regular rhythm Abdomen: normal bowel sounds, soft, non tender, no organomegaly, non distended Extremities: no cyanosis, no clubbing, no edema Skin: right wrist Neurologic/Psychiatric: flexible shaft winder II-XII grossly normal Laboratory Tests 02/16/18 07:07: Prothrombin Time 10.4, Prothromb Time International Ratio 1.0, Activated Partial Thromboplast Time 32, Troponin I 3.405H Current Medications Medications (Trade) Dose Ordered Sig/Finn Route PRN Reason Start Time Stop Time Status Last Admin Dose Admin Albuterol/ Ipratropium (Albuterol/ Ipratropium) 3 ml EVERY 4 HOURS PRN HHN Shortness of Breath 02/13/18 12:45 02/18/18 12:44 Atorvastatin Calcium (Lipitor) 80 mg BEDTIME ORAL 02/13/18 21:00 03/15/18 20:59 02/13/18 21:20 Benzonatate (Tessalon Perles) 100 mg THREE TIMES A DAY ORAL 02/13/18 09:00 03/15/18 08:59 02/16/18 18:17 Bisacodyl (Dulcolax) 10 mg EVERY 6 HOURS PRN RECTAL Constipation 02/13/18 04:15 03/15/18 04:14 02/16/18 17:00 Clopidogrel Bisulfate (Plavix) 75 mg DAILY ORAL 02/13/18 09:00 03/15/18 08:59 02/16/18 08:19 Dextrose (Dextrose 50%) 25 ml STAT PRN IV Hypoglycemia 02/13/18 04:00 03/15/18 03:59 Dextrose (Dextrose 50%) 50 ml STAT PRN IV Hypoglycemia 02/13/18 04:00 03/15/18 03:59 Diphenhydramine HCl (Benadryl) 25 mg Q6H PRN ORAL Itching 02/13/18 04:15 03/15/18 04:14 Docusate Sodium (Colace) 100 mg THREE TIMES A DAY ORAL 02/13/18 18:00 03/15/18 17:59 02/16/18 18:17 Doxycycline Monohydrate (Vibramycin) 100 mg EVERY 12 HOURS ORAL 02/16/18 09:00 02/23/18 08:59 02/16/18 21:00 Guaifenesin (Robitussin) 200 mg Q4H PRN ORAL For Cough 02/13/18 04:15 03/15/18 04:14 Hydroxyzine HCl (Atarax) 25 mg Q6HR PRN ORAL Itching 02/13/18 04:15 03/15/18 04:14 Insulin Aspart (NovoLOG) BEFORE MEALS AND HS SUBQ 02/13/18 06:30 03/15/18 06:29 02/16/18 21:01 Insulin Detemir (Levemir) 5 units DAILY SUBQ 02/13/18 09:00 03/15/18 08:59 02/16/18 09:00 Lidocaine (Lidoderm 5% PATCH) 1 patch EVERY 12 HOURS PRN TDERMAL For Pain 02/13/18 04:15 03/15/18 04:14 Lisinopril (Zestril) 2.5 mg BID ORAL 02/16/18 09:30 03/18/18 09:29 02/16/18 18:17 Nitroglycerin (Nitro-Bid) 0.5 inch EVERY 6 HOURS TOPIC 02/16/18 00:00 03/18/18 00:00 02/16/18 18:17 Pantoprazole (Protonix) 40 mg EVERY 12 HOURS ORAL 02/13/18 21:00 03/15/18 20:59 02/16/18 08:19 Promethazine HCl/ Codeine (Phenergan with Codeine) 5 ml Q4H PRN ORAL For Cough 02/13/18 12:45 03/15/18 12:44 Quetiapine Fumarate (SEROquel) 25 mg DAILYPRN PRN ORAL PRIOR TO HD SESSIONS ONLY 02/13/18 08:45 03/15/18 08:44 Sevelamer Carbonate (Renvela) 1,600 mg THREE TIMES A DAY ORAL 02/13/18 18:00 03/15/18 08:59 02/16/18 18:18 Tramadol HCl (Ultram) 25 mg Q6H PRN ORAL Moderate Pain (Pain Scale 4-6) 02/13/18 07:00 02/20/18 06:59 02/15/18 01:33 Vitamin B Complex/ Vit C/Folic Acid (Nephrovite) 1 tab DAILY ORAL 02/13/18 09:00 03/15/18 08:59 02/16/18 08:19 Get Joyce MD Feb 16, 2018 22:27
[2018-02-17] VITALS: BP 150/77
[2018-02-17 04:00] VITALS: BP 150/73
[2018-02-17] MEDS: Nitroglycerin 2% oint pkt TOPIC SCH ×5 (06:00→23:13)
[2018-02-17] MEDS: NovoLOG Insulin Flexpen SUBQ SCH ×5 (06:30→20:01)
[2018-02-17 08:00] VITALS: BP 130/56
[2018-02-17 08:18] LABS: BASOPHILS % (AUTO) 0.5 % (0.0-2.0); EOSINOPHILS % (AUTO) 1.1 % (0.0-3.0); HEMATOCRIT 36.5 % (37.0-47.0); HEMOGLOBIN 12.3 G/DL (12.0-16.0); LYMPHOCYTES % (AUTO) 12.9 % (20.0-45.0); MEAN CORPUSCULAR VOLUME 103 FL (80-99); MONOCYTES % (AUTO) 6.7 % (1.0-10.0); NEUTROPHILS % (AUTO) 78.8 % (45.0-75.0); PLATELET COUNT 116 K/UL (150-450); RED BLOOD COUNT 3.53 M/UL (4.20-5.40); RED CELL DISTRIBUTION WIDTH 15.9 % (11.6-14.8); WHITE BLOOD COUNT 6.9 K/UL (4.8-10.8)
[2018-02-17] MEDS: Benzonatate 100mg Perles ORAL SCH ×3 (08:44→18:00)
[2018-02-17] MEDS: traMADol 50mg tab ORAL PRN (08:44)
[2018-02-17] MEDS: Nephrovite tab (Rena-Vite) ORAL SCH (08:44)
[2018-02-17] MEDS: Lisinopril 2.5mg tab ORAL SCH ×3 (08:45→18:00)
[2018-02-17] MEDS: Docusate 100mg cap ORAL SCH ×3 (08:45→18:00)
[2018-02-17] MEDS: Renvela 800mg Pkt ORAL SCH ×4 (08:45→18:00)
[2018-02-17] MEDS: Levemir Flexpen SUBQ SCH (08:49)
[2018-02-17 08:59] LABS: ALANINE AMINOTRANSFERASE 15 U/L (12-78); ALBUMIN 2.5 G/DL (3.4-5.0); ALBUMIN/GLOBULIN RATIO 0.5 (1.0-2.7); ALKALINE PHOSPHATASE 114 U/L (46-116); ANION GAP 7 mmol/L (5-15); ASPARTATE AMINO TRANSFERASE 30 U/L (15-37); BILIRUBIN,TOTAL 1.2 MG/DL (0.2-1.0); BLOOD UREA NITROGEN 51 mg/dL (7-18); CALCIUM 7.4 MG/DL (8.5-10.1); CARBON DIOXIDE 33 MMOL/L (21-32); CHLORIDE 92 MMOL/L (98-107); CREATININE 5.1 MG/DL (0.55-1.30); GAMMA GLUTAMYL TRANSPEPTIDASE 65 U/L (5-85); PHOSPHORUS 3.9 MG/DL (2.5-4.9); SODIUM 132 MMOL/L (136-145)
[2018-02-17 09:00] LABS: BILIRUBIN,DIRECT 0.4 MG/DL (0.0-0.3)
--- NOTE | 2018-02-17 10:15 | Internal Med Progress Note ---
Subjective Physician Name Nas Garcia Attending Physician Nas Garcia MD Current Medications Medications (Trade) Dose Ordered Sig/Finn Route PRN Reason Start Time Stop Time Status Last Admin Dose Admin Albuterol/ Ipratropium (Albuterol/ Ipratropium) 3 ml EVERY 4 HOURS PRN HHN Shortness of Breath 02/13/18 12:45 02/18/18 12:44 Atorvastatin Calcium (Lipitor) 80 mg BEDTIME ORAL 02/13/18 21:00 03/15/18 20:59 02/13/18 21:20 Benzonatate (Tessalon Perles) 100 mg THREE TIMES A DAY ORAL 02/13/18 09:00 03/15/18 08:59 02/17/18 08:44 Bisacodyl (Dulcolax) 10 mg EVERY 6 HOURS PRN RECTAL Constipation 02/13/18 04:15 03/15/18 04:14 02/16/18 17:00 Clopidogrel Bisulfate (Plavix) 75 mg DAILY ORAL 02/13/18 09:00 03/15/18 08:59 02/17/18 08:45 Dextrose (Dextrose 50%) 25 ml STAT PRN IV Hypoglycemia 02/13/18 04:00 03/15/18 03:59 Dextrose (Dextrose 50%) 50 ml STAT PRN IV Hypoglycemia 02/13/18 04:00 03/15/18 03:59 Diphenhydramine HCl (Benadryl) 25 mg Q6H PRN ORAL Itching 02/13/18 04:15 03/15/18 04:14 Docusate Sodium (Colace) 100 mg THREE TIMES A DAY ORAL 02/13/18 18:00 03/15/18 17:59 02/17/18 08:45 Doxycycline Monohydrate (Vibramycin) 100 mg EVERY 12 HOURS ORAL 02/16/18 09:00 02/23/18 08:59 02/17/18 08:44 Guaifenesin (Robitussin) 200 mg Q4H PRN ORAL For Cough 02/13/18 04:15 03/15/18 04:14 Hydroxyzine HCl (Atarax) 25 mg Q6HR PRN ORAL Itching 02/13/18 04:15 03/15/18 04:14 Insulin Aspart (NovoLOG) BEFORE MEALS AND HS SUBQ 4/25/18 06:30 03/15/18 06:29 02/16/18 21:01 Insulin Detemir (Levemir) 5 units DAILY SUBQ 02/13/18 09:00 03/15/18 08:59 02/16/18 09:00 Lidocaine (Lidoderm 5% PATCH) 1 patch EVERY 12 HOURS PRN TDERMAL For Pain 02/13/18 04:15 03/15/18 04:14 Lisinopril (Zestril) 2.5 mg BID ORAL 02/16/18 09:30 03/18/18 09:29 02/16/18 18:17 Nitroglycerin (Nitro-Bid) 0.5 inch EVERY 6 HOURS TOPIC 02/16/18 00:00 03/18/18 00:00 02/16/18 18:17 Pantoprazole (Protonix) 40 mg EVERY 12 HOURS ORAL 02/13/18 21:00 03/15/18 20:59 02/17/18 08:45 Promethazine HCl/ Codeine (Phenergan with Codeine) 5 ml Q4H PRN ORAL For Cough 02/13/18 12:45 03/15/18 12:44 Quetiapine Fumarate (SEROquel) 25 mg DAILYPRN PRN ORAL PRIOR TO HD SESSIONS ONLY 02/13/18 08:45 03/15/18 08:44 Sevelamer Carbonate (Renvela) 1,600 mg THREE TIMES A DAY ORAL 02/13/18 18:00 03/15/18 08:59 02/16/18 18:18 Tramadol HCl (Ultram) 25 mg Q6H PRN ORAL Moderate Pain (Pain Scale 4-6) 02/13/18 07:00 02/20/18 06:59 02/17/18 08:44 Vitamin B Complex/ Vit C/Folic Acid (Nephrovite) 1 tab DAILY ORAL 02/13/18 09:00 03/15/18 08:59 02/17/18 08:44 Allergies: Coded Allergies: OLMESARTAN (Verified Allergy, Mild, 01/18/14) SWOOLEN BODY DRONABINOL (Verified Allergy, Unknown, 02/13/18) HEPARIN (Verified Adverse Reaction, Severe, 01/18/14) TOLD SONS RE ICB NOV THAT PATIENT CANNOT HAVE HEPARIN. Subjective awake, alert, responsive, NAD, feeling good, sitting up at bedside, Troponin 2.994 (decreasing) Objective Last Vital Signs Date Time Temp Pulse Resp B/P (MAP) Pulse Ox O2 Delivery O2 Flow Rate FiO2 02/17/18 08:46 130/56 02/17/18 08:00 97.2 77 18 97 Room Air 97.2 02/16/18 19:16 21 02/14/18 16:48 2.0 Laboratory Tests Test 02/17/18 06:40 White Blood Count 6.9 K/UL (4.8-10.8) Red Blood Count 3.53 M/UL (4.20-5.40) L Hemoglobin 12.3 G/DL (12.0-16.0) Hematocrit 36.5 % (37.0-47.0) L Mean Corpuscular Volume 103 FL (80-99) H Mean Corpuscular Hemoglobin 34.8 PG (27.0-31.0) H Mean Corpuscular Hemoglobin Concent 33.7 G/DL (32.0-36.0) Red Cell Distribution Width 15.9 % (11.6-14.8) H Platelet Count 116 K/UL (150-450) L Mean Platelet Volume 8.3 FL (6.5-10.1) Neutrophils (%) (Auto) 78.8 % (45.0-75.0) H Lymphocytes (%) (Auto) 12.9 % (20.0-45.0) L Monocytes (%) (Auto) 6.7 % (1.0-10.0) Eosinophils (%) (Auto) 1.1 % (0.0-3.0) Basophils (%) (Auto) 0.5 % (0.0-2.0) Sodium Level 132 MMOL/L (136-145) L Potassium Level 4.0 MMOL/L (3.5-5.1) Chloride Level 92 MMOL/L (98-107) L Carbon Dioxide Level 33 MMOL/L (21-32) H Anion Gap 7 mmol/L (5-15) Blood Urea Nitrogen 51 mg/dL (7-18) H Creatinine 5.1 MG/DL (0.55-1.30) H Estimat Glomerular Filtration Rate mL/min (>60) Glucose Level 123 MG/DL (74-106) H Uric Acid 4.9 MG/DL (2.6-7.2) Calcium Level 7.4 MG/DL (8.5-10.1) L Phosphorus Level 3.9 MG/DL (2.5-4.9) Magnesium Level 2.1 MG/DL (1.8-2.4) Total Bilirubin 1.2 MG/DL (0.2-1.0) H Direct Bilirubin 0.4 MG/DL (0.0-0.3) H Gamma Glutamyl Transpeptidase 65 U/L (5-85) Aspartate Amino Transf (AST/SGOT) 30 U/L (15-37) Alanine Aminotransferase (ALT/SGPT) 15 U/L (12-78) Alkaline Phosphatase 114 U/L (46-116) Troponin I 2.994 ng/mL (0.000-0.056) Total Protein 8.0 G/DL (6.4-8.2) Albumin 2.5 G/DL (3.4-5.0) L Globulin 5.5 g/dL Albumin/Globulin Ratio 0.5 (1.0-2.7) L Intake and Output 02/16/18 02/17/18 19:00 07:00 Intake Total 480 ml Balance 480 ml Intake Oral 480 ml # Voids 2 # Bowel Movements 1 2 Objective General: No acute distress, awake and alert HEENT: NCAT, sclera anicteric, PERRL, EOMI. Neck: Supple, no significant jugular venous distention, Lungs: Fair inspiratory effort, clear to auscultation bilaterally, no Wheeze or Rales. Heart: Regular rate and rhythm, normal S1/S2, no murmur Abdomen: soft, nontender, nondistended. Normoactive bowel sounds. Extremities: No Cyanosis , clubbing, + 1 edema. Muscle atrophy. left UE AVF. Neuro: A&O x 3, Able to move all extremities Skin: warm, no rashes, Right toe gangrene toe. Assessment/Plan Assessment/Plan Dyspnea- 2ry to CHF exacerbation ACS- NSTEMI ESRD on HD TThS DM2 HLD CVA/ICH 2013 s/p craniotomy s/p L hip replacement 2016 CHF/ICM s/p PPM 2017 CAD/NSTEMI s/p stent Severe PAD / PVD w/ ulcers on R dorman and gangrenous toe moderate to severe aortic stenosis. Moderate mitral regurgitation. Moderate to severe pulmonary hypertension. Plan: Dialysis on Sunday Monitor labs and culture PT Mobility Full code SCD Abx: Vanco IV DC to SNF soon 2D Echo: Normal left ventricular chamber size. Global left ventricular hypokinesis. Left ventricular ejection fraction estimated to be 40 %. Mild left ventricular hypertrophy. No evidence of pericardial effusion. Moderate left atrial enlargement. Mild right atrial enlargement. Right ventricular chamber size is within normal limits. Aortic valve calcification with decreased cusp excursion c/w aortic stenosis. Moderately thickened mitral valve leaflets with normal excursion. Heavy mitral annulus and aortic root calcification. Normal pulmonic valve structure. Normal tricuspid valve structure. IVC dilated at 2.2 cm with slight physiologic collapse suggestive of increased RA pressure. A color flow and spectral Doppler study was performed and revealed: Moderate aortic regurgitation. Peak aortic valve gradient of 45 mm Hg and a mean of 22 mmHg. Aortic valve area 0.9 cm2 calculated by continuity equation suggestive of moderate to severe aortic stenosis. Moderate mitral regurgitation. Mitral inflow velocities indicates possible pseudo normalization pattern implying moderately elevated left atrial pressure (Grade II ) Moderate to severe tricuspid regurgitation. Tricuspid systolic velocities suggests peak right ventricular systolic pressure of 56 mmHg, consistent with moderate to severe pulmonary hypertension. Moderate pulmonic regurgitation present. Nas Garcia MD Feb 17, 2018 10:15
[2018-02-17 12:00] VITALS: BP 118/66
--- NOTE | 2018-02-17 12:34 | Nephrology Progress Note ---
Assessment/Plan Problem List: (1) ESRD (end stage renal disease) on dialysis (2) Elevated troponin (3) Congestive heart failure (CHF) (4) Diabetes mellitus Assessment admitted with CP and high Trop I ESRD left arm fistula HTN s/p Craniotomy DM2 HypoAlbuminemia Pulm HTN h/o SDH Anemia CHF Diastolic Pacer TR Plan Plan: Adjust BP meds, fluid challenged Echo: Noted Phos binders- Gastric support Per orders HD 02/14 done, nexr planned HD 02/18 or earlier if needed Hold Cincalcet / Sensipar for low Ca Subjective ROS Limited/Unobtainable: No Constitutional: Reports: malaise Objective Objective Last 24 Hour Vital Signs Date Time Temp Pulse Resp B/P (MAP) Pulse Ox O2 Delivery O2 Flow Rate FiO2 02/17/18 12:00 97.9 78 18 118/66 98 Room Air 97.9 02/17/18 12:00 118/66 02/17/18 08:46 130/56 02/17/18 08:00 77 02/17/18 08:00 97.2 77 18 130/56 97 Room Air 97.2 02/17/18 06:00 150/73 02/17/18 04:00 97.2 82 15 150/73 97 Room Air 97.2 02/17/18 00:00 132/70 02/17/18 00:00 97.6 86 16 150/77 98 Room Air 97.6 02/16/18 20:00 83 02/16/18 20:00 97.3 80 16 149/66 98 Room Air 97.3 02/16/18 19:16 89 18 Room Air 21 02/16/18 18:17 132/70 02/16/18 18:17 132/70 02/16/18 16:00 97.2 78 19 132/70 95 Room Air 97.2 Intake and Output 02/16/18 02/17/18 19:00 07:00 Intake Total 480 ml Balance 480 ml Intake Oral 480 ml # Voids 2 # Bowel Movements 1 2 Laboratory Tests 02/17/18 06:40: White Blood Count 6.9, Red Blood Count 3.53L, Hemoglobin 12.3, Hematocrit 36.5L , Mean Corpuscular Volume 103H, Mean Corpuscular Hemoglobin 34.8H, Mean Corpuscular Hemoglobin Concent 33.7, Red Cell Distribution Width 15.9H, Platelet Count 116L, Mean Platelet Volume 8.3, Neutrophils (%) (Auto) 78.8H, Lymphocytes (%) (Auto) 12.9L, Monocytes (%) (Auto) 6.7, Eosinophils (%) (Auto) 1.1, Basophils (%) (Auto) 0.5, Sodium Level 132L, Potassium Level 4.0, Chloride Level 92L, Carbon Dioxide Level 33H, Anion Gap 7, Blood Urea Nitrogen 51H, Creatinine 5.1H, Estimat Glomerular Filtration Rate , Glucose Level 123H, Uric Acid 4.9, Calcium Level 7.4L, Phosphorus Level 3.9, Magnesium Level 2.1, Total Bilirubin 1.2H, Direct Bilirubin 0.4H, Gamma Glutamyl Transpeptidase 65, Aspartate Amino Transf (AST/SGOT) 30, Alanine Aminotransferase (ALT/SGPT) 15, Alkaline Phosphatase 114, Troponin I 2.994H, Total Protein 8.0, Albumin 2.5L, Globulin 5.5, Albumin/Globulin Ratio 0.5L Height (Feet): 5 Height (Inches): 2.00 Weight (Pounds): 87 General Appearance: no apparent distress Cardiovascular: normal rate Respiratory/Chest: decreased breath sounds Abdomen: soft Objective no change ARLET NINO Feb 17, 2018 12:34
[2018-02-17 16:00] VITALS: BP 119/71
--- NOTE | 2018-02-17 17:05 | Pulmonology Progress Note ---
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 Objective Last 24 Hour Vital Signs Date Time Temp Pulse Resp B/P (MAP) Pulse Ox O2 Delivery O2 Flow Rate FiO2 02/17/18 16:00 97.9 81 17 119/71 95 Room Air 97.9 02/17/18 12:20 83 22 Room Air 21 02/17/18 12:00 97.9 78 18 118/66 98 Room Air 97.9 02/17/18 12:00 118/66 02/17/18 08:46 130/56 02/17/18 08:00 77 02/17/18 08:00 97.2 77 18 130/56 97 Room Air 97.2 02/17/18 06:00 150/73 02/17/18 04:00 97.2 82 15 150/73 97 Room Air 97.2 02/17/18 00:00 132/70 02/17/18 00:00 97.6 86 16 150/77 98 Room Air 97.6 02/16/18 20:00 83 02/16/18 20:00 97.3 80 16 149/66 98 Room Air 97.3 02/16/18 19:16 89 18 Room Air 21 02/16/18 18:17 132/70 02/16/18 18:17 132/70 Intake and Output 02/16/18 02/17/18 19:00 07:00 Intake Total 480 ml Balance 480 ml Intake Oral 480 ml # Voids 2 # Bowel Movements 1 2 Objective General Appearance: cachectic HEENT: normocephalic, atraumatic Respiratory/Chest: chest wall non-tender, + rhonchi Cardiovascular: normal peripheral pulses, normal rate, regular rhythm Abdomen: normal bowel sounds, soft, non tender, no organomegaly, non distended Extremities: no cyanosis, no clubbing, no edema Skin: right wrist 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 Laboratory Tests 02/17/18 06:40: White Blood Count 6.9, Red Blood Count 3.53L, Hemoglobin 12.3, Hematocrit 36.5L , Mean Corpuscular Volume 103H, Mean Corpuscular Hemoglobin 34.8H, Mean Corpuscular Hemoglobin Concent 33.7, Red Cell Distribution Width 15.9H, Platelet Count 116L, Mean Platelet Volume 8.3, Neutrophils (%) (Auto) 78.8H, Lymphocytes (%) (Auto) 12.9L, Monocytes (%) (Auto) 6.7, Eosinophils (%) (Auto) 1.1, Basophils (%) (Auto) 0.5, Sodium Level 132L, Potassium Level 4.0, Chloride Level 92L, Carbon Dioxide Level 33H, Anion Gap 7, Blood Urea Nitrogen 51H, Creatinine 5.1H, Estimat Glomerular Filtration Rate , Glucose Level 123H, Uric Acid 4.9, Calcium Level 7.4L, Phosphorus Level 3.9, Magnesium Level 2.1, Total Bilirubin 1.2H, Direct Bilirubin 0.4H, Gamma Glutamyl Transpeptidase 65, Aspartate Amino Transf (AST/SGOT) 30, Alanine Aminotransferase (ALT/SGPT) 15, Alkaline Phosphatase 114, Troponin I 2.994H, Total Protein 8.0, Albumin 2.5L, Globulin 5.5, Albumin/Globulin Ratio 0.5L Current Medications Medications (Trade) Dose Ordered Sig/Finn Route PRN Reason Start Time Stop Time Status Last Admin Dose Admin Albuterol/ Ipratropium (Albuterol/ Ipratropium) 3 ml EVERY 4 HOURS PRN HHN Shortness of Breath 02/13/18 12:45 02/18/18 12:44 Atorvastatin Calcium (Lipitor) 80 mg BEDTIME ORAL 02/13/18 21:00 5/25/18 20:59 02/13/18 21:20 Benzonatate (Tessalon Perles) 100 mg THREE TIMES A DAY ORAL 02/13/18 09:00 03/15/18 08:59 02/17/18 12:12 Bisacodyl (Dulcolax) 10 mg EVERY 6 HOURS PRN RECTAL Constipation 02/13/18 04:15 03/15/18 04:14 02/16/18 17:00 Clopidogrel Bisulfate (Plavix) 75 mg DAILY ORAL 02/13/18 09:00 03/15/18 08:59 02/17/18 08:45 Dextrose (Dextrose 50%) 25 ml STAT PRN IV Hypoglycemia 02/13/18 04:00 03/15/18 03:59 Dextrose (Dextrose 50%) 50 ml STAT PRN IV Hypoglycemia 02/13/18 04:00 03/15/18 03:59 Diphenhydramine HCl (Benadryl) 25 mg Q6H PRN ORAL Itching 02/13/18 04:15 03/15/18 04:14 Docusate Sodium (Colace) 100 mg THREE TIMES A DAY ORAL 02/13/18 18:00 03/15/18 17:59 02/17/18 12:13 Doxycycline Monohydrate (Vibramycin) 100 mg EVERY 12 HOURS ORAL 02/16/18 09:00 02/23/18 08:59 02/17/18 08:44 Guaifenesin (Robitussin) 200 mg Q4H PRN ORAL For Cough 02/13/18 04:15 03/15/18 04:14 Hydroxyzine HCl (Atarax) 25 mg Q6HR PRN ORAL Itching 02/13/18 04:15 03/15/18 04:14 Insulin Aspart (NovoLOG) BEFORE MEALS AND HS SUBQ 02/13/18 06:30 03/15/18 06:29 02/16/18 21:01 Insulin Detemir (Levemir) 5 units DAILY SUBQ 02/13/18 09:00 03/15/18 08:59 02/16/18 09:00 Lidocaine (Lidoderm 5% PATCH) 1 patch EVERY 12 HOURS PRN TDERMAL For Pain 02/13/18 04:15 03/15/18 04:14 Lisinopril (Zestril) 2.5 mg BID ORAL 02/16/18 09:30 03/18/18 09:29 02/16/18 18:17 Nitroglycerin (Nitro-Bid) 0.5 inch EVERY 6 HOURS TOPIC 02/16/18 00:00 03/18/18 00:00 02/16/18 18:17 Pantoprazole (Protonix) 40 mg EVERY 12 HOURS ORAL 02/13/18 21:00 03/15/18 20:59 02/17/18 08:45 Promethazine HCl/ Codeine (Phenergan with Codeine) 5 ml Q4H PRN ORAL For Cough 02/13/18 12:45 03/15/18 12:44 Quetiapine Fumarate (SEROquel) 25 mg DAILYPRN PRN ORAL PRIOR TO HD SESSIONS ONLY 02/13/18 08:45 03/15/18 08:44 Sevelamer Carbonate (Renvela) 1,600 mg THREE TIMES A DAY ORAL 02/13/18 18:00 03/15/18 08:59 02/16/18 18:18 Tramadol HCl (Ultram) 25 mg Q6H PRN ORAL Moderate Pain (Pain Scale 4-6) 02/13/18 07:00 02/20/18 06:59 02/17/18 08:44 Vitamin B Complex/ Vit C/Folic Acid (Nephrovite) 1 tab DAILY ORAL 02/13/18 09:00 03/15/18 08:59 02/17/18 08:44 Get Joyce MD Feb 17, 2018 17:05
--- NOTE | 2018-02-17 17:46 | Cardiology Report ---
APPROVED REPORT EKG Measurement Heart [id number] Normal sinus rhythm Left axis deviation Right bundle branch block Abnormal ECG
[2018-02-17 20:00] VITALS: BP 136/69
[2018-02-17] MEDS: Atorvastatin 80mg tab ORAL SCH (20:00)
--- NOTE | 2018-02-17 21:32 | Cardiology Progress Note ---
Assessment/Plan Assessment/Plan CMP elevated troponin severe renal disease at present time the patient is stable, no chest pain family is not present Subjective Subjective The patient is resting in bed, sleeping, arousable, family is not at the bedside Objective Last 24 Hour Vital Signs Date Time Temp Pulse Resp B/P (MAP) Pulse Ox O2 Delivery O2 Flow Rate FiO2 02/17/18 19:19 84 22 Room Air 21 02/17/18 18:00 119/71 02/17/18 18:00 119/71 02/17/18 16:00 97.9 81 17 119/71 95 Room Air 97.9 02/17/18 12:20 83 22 Room Air 21 02/17/18 12:00 97.9 78 18 118/66 98 Room Air 97.9 02/17/18 12:00 118/66 02/17/18 08:46 130/56 02/17/18 08:00 77 02/17/18 08:00 97.2 77 18 130/56 97 Room Air 97.2 02/17/18 06:00 150/73 02/17/18 04:00 97.2 82 15 150/73 97 Room Air 97.2 02/17/18 00:00 132/70 02/17/18 00:00 97.6 86 16 150/77 98 Room Air 97.6 General Appearance: other - chronically ill appearing and weak EENT: PERRL/EOMI Neck: JVD Rhythm: NSR Cardiovascular: normal rate Respiratory/Chest: crackles/rales Abdomen: non tender Extremities: other - erythema and sswelling of right hand Intake and Output 02/16/18 02/17/18 19:00 07:00 Intake Total 480 ml Balance 480 ml Intake Oral 480 ml # Voids 2 # Bowel Movements 1 2 Laboratory Tests Test 02/17/18 06:40 White Blood Count 6.9 K/UL (4.8-10.8) Red Blood Count 3.53 M/UL (4.20-5.40) L Hemoglobin 12.3 G/DL (12.0-16.0) Hematocrit 36.5 % (37.0-47.0) L Mean Corpuscular Volume 103 FL (80-99) H Mean Corpuscular Hemoglobin 34.8 PG (27.0-31.0) H Mean Corpuscular Hemoglobin Concent 33.7 G/DL (32.0-36.0) Red Cell Distribution Width 15.9 % (11.6-14.8) H Platelet Count 116 K/UL (150-450) L Mean Platelet Volume 8.3 FL (6.5-10.1) Neutrophils (%) (Auto) 78.8 % (45.0-75.0) H Lymphocytes (%) (Auto) 12.9 % (20.0-45.0) L Monocytes (%) (Auto) 6.7 % (1.0-10.0) Eosinophils (%) (Auto) 1.1 % (0.0-3.0) Basophils (%) (Auto) 0.5 % (0.0-2.0) Sodium Level 132 MMOL/L (136-145) L Potassium Level 4.0 MMOL/L (3.5-5.1) Chloride Level 92 MMOL/L (98-107) L Carbon Dioxide Level 33 MMOL/L (21-32) H Anion Gap 7 mmol/L (5-15) Blood Urea Nitrogen 51 mg/dL (7-18) H Creatinine 5.1 MG/DL (0.55-1.30) H Estimat Glomerular Filtration Rate mL/min (>60) Glucose Level 123 MG/DL (74-106) H Uric Acid 4.9 MG/DL (2.6-7.2) Calcium Level 7.4 MG/DL (8.5-10.1) L Phosphorus Level 3.9 MG/DL (2.5-4.9) Magnesium Level 2.1 MG/DL (1.8-2.4) Total Bilirubin 1.2 MG/DL (0.2-1.0) H Direct Bilirubin 0.4 MG/DL (0.0-0.3) H Gamma Glutamyl Transpeptidase 65 U/L (5-85) Aspartate Amino Transf (AST/SGOT) 30 U/L (15-37) Alanine Aminotransferase (ALT/SGPT) 15 U/L (12-78) Alkaline Phosphatase 114 U/L (46-116) Troponin I 2.994 ng/mL (0.000-0.056) Total Protein 8.0 G/DL (6.4-8.2) Albumin 2.5 G/DL (3.4-5.0) L Globulin 5.5 g/dL Albumin/Globulin Ratio 0.5 (1.0-2.7) L Natalie Jain MD Feb 17, 2018 21:32
[2018-02-18] VITALS: BP 125/75
[2018-02-18 04:00] VITALS: BP 120/75
[2018-02-18] MEDS: Nitroglycerin 2% oint pkt TOPIC SCH ×3 (05:16→18:00)
[2018-02-18] MEDS: NovoLOG Insulin Flexpen SUBQ SCH ×3 (05:32→16:30)
[2018-02-18 08:00] VITALS: BP 161/84
[2018-02-18] MEDS: Nephrovite tab (Rena-Vite) ORAL SCH (09:00)
[2018-02-18] MEDS: Benzonatate 100mg Perles ORAL SCH ×3 (09:00→18:00)
[2018-02-18] MEDS: Docusate 100mg cap ORAL SCH ×3 (09:00→18:00)
[2018-02-18] MEDS: Levemir Flexpen SUBQ SCH (09:00)
[2018-02-18] MEDS: Renvela 800mg Pkt ORAL SCH ×3 (09:00→18:00)
[2018-02-18] MEDS: Lisinopril 2.5mg tab ORAL SCH ×2 (09:00→18:00)
--- NOTE | 2018-02-18 11:06 | Internal Med Progress Note ---
Subjective Date of Service: Feb 18, 2018 Physician Name Victorino Merino Attending Physician Nas Garcia MD Current Medications Medications (Trade) Dose Ordered Sig/Finn Route PRN Reason Start Time Stop Time Status Last Admin Dose Admin Albuterol/ Ipratropium (Albuterol/ Ipratropium) 3 ml EVERY 4 HOURS PRN HHN Shortness of Breath 02/13/18 12:45 02/18/18 12:44 Atorvastatin Calcium (Lipitor) 80 mg BEDTIME ORAL 02/13/18 21:00 03/15/18 20:59 02/13/18 21:20 Benzonatate (Tessalon Perles) 100 mg THREE TIMES A DAY ORAL 02/13/18 09:00 03/15/18 08:59 02/17/18 12:12 Bisacodyl (Dulcolax) 10 mg EVERY 6 HOURS PRN RECTAL Constipation 02/13/18 04:15 03/15/18 04:14 02/16/18 17:00 Clopidogrel Bisulfate (Plavix) 75 mg DAILY ORAL 02/13/18 09:00 03/15/18 08:59 02/17/18 08:45 Dextrose (Dextrose 50%) 25 ml STAT PRN IV Hypoglycemia 02/13/18 04:00 03/15/18 03:59 Dextrose (Dextrose 50%) 50 ml STAT PRN IV Hypoglycemia 02/13/18 04:00 03/15/18 03:59 Diphenhydramine HCl (Benadryl) 25 mg Q6H PRN ORAL Itching 02/13/18 04:15 03/15/18 04:14 Docusate Sodium (Colace) 100 mg THREE TIMES A DAY ORAL 02/13/18 18:00 03/15/18 17:59 02/17/18 12:13 Doxycycline Monohydrate (Vibramycin) 100 mg EVERY 12 HOURS ORAL 02/16/18 09:00 02/23/18 08:59 02/17/18 08:44 Guaifenesin (Robitussin) 200 mg Q4H PRN ORAL For Cough 02/13/18 04:15 03/15/18 04:14 Hydroxyzine HCl (Atarax) 25 mg Q6HR PRN ORAL Itching 02/13/18 04:15 03/15/18 04:14 Insulin Aspart (NovoLOG) BEFORE MEALS AND HS SUBQ 02/13/18 06:30 03/15/18 06:29 02/16/18 21:01 Insulin Detemir (Levemir) 5 units DAILY SUBQ 02/13/18 09:00 03/15/18 08:59 02/16/18 09:00 Lidocaine (Lidoderm 5% PATCH) 1 patch EVERY 12 HOURS PRN TDERMAL For Pain 02/13/18 04:15 03/15/18 04:14 Lisinopril (Zestril) 2.5 mg BID ORAL 02/16/18 09:30 03/18/18 09:29 02/16/18 18:17 Nitroglycerin (Nitro-Bid) 0.5 inch EVERY 6 HOURS TOPIC 02/16/18 00:00 03/18/18 00:00 02/16/18 18:17 Pantoprazole (Protonix) 40 mg EVERY 12 HOURS ORAL 02/13/18 21:00 03/15/18 20:59 02/17/18 08:45 Promethazine HCl/ Codeine (Phenergan with Codeine) 5 ml Q4H PRN ORAL For Cough 02/13/18 12:45 03/15/18 12:44 Quetiapine Fumarate (SEROquel) 25 mg DAILYPRN PRN ORAL PRIOR TO HD SESSIONS ONLY 02/13/18 08:45 03/15/18 08:44 Sevelamer Carbonate (Renvela) 1,600 mg THREE TIMES A DAY ORAL 02/13/18 18:00 03/15/18 08:59 02/16/18 18:18 Tramadol HCl (Ultram) 25 mg Q6H PRN ORAL Moderate Pain (Pain Scale 4-6) 02/13/18 07:00 02/20/18 06:59 02/17/18 08:44 Vitamin B Complex/ Vit C/Folic Acid (Nephrovite) 1 tab DAILY ORAL 02/13/18 09:00 03/15/18 08:59 02/17/18 08:44 Allergies: Coded Allergies: OLMESARTAN (Verified Allergy, Mild, 01/18/14) SWOOLEN BODY DRONABINOL (Verified Allergy, Unknown, 02/13/18) HEPARIN (Verified Adverse Reaction, Severe, 01/18/14) TOLD SONS RE ICB NOV THAT PATIENT CANNOT HAVE HEPARIN. ROS Limited/Unobtainable: No Constitutional: Reports: no symptoms HEENT: Reports: no symptoms Cardiovascular: Reports: no symptoms Respiratory: Reports: shortness of breath Gastrointestinal/Abdominal: Reports: no symptoms Genitourinary: Reports: no symptoms Neurologic/Psychiatric: Reports: no symptoms Subjective 77 YO F admitted with chest pain. Now CHF. Await hemodialysis today. Cover for Int Med-Dr Garcia. Objective Last Vital Signs Date Time Temp Pulse Resp B/P (MAP) Pulse Ox O2 Delivery O2 Flow Rate FiO2 02/18/18 09:00 161/84 02/18/18 08:00 97.4 76 18 96 Room Air 97.4 02/18/18 07:53 21 02/14/18 16:48 2.0 General Appearance: WD/WN, no apparent distress, alert EENT: PERRL/EOMI, normal ENT inspection, TMs normal Neck: non-tender, normal alignment, supple, normal inspection Cardiovascular: normal peripheral pulses, normal rate, regular rhythm, no gallop/murmur, no JVD Respiratory/Chest: chest wall non-tender, lungs clear, normal breath sounds, no respiratory distress, no accessory muscle use Abdomen: normal bowel sounds, non tender, soft, no organomegaly, no mass Extremities: normal range of motion, non-tender 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 (6) Cardiomyopathy (7) Chest pain (8) Congestive heart failure (CHF) (9) Elevated troponin (10) ESRD (end stage renal disease) on dialysis Assessment & Plan: Hemodialysis today-see nephrology note. (11) Diabetes mellitus (12) PVD (peripheral vascular disease) (13) Hypercholesteremia Assessment & Plan: Continue lipitor Status: progressing Assessment/Plan Discharge planning: VICTORINO Jimenez Feb 18, 2018 11:06
[2018-02-18 12:00] VITALS: BP 140/64
--- NOTE | 2018-02-18 12:08 | Pulmonology Progress Note ---
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 Objective Last 24 Hour Vital Signs Date Time Temp Pulse Resp B/P (MAP) Pulse Ox O2 Delivery O2 Flow Rate FiO2 02/18/18 09:00 161/84 02/18/18 08:00 97.4 76 18 161/84 96 Room Air 97.4 02/18/18 07:53 74 22 Room Air 21 02/18/18 05:16 122/76 02/18/18 04:00 97.0 89 20 120/75 97 Room Air 97.0 02/18/18 00:00 97.0 83 20 125/75 97 Room Air 97.0 02/17/18 23:13 132/71 02/17/18 20:00 98.2 84 20 136/69 98 Room Air 98.2 02/17/18 19:19 84 22 Room Air 21 02/17/18 18:00 119/71 02/17/18 18:00 119/71 02/17/18 16:00 97.9 81 17 119/71 95 Room Air 97.9 02/17/18 12:20 83 22 Room Air 21 Intake and Output 02/17/18 02/18/18 19:00 07:00 Intake Total 550 ml Balance 550 ml Other 550 ml # Voids 1 2 # Bowel Movements 2 Objective General Appearance: cachectic HEENT: normocephalic, atraumatic Respiratory/Chest: chest wall non-tender, + rhonchi Cardiovascular: normal peripheral pulses, normal rate, regular rhythm Abdomen: normal bowel sounds, soft, non tender, no organomegaly, non distended Extremities: no cyanosis, no clubbing, no edema Skin: right wrist 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 Current Medications Medications (Trade) Dose Ordered Sig/Finn Route PRN Reason Start Time Stop Time Status Last Admin Dose Admin Albuterol/ Ipratropium (Albuterol/ Ipratropium) 3 ml EVERY 4 HOURS PRN HHN Shortness of Breath 02/13/18 12:45 02/18/18 12:44 Atorvastatin Calcium (Lipitor) 80 mg BEDTIME ORAL 02/13/18 21:00 03/15/18 20:59 02/13/18 21:20 Benzonatate (Tessalon Perles) 100 mg THREE TIMES A DAY ORAL 02/13/18 09:00 03/15/18 08:59 02/17/18 12:12 Bisacodyl (Dulcolax) 10 mg EVERY 6 HOURS PRN RECTAL Constipation 02/13/18 04:15 03/15/18 04:14 02/16/18 17:00 Clopidogrel Bisulfate (Plavix) 75 mg DAILY ORAL 02/13/18 09:00 03/15/18 08:59 02/17/18 08:45 Dextrose (Dextrose 50%) 25 ml STAT PRN IV Hypoglycemia 02/13/18 04:00 03/15/18 03:59 Dextrose (Dextrose 50%) 50 ml STAT PRN IV Hypoglycemia 02/13/18 04:00 03/15/18 03:59 Diphenhydramine HCl (Benadryl) 25 mg Q6H PRN ORAL Itching 02/13/18 04:15 03/15/18 04:14 Docusate Sodium (Colace) 100 mg THREE TIMES A DAY ORAL 02/13/18 18:00 03/15/18 17:59 02/17/18 12:13 Doxycycline Monohydrate (Vibramycin) 100 mg EVERY 12 HOURS ORAL 02/16/18 09:00 02/23/18 08:59 02/17/18 08:44 Guaifenesin (Robitussin) 200 mg Q4H PRN ORAL For Cough 02/13/18 04:15 5/25/18 04:14 Hydroxyzine HCl (Atarax) 25 mg Q6HR PRN ORAL Itching 02/13/18 04:15 03/15/18 04:14 Insulin Aspart (NovoLOG) BEFORE MEALS AND HS SUBQ 02/13/18 06:30 03/15/18 06:29 02/16/18 21:01 Insulin Detemir (Levemir) 5 units DAILY SUBQ 02/13/18 09:00 03/15/18 08:59 02/16/18 09:00 Lidocaine (Lidoderm 5% PATCH) 1 patch EVERY 12 HOURS PRN TDERMAL For Pain 02/13/18 04:15 03/15/18 04:14 Lisinopril (Zestril) 2.5 mg BID ORAL 02/16/18 09:30 03/18/18 09:29 02/16/18 18:17 Nitroglycerin (Nitro-Bid) 0.5 inch EVERY 6 HOURS TOPIC 02/16/18 00:00 03/18/18 00:00 02/16/18 18:17 Pantoprazole (Protonix) 40 mg EVERY 12 HOURS ORAL 02/13/18 21:00 03/15/18 20:59 02/17/18 08:45 Promethazine HCl/ Codeine (Phenergan with Codeine) 5 ml Q4H PRN ORAL For Cough 02/13/18 12:45 03/15/18 12:44 Quetiapine Fumarate (SEROquel) 25 mg DAILYPRN PRN ORAL PRIOR TO HD SESSIONS ONLY 02/13/18 08:45 03/15/18 08:44 Sevelamer Carbonate (Renvela) 1,600 mg THREE TIMES A DAY ORAL 02/13/18 18:00 03/15/18 08:59 02/16/18 18:18 Tramadol HCl (Ultram) 25 mg Q6H PRN ORAL Moderate Pain (Pain Scale 4-6) 02/13/18 07:00 02/20/18 06:59 02/17/18 08:44 Vitamin B Complex/ Vit C/Folic Acid (Nephrovite) 1 tab DAILY ORAL 02/13/18 09:00 03/15/18 08:59 02/17/18 08:44 Get Joyce MD Feb 18, 2018 12:08
--- NOTE | 2018-02-18 12:32 | Nephrology Progress Note ---
Assessment/Plan Problem List: (1) ESRD (end stage renal disease) on dialysis (2) Elevated troponin (3) Congestive heart failure (CHF) (4) Diabetes mellitus Assessment admitted with CP and high Trop I refused HD yesterday and today ESRD left arm fistula HTN s/p Craniotomy DM2 HypoAlbuminemia Pulm HTN h/o SDH Anemia CHF Diastolic Pacer TR Plan Plan: per Psych- refuses HD Adjust BP meds, fluid challenged Echo: Noted Phos binders- Gastric support Per orders HD 02/14 done, nexr planned HD 02/18 or earlier if needed Hold Cincalcet / Sensipar for low Ca Subjective ROS Limited/Unobtainable: No Constitutional: Reports: malaise, weakness Objective Objective Last 24 Hour Vital Signs Date Time Temp Pulse Resp B/P (MAP) Pulse Ox O2 Delivery O2 Flow Rate FiO2 02/18/18 09:00 161/84 02/18/18 08:00 97.4 76 18 161/84 96 Room Air 97.4 02/18/18 07:53 74 22 Room Air 21 02/18/18 05:16 122/76 02/18/18 04:00 97.0 89 20 120/75 97 Room Air 97.0 02/18/18 00:00 97.0 83 20 125/75 97 Room Air 97.0 02/17/18 23:13 132/71 02/17/18 20:00 98.2 84 20 136/69 98 Room Air 98.2 02/17/18 19:19 84 22 Room Air 21 02/17/18 18:00 119/71 02/17/18 18:00 119/71 02/17/18 16:00 97.9 81 17 119/71 95 Room Air 97.9 Intake and Output 02/17/18 02/18/18 19:00 07:00 Intake Total 550 ml Balance 550 ml Other 550 ml # Voids 1 2 # Bowel Movements 2 Height (Feet): 5 Height (Inches): 2.00 Weight (Pounds): 87 General Appearance: no apparent distress Respiratory/Chest: decreased breath sounds Abdomen: distended Objective no change ARLET NINO Feb 18, 2018 12:32
--- NOTE | 2018-02-18 15:37 | General Progress Note ---
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 Subjective the pt was confused Objective Last 24 Hour Vital Signs Date Time Temp Pulse Resp B/P (MAP) Pulse Ox O2 Delivery O2 Flow Rate FiO2 02/18/18 12:45 Room Air 2.0 21 02/18/18 12:00 97.4 80 18 140/64 99 Room Air 97.4 02/18/18 12:00 140/64 02/18/18 09:00 161/84 02/18/18 08:00 97.4 76 18 161/84 96 Room Air 97.4 02/18/18 07:53 74 22 Room Air 21 02/18/18 05:16 122/76 02/18/18 04:00 97.0 89 20 120/75 97 Room Air 97.0 02/18/18 00:00 97.0 83 20 125/75 97 Room Air 97.0 02/17/18 23:13 132/71 02/17/18 20:00 98.2 84 20 136/69 98 Room Air 98.2 02/17/18 19:19 84 22 Room Air 21 02/17/18 18:00 119/71 02/17/18 18:00 119/71 02/17/18 16:00 97.9 81 17 119/71 95 Room Air 97.9 Intake and Output 02/17/18 02/18/18 19:00 07:00 Intake Total 550 ml Balance 550 ml Other 550 ml # Voids 1 2 # Bowel Movements 2 Height (Feet): 5 Height (Inches): 2.00 Weight (Pounds): 87 General Appearance: no apparent distress, alert, confused, agitated Cosmo Smith M.D. Feb 18, 2018 15:37
[2018-02-18 16:00] VITALS: BP 153/86
--- NOTE | 2018-02-18 16:16 | Infectious Diseases Prog Note ---
Assessment/Plan Assessment/Plan Assessment: Afebrile, no leukocytosis Dyspnea- 2ry to CHF exacerbation; no PNA -CXR: Cardiomegaly and mild interstitial opacification/edema. Linear opacity in the left midlung likely related to subsegmental atelectasis or scarring. Troponinemia- ?NSTEMI I vs II MACY R wirst abrasion with mild surrounding cellulitis- refusing PO Abx -wound cx : MSSA ESRD on HD TThS L AVG and R chest permacath DM2 HLD CVA/ICH 2014 s/p craniotomy s/p L hip replacement 2016 CHF/ICM s/p PPM 2016 CAD/NSTEMI s/p stent PVD w/ ulcers on R dorman and gangrenous toe [facility] resident Plan: - PO Doxycycline 100mg bid ( d# 4 /5 )for MSSA cellulitis R wrist - 02/15 SP IV Vancomycin d# 1 -02/13 SP Levaquin #1 -f/u cx -Monitor CBC/BMP, temperatures -cards, renal f/u -aspiration precautions Subjective Allergies: Coded Allergies: OLMESARTAN (Verified Allergy, Mild, 01/18/14) SWOOLEN BODY DRONABINOL (Verified Allergy, Unknown, 02/13/18) HEPARIN (Verified Adverse Reaction, Severe, 01/18/14) TOLD SONS RE B NOV THAT PATIENT CANNOT HAVE HEPARIN. Subjective afebrile no leukocytosis At RA Objective Vital Signs Last 24 Hour Vital Signs Date Time Temp Pulse Resp B/P (MAP) Pulse Ox O2 Delivery O2 Flow Rate FiO2 02/18/18 16:07 Room Air 2.0 21 02/18/18 12:45 Room Air 2.0 21 02/18/18 12:00 97.4 80 18 140/64 99 Room Air 97.4 02/18/18 12:00 140/64 02/18/18 09:00 161/84 02/18/18 08:00 97.4 76 18 161/84 96 Room Air 97.4 02/18/18 07:53 74 22 Room Air 21 02/18/18 05:16 122/76 02/18/18 04:00 97.0 89 20 120/75 97 Room Air 97.0 02/18/18 00:00 97.0 83 20 125/75 97 Room Air 97.0 02/17/18 23:13 132/71 02/17/18 20:00 98.2 84 20 136/69 98 Room Air 98.2 02/17/18 19:19 84 22 Room Air 21 02/17/18 18:00 119/71 02/17/18 18:00 119/71 Height (Feet): 5 Height (Inches): 2.00 Weight (Pounds): 87 Objective GENERAL: The patient is a thin-appearing female, in no apparent distress. HEENT: Eyes, pupils equal and responsive to light and accommodation. Extraocular movements are intact. NECK: Supple. No lymphadenopathy. CHEST: Lungs are clear to auscultation bilaterally without wheezes or rales. CARDIOVASCULAR: Regular rhythm and rate. S1, S2 normal without murmurs, rubs, or gallops. ABDOMEN: Soft, nontender, nondistended. Positive bowel sounds. No evidence of hepatosplenomegaly. Currently, no rebound or guarding noted. EXTREMITIES: Negative for clubbing, cyanosis, or edema. There are multiple ulcers over the right leg and right arm which are healing. Current Medications Medications (Trade) Dose Ordered Sig/Finn Route PRN Reason Start Time Stop Time Status Last Admin Dose Admin Atorvastatin Calcium (Lipitor) 80 mg BEDTIME ORAL 02/13/18 21:00 03/15/18 20:59 02/13/18 21:20 Benzonatate (Tessalon Perles) 100 mg THREE TIMES A DAY ORAL 02/13/18 09:00 03/15/18 08:59 02/17/18 12:12 Bisacodyl (Dulcolax) 10 mg EVERY 6 HOURS PRN RECTAL Constipation 02/13/18 04:15 03/15/18 04:14 02/16/18 17:00 Clopidogrel Bisulfate (Plavix) 75 mg DAILY ORAL 02/13/18 09:00 03/15/18 08:59 02/17/18 08:45 Dextrose (Dextrose 50%) 25 ml STAT PRN IV Hypoglycemia 02/13/18 04:00 03/15/18 03:59 Dextrose (Dextrose 50%) 50 ml STAT PRN IV Hypoglycemia 02/13/18 04:00 03/15/18 03:59 Diphenhydramine HCl (Benadryl) 25 mg Q6H PRN ORAL Itching 02/13/18 04:15 03/15/18 04:14 Docusate Sodium (Colace) 100 mg THREE TIMES A DAY ORAL 02/13/18 18:00 03/15/18 17:59 02/17/18 12:13 Doxycycline Monohydrate (Vibramycin) 100 mg EVERY 12 HOURS ORAL 02/16/18 09:00 02/23/18 08:59 02/17/18 08:44 Guaifenesin (Robitussin) 200 mg Q4H PRN ORAL For Cough 02/13/18 04:15 03/15/18 04:14 Hydroxyzine HCl (Atarax) 25 mg Q6HR PRN ORAL Itching 02/13/18 04:15 03/15/18 04:14 Insulin Aspart (NovoLOG) BEFORE MEALS AND HS SUBQ 02/13/18 06:30 03/15/18 06:29 02/16/18 21:01 Insulin Detemir (Levemir) 5 units DAILY SUBQ 02/13/18 09:00 03/15/18 08:59 02/16/18 09:00 Lidocaine (Lidoderm 5% PATCH) 1 patch EVERY 12 HOURS PRN TDERMAL For Pain 02/13/18 04:15 03/15/18 04:14 Lisinopril (Zestril) 2.5 mg BID ORAL 02/16/18 09:30 03/18/18 09:29 02/16/18 18:17 Nitroglycerin (Nitro-Bid) 0.5 inch EVERY 6 HOURS TOPIC 02/16/18 00:00 03/18/18 00:00 02/16/18 18:17 Pantoprazole (Protonix) 40 mg EVERY 12 HOURS ORAL 02/13/18 21:00 03/15/18 20:59 02/17/18 08:45 Promethazine HCl/ Codeine (Phenergan with Codeine) 5 ml Q4H PRN ORAL For Cough 02/13/18 12:45 03/15/18 12:44 Quetiapine Fumarate (SEROquel) 25 mg DAILYPRN PRN ORAL PRIOR TO HD SESSIONS ONLY 02/13/18 08:45 03/15/18 08:44 Sevelamer Carbonate (Renvela) 1,600 mg THREE TIMES A DAY ORAL 02/13/18 18:00 03/15/18 08:59 02/16/18 18:18 Tramadol HCl (Ultram) 25 mg Q6H PRN ORAL Moderate Pain (Pain Scale 4-6) 02/13/18 07:00 02/20/18 06:59 02/17/18 08:44 Vitamin B Complex/ Vit C/Folic Acid (Nephrovite) 1 tab DAILY ORAL 02/13/18 09:00 03/15/18 08:59 02/17/18 08:44 Cora Smith M.D. Feb 18, 2018 16:16
--- NOTE | 2018-02-18 18:15 | Progress Note ---
DATE: 02/18/2018 SUBJECTIVE: The patient has been uncooperative during the weekend, has been refusing care including dialysis, confused. The family also has not been giving consent to dialysis, agitation and is not able to be engaged at this time and is also irrational. The patient is unable to understand process, communicate, or appreciate information was given to her. I also spoke to the son at length. The son stated that the patient wants to receive the dialysis in her facility. MENTAL STATUS EXAMINATION: The patient is confused and disoriented. Mood is neutral. Affect is constricted, congruent with mood. Thought process is concrete. Thought content, no suicidal or homicidal ideations. ASSESSMENT: Cognitive impairment. The patient lacks capacity to make decisions. PLAN: The plan for the patient to be discharged as the patient is refusing care . Cosmo Smith M.D. DR: Dinora JOB#: [id number] CC:
--- NOTE | 2018-02-19 10:04 | Discharge Summary ---
Discharge Summary Discharge Summary Discharge Summary DATE OF ADMISSION: 02/12/2018 DATE OF DISCHARGE: 02/18/2018 REASON FOR ADMISSION: 77 years old female with a past medical history significant for coronary artery disease, status post stent placement, congestive heart failure, cardiomyopathy, end-stage renal disease on hemodialysis, diabetes mellitus type 2, hypertension , cerebrovascular disease, status post cerebrovascular accident, peripheral vascular disease, presented to emergency department with chest pain. Chest pain was midsternal, 5 out of 10 on a scale 1-10. According to patient, chest pain started about 5-6 days ago. Chest pain increased on the day of presentation. Patient reported associated dizziness. Patient had hemodialysis earlier that morning. Patient denied shortness of breath and cough. Patient denied fever and chills. Further evaluation in emergency department revealed stable vital signs. Laboratory workup revealed elevated troponin -1.55. Pro BNP 5846. EKG revealed normal sinus rhythm, no acute ischemic changes. Chest x -ray revealed no acute cardiopulmonary pathology. BUN 17, creatinine 3.2 - consistent with known history of end-stage renal disease. Patient was admitted with diagnosis of acute coronary syndrome to telemetry floor for further management CONSULTANTS: endband cutter hand Dr. Simental pulmonary Dr. Joyce ID specialist Dr. Cruz acetone button paster Dr. Newton psychiatrist [facility]SE: Patient admitted to telemetry floor. Staff Design Engineer closely followed. Echocardiogram revealed ejection fraction of 40%. Mild left ventricular hypertrophy. No evidence of pericardial effusion. Moderate to severe aortic stenosis. Moderate mitral regurgitation. Elevated left atrial pressure, grade 2. Moderate to severe tricuspid regurgitation. Right ventricular systolic pressure of 56 consistent with moderate to severe pulmonary hypertension. Serial troponin demonstrated elevation with the peak to 4.22 and then started to go down , last one- 2.99. Staff Design Engineer reviewed [facility] data. She had cardiac enzyme abnormalities even at higher level in August 2017, but she had never had any cardiac workup subsequently after cardiac catheterization in 2014, which showed [id number] coronary artery disease. EKG appeared to be unchanged from previous, no acute ischemic changes. Telemetry was negative. Patient with DO NOT RESUSCITATE status. According to endband cutter hand, patient was a poor candidate for invasive evaluation. Patient denied any chest pain subsequently. Patient appeared hypotensive. All antihypertensive medications were on hold initially. In light of the low blood pressure, patient received some normal saline hydration. Blood pressure slowly improved. Patient became more awake and responsive. Patient apparently had labile blood pressure as evident from prior records. Blood pressure improved. Patient was on antiplatelet therapy with Plavix, low dose of BOOM inhibitor started along with the topical nitroglycerin. Statin was continued. Patient had dyspnea secondary to congestive heart failure. Patient noted to have cough. Aircraft Engine Cylinder Mechanic closely followed. Chest x-ray revealed no acute cardiopulmonary pathology. Supplemental oxygen provided as needed to keep pulse oximetry above 92%. Pulmonary toilet provided. Antitussive provided as needed. Infectious disease doctor closely followed. No evidence of pneumonia on chest x-ray. Right wrist with abrasion with mild surrounding cellulitis. Wound culture revealed methicillin sensitive Staph aureus. Patient was started on doxycycline for cellulitis of the right wrist. No fever no leukocytosis. Stock Broker closely followed and hemodialysis provided as per acetone button paster orders. Renal parameters and electrolytes were closely monitored and corrected as needed. Phospho binders provided. Gastric support provided. Blood sugar was managed with sliding scale insulin and Levemir. Nutritional recommendations implemented in plan of care Psychiatrist closely followed. Psychiatrist diagnosed patient with major depressive disorder and cognitive impairment . Psychiatric medication regimen provided as per psychiatrist. Patient clinically improved: no further chest pain, no shortness of breath, more awake and responsive, stable labs. Patient was stable [facility] care. FINAL DIAGNOSES: NSTEMI, possible demand related Nehr-de-cnxikqly coronary artery disease ( on cardiac catheterization 2014) End-stage renal disease, on hemodialysis Hypotension Aortic stenosis Left ventricle systolic dysfunction Congestive heart failure, diastolic Pulmonary edema Peripheral vascular disease Acute bronchitis Pulmonary hypertension Severe protein calorie malnutrition Cellulitis right wrist Diabetes mellitus Major depressive disorder Cognitive impairment DISCHARGE MEDICATIONS: See Medication Reconciliation list. DISCHARGE INSTRUCTIONS: [facility]. Follow up with medical doctor at the facility. I have been assigned to dictate discharge summary for this account. I was not involved in the patient's management. Zulma Varags NP ([place]) February 19, 2018 10:04
== END 2018-02-18 18:00 | DRG 280 ==
LOC: EDBD 23:22 → EMR 23:49 → 2E 23:59 → EDBEDREQ 02-13 00:23
DX: I21.4 Non-ST elevation (NSTEMI) myocardial infarction (principal); N18.6 End stage renal disease; E43 Unspecified severe protein-calorie malnutrition; I50.43 Acute on chronic combined systolic (congestive) and diastolic (congestive) heart failure; I13.2 Hypertensive heart and chronic kidney disease with heart failure and with stage 5 chronic kidney disease, or end stage renal disease; Z94.0 Kidney transplant status; L03.113 Cellulitis of right upper limb; L97.819 Non-pressure chronic ulcer of other part of right lower leg with unspecified severity; Z68.1 Body mass index [BMI] 19.9 or less, adult; Z99.2 Dependence on renal dialysis; J20.9 Acute bronchitis, unspecified; I73.9 Peripheral vascular disease, unspecified; E11.9 Type 2 diabetes mellitus without complications; I25.10 Atherosclerotic heart disease of native coronary artery without angina pectoris; Z95.5 Presence of coronary angioplasty implant and graft; Z96.642 Presence of left artificial hip joint; Z95.0 Presence of cardiac pacemaker; Z79.4 Long term (current) use of insulin; Z88.8 Allergy status to other drugs, medicaments and biological substances; I95.9 Hypotension, unspecified; I35.0 Nonrheumatic aortic (valve) stenosis; I27.20 Pulmonary hypertension, unspecified; S60.811A Abrasion of right wrist, initial encounter; X58.XXXA Exposure to other specified factors, initial encounter; F32.9 Major depressive disorder, single episode, unspecified; G31.84 Mild cognitive impairment of uncertain or unknown etiology; Z79.01 Long term (current) use of anticoagulants; L97.519 Non-pressure chronic ulcer of other part of right foot with unspecified severity; R09.02 Hypoxemia; Z66 Do not resuscitate; I34.0 Nonrheumatic mitral (valve) insufficiency
CPT/HCPCS: 36415; 71045; 80053; 82248; 82533; 82550; 82553; 82962; 82977; 83690; 83735; 83880; 84100; 84484; 84550; 85025; 85610; 85730; 86140; 87070; 87081; 87181; 87205; 93005; 93306; 94664; 99285; J1815; J2405; S5561